=== PATIENT | female | born 1945 | race Hispanic/Latino ===

== ENCOUNTER 2019-10-06 21:38 | Emergency (ER) | payer MEDICARE, OTHER ==
[~2019-10-06] VITALS: Ht 154.9 cm; Wt 72.6 kg
[2019-10-06] MEDS ORDERED: SODIUM CHLORIDE 0.9% 1000ML 1,000 ML IV STA (21:43)
--- NOTE | 2019-10-06 21:47 | Emergency Department Note ---
History of Present Illnes History of Present Illness History of Present Illness This is a 74 year old female with acute onset of n/v and epigastric pain since yesterday. Denies fevers . PSH significant for hysterectomy secondary to uterine CA and later gastric tumor done 1-2 years ago at [facility] by Dr Micheline Durand Historian: Patient, Family Member Arrival Mode: Car History limited by: language barrier Well Logger Required: Yes Onset (how long ago): day(s) (1) Location: epigastric Radiation: Reports abdomen Severity: moderate Duration (how long): day(s) (1) Timing of current episode: constant Progression: worsening Context: Denies recent illness, Denies recent surgery, Denies recent immobilization, Denies recent travel, Denies trauma/injury, Denies new medications, Denies hx of DVT/PE, Denies non-compliance w/ medications, Denies other Relieving factors: none Exacerbating factors: none, eating Associated symptoms: Reports nausea/vomiting Treatments prior to arrival: none Past Medical/Family History Physician Review I have reviewed the patient's past medical and family history. Any updates have been documented here. Past Medical History Recent Fever: No Clinical Suspicion of Infectio: No New/Unexplained Change in Ment: No Other Medical History: Uterine CA Gastric tumor gastritis, arthritis Other Surgery: Gastric Tumor resection hysterectomy Social History Smoking Cessation: Never Smoker Alcohol Use: None Any Illegal Drug Use: No Other Last Tetanus: ood Review of Systems Review of Systems Constitutional: Reports no symptoms EENTM: Reports no symptoms Cardiovascular: Reports no symptoms Respiratory: Reports no symptoms Gastrointestinal: Reports abdominal pain, Reports nausea, Reports vomiting Genitourinary: Reports no symptoms Musculoskeletal: Reports no symptoms Integumentary: Reports no symptoms Neurological: Reports no symptoms Psychological: Reports no symptoms Endocrine: Reports no symptoms Hematological/Lymphatic: Reports no symptoms Physical Exam Related Data Allergies: Coded Allergies: No Known Allergies (Unverified , 09/27/15) Triage Vital Signs Vital Signs Date Time Temp Pulse Resp B/P (MAP) Pulse Ox O2 Delivery O2 Flow Rate FiO2 10/06/19 21:47 99.1 81 16 143/75 99 Room Air Vital signs reviewed: Yes Physical Exam CONSTITUTIONAL Constitutional: Present well-developed, Present well-nourished HENT HENT: Present normocephalic, Present atraumatic, Present oropharynx clear/moist, Present nose normal HENT L/R: Present left ext ear normal, Present right ext ear normal EYES Eyes: Reports PERRL, Reports conjunctivae normal NECK Neck: Present ROM normal PULMONARY Pulmonary: Present effort normal, Present breath sounds normal CARDIOVASCULAR Cardiovascular: Present regular rhythm, Present heart sounds normal, Present capillary refill normal, Present normal rate GASTROINTESTINAL Abdominal: Present soft, Present tender (epigastric) GENITOURINARY Genitourinary: Present exam deferred SKIN Skin: Present warm, Present dry MUSCULOSKELETAL Musculoskeletal: Present ROM normal NEUROLOGICAL Neurological: Present alert, Present oriented x 3, Present no gross motor or sensory deficits PSYCHOLOGICAL Psychological: Present mood/affect normal, Present judgement normal Results Laboratory Lab results reviewed: Yes Laboratory comments Laboratory Tests Test 10/06/19 22:02 White Blood Count 11.62 x10e3/uL (4.8-10.8) Red Blood Count 4.47 x10e6/uL (3.6-5.1) Hemoglobin 13.7 g/dL (12.0-16.0) Hematocrit 42.6 % (34.2-44.1) Mean Corpuscular Volume 95.3 fL (81-99) Mean Corpuscular Hemoglobin 30.6 pg (28-32) Mean Corpuscular Hemoglobin Concent 32.2 g/dL (31-35) Red Cell Distribution Width 13.3 % (11.7-14.4) Platelet Count 210 x10e3/uL (140-360) Neutrophils (%) (Auto) 85.5 % (38.7-80.0) Lymphocytes (%) (Auto) 9.0 % (18.0-39.1) Monocytes (%) (Auto) 4.6 % (4.4-11.3) Eosinophils (%) (Auto) 0.3 % (0.0-6.0) Basophils (%) (Auto) 0.2 % (0.0-1.0) Neutrophils # (Auto) 9.9 (2.1-6.9) Lymphocytes # (Auto) 1.0 (1.0-3.2) Monocytes # (Auto) 0.5 (0.2-0.8) Eosinophils # (Auto) 0.0 (0.0-0.4) Basophils # (Auto) 0.0 (0.0-0.1) Absolute Immature Granulocyte (auto 0.05 x10e3/uL (0-0.1) Urine Color Yellow (YELLOW) Urine Clarity Clear (CLEAR) Urine pH 7 (5 - 7) Urine Specific [place] 1.025 (1.010-1.025) Urine Protein 1+ (NEGATIVE) Urine Glucose (UA) Negative (NEGATIVE) Urine Ketones 2+ (NEGATIVE) Urine Blood Negative (NEGATIVE) Urine Nitrite Negative (NEGATIVE) Urine Bilirubin Negative (NEGATIVE) Urine Urobilinogen 0.2 mg/dL (0.2 - 1) Urine Leukocyte Esterase Trace (NEGATIVE) Urine RBC None /HPF (0-5) Urine WBC 0-5 /HPF (0-5) Urine Epithelial Cells Moderate /LPF (NONE) Urine Transitional Epithelial Cells Few (NONE) Urine Bacteria Moderate /HPF (NONE) Sodium Level 140 mmol/L (136-145) Potassium Level 4.2 mmol/L (3.5-5.1) Chloride Level 100 mmol/L (98-107) Carbon Dioxide Level 25 mmol/L (22-29) Anion Gap 19.2 mmol/L (8-16) Blood Urea Nitrogen 11 mg/dL (7-26) Creatinine 0.82 mg/dL (0.57-1.11) Estimat Glomerular Filtration Rate > 60 ML/MIN (60-) BUN/Creatinine Ratio 13 (6-25) Glucose Level 141 mg/dL (74-118) Calcium Level 10.6 mg/dL (8.4-10.2) Total Bilirubin 0.5 mg/dL (0.2-1.2) Aspartate Amino Transf (AST/SGOT) 24 IU/L (5-34) Alanine Aminotransferase (ALT/SGPT) 25 IU/L (0-55) Alkaline Phosphatase 86 IU/L (40-150) Creatine Kinase 81 IU/L (29-168) Creatine Kinase MB 1.30 ng/mL (0-5.0) Troponin I 0.001 ng/mL (0-0.300) Total Protein 8.5 g/dL (6.5-8.1) Albumin 4.5 g/dL (3.5-5.0) Globulin 4.0 g/dL (2.3-3.5) Albumin/Globulin Ratio 1.1 (0.8-2.0) Lipase 67 U/L (8-78) Imaging Imaging results reviewed: Yes Impressions [facility] [address] [address] Patient Name: BEATRIZ AQUINO MR #: [id number] : 1945 Age/Sex: 74/F Req #: [id number] Adm Physician: Ordered by: WENDY ADAMS DO Report #: [id number] Location: ER Room/Bed: Procedure: [id number] CT/CT ABDOMEN/PELVIS W Exam Date: 10/06/19 Exam Time: 2335 REPORT STATUS: Signed EXAM: CT Abdomen and Pelvis WITH contrast INDICATION: epigastric pain COMPARISON: None. TECHNIQUE: Abdomen and pelvis were scanned utilizing a multidetector helical scanner from the lung base to the pubic symphysis after administration of IV contrast. Coronal and sagittal reformations were obtained. Routine protocol was performed. Scan was performed when during portal venous phase. IV CONTRAST: 100 mL of Isovue 370 ORAL CONTRAST: None COMPLICATIONS: None RADIATION DOSE: Total DLP: 361.29 mGy*cm Estimated effective dose: (DLP x 0.015 x size factor) mSv CTDIvol has been reviewed. It is below the limits set by the Radiation Protocol Committee (RPC). Dose modulation, iterative reconstruction, and/or weight based adjustment of the mA/kV was utilized to reduce the radiation dose to as low as reasonably achievable. FINDINGS: LINES and TUBES: None. LOWER THORAX: Unremarkable HEPATOBILIARY: Simple hepatic cyst. Mild prominence of the extra and intrahepatic biliary ducts likely due to cholecystectomy GALLBLADDER: There are cholecystectomy clips. SPLEEN: No splenomegaly. PANCREAS: No focal masses or ductal dilatation. ADRENALS: No adrenal nodules KIDNEYS/URETERS: Kidneys enhance symmetrically. No hydronephrosis. 6.1 cm simple right renal cyst. Additional right renal hypodensity that is too small to characterize, likely cyst. GI TRACT: Mildly dilated loops of small bowel measuring up to 3.3 cm with suspected transition point in the left hemiabdomen anteriorly on series #2 image 52. Distal bowel is decompressed. Subtle suggestion of fecalization within the small bowel seen on image #62. Trace free fluid adjacent to the transition point. There are diverticula within the colon without evidence of diverticulitis. Appendix is normal. There are a few short segment of the obstructive portions of the small bowel that demonstrate focal narrowing and hyperenhancement, which could be peristalsis, but an underlying inflammatory process is not excluded including inflammatory bowel disease. For reference, series #2 image 58. However, the terminal ileum appears unremarkable. PELVIC ORGANS/BLADDER: Hysterectomy. No adnexal masses. Urinary bladder unremarkable. LYMPH NODES: No lymphadenopathy. VESSELS: Unremarkable. PERITONEUM / RETROPERITONEUM: No free air. BONES: Unremarkable. SOFT TISSUES: Unremarkable. IMPRESSION: 1. Findings likely represent an early high-grade small bowel obstruction with transition point in the left lower quadrant. Trace free fluid adjacent to the transition point. Otherwise, no CT evidence of ischemia. 2. Short segments of the dilated portions of the small bowel demonstrate focal narrowing and hyperenhancement of the bowel parnell. This could represent peristalsis, but inflammatory bowel disease is not excluded. Consider follow-up abdomen and pelvis CT with contrast in 3 months to reassess. 3. Colonic diverticulosis without evidence of acute diverticulitis. Signed by: Geovanna Rees MD on 10/07/2019 12:54 AM Dictated By: GEOVANNA REES MD Transcribed By: MEIR on 10/07/1952 COPY TO: WENDY ADAMS DO~ Assessment & Plan Medical Decision Making MDM Diff Dx : SBO, Appendectomy, biliary pathology, ACS, Cancer, diverticulitis, mesenteric ischemia, COVID-19 infectoin Assessment & Plan Final Impression: (1) SBO (small bowel obstruction) (2) UTI (urinary tract infection) Depart Disposition: TRANS TO OTHER [facility] Home Meds No Active Prescriptions or Reported Meds Medications in the ED Sodium Chloride 1,000 ml @ 0 mls/hr Q0M STAT IV Last administered on 10/06/19at 22:19; Admin Dose 1,000 MLS/HR; Start 10/06/19 at 21:43; Stop 10/06/19 at 21:44 Morphine Sulfate 4 mg ONCE STAT IV Last administered on 10/06/19at 23:06; Admin Dose 4 MG; Start 10/06/19 at 22:32; Stop 10/06/19 at 22:33 Sodium Chloride 50 ml @ ud STK-MED ONCE .ROUTE ; Start 10/06/19 at 23:34; Stop 10/06/19 at 23:28; Status DC Iopamidol 74,000 mg STK-MED ONCE INJ ; Start 10/06/19 at 23:34; Stop 10/06/19 at 23:28; Status DC Piperacillin Sod/ Tazobactam Sod 50 ml @ 50 mls/hr ONCE STAT IV Last administered on 10/07/19at 02:16; Admin Dose 50 MLS/HR; Start 10/07/19 at 01:07; Stop 10/07/19 at 02:06 WENDY ADAMS DO Oct 06, 2019 21:47
[2019-10-06 22:14] LABS: BASOPHILS % 0.2 % (0.0-1.0); EOSINOPHILS % 0.3 % (0.0-6.0); HEMATOCRIT 42.6 % (34.2-44.1); HEMOGLOBIN 13.7 g/dL (12.0-16.0); MEAN CORPUSCULAR HEMOGLOBIN 30.6 pg (28-32); MEAN CORPUSCULAR HGB CONC 32.2 g/dL (31-35); MEAN CORPUSCULAR VOLUME 95.3 fL (81-99); MONOCYTES # (AUTO) 0.5 (0.2-0.8); MONOCYTES % 4.6 % (4.4-11.3); NEUTROPHILS # (AUTO) 9.9 (2.1-6.9); NEUTROPHILS % 85.5 % (38.7-80.0); PLATELET COUNT 210 x10e3/uL (140-360); RED BLOOD COUNT 4.47 x10e6/uL (3.6-5.1); RED CELL DISTRIBUTION WIDTH 13.3 % (11.7-14.4)
[2019-10-06 22:16] LABS: BILIRUBIN,URINE NEGATIVE (NEGATIVE); CLARITY,URINE CLEAR (CLEAR); COLOR,URINE YELLOW (YELLOW); KETONES,URINE 2+ (NEGATIVE); LEUKOCYTE ESTERASE ,URINE TRACE (NEGATIVE); NITRITE,URINE NEGATIVE (NEGATIVE); PROTEIN,URINE DIPSTICK 1+ (NEGATIVE); URINE UROBILINOGEN 0.2 mg/dL (0.2 - 1)
[2019-10-06 22:27] LABS: BACTERIA,URINE MODERATE /HPF; EPITHELIAL CELLS,URINE MODERATE /LPF; TRANSITIONAL EPI CELLS,URINE FEW; WBC,URINE (MAN) 0-5 /HPF (0-5)
--- OUTSIDE RECORDS SUMMARY | 2019-10-06 22:28 | XMS REPORT | Summary of Care ---
Author Author [facility] Organization [facility] Address Unknown Phone Unavailable Encounter ANKUSH Enamorado(RICKEY) [id number] Date(s): 07/13/19 - 08/11/[address] [facility] [address] [place] [address] [phone] Discharge Disposition: Home or Self Care Attending Physician: Micheline Durand MD Referring Physician: Micheline Durand MD Vital Signs Most recent to 1 oldest [Reference Range]: Height 160.5 cm (07/13/19 10:18 AM) Temperature Oral 97.9 DegF [96.4-99.1 DegF] (07/13/19 10:18 AM) Blood Pressure 106/71 mmHg [90-140/60-90 mmHg] (07/13/19 10:18 AM) Respiratory Rate 18 BRMIN [14-20 BRMIN] (07/13/19 10:18 AM) Peripheral Pulse 73 bpm Rate [60-100 bpm] (07/13/19 10:18 AM) Weight 73 kg (07/13/19 10:18 AM) Body Mass Index 28.34 m2 (07/13/19 10:18 AM) Problem List Condition Effective Dates Status Health Status Informan t Depression(Confirmed Resolved ) Arthritis(Confirmed) Active SOB (shortness of Active breath)(Confirmed)1 SOB (shortness of Resolved breath) on exertion(Confirmed) Fatigue(Confirmed) Active GERD Active (gastroesophageal reflux disease)(Confirmed) Headache(Confirmed)2 Active Frequent Active urination(Confirmed) Uterine Active cancer(Confirmed) Uterine Active cancer(Confirmed) Nausea(Confirmed) Active Nausea(Confirmed) Active Obesity(Confirmed) Active Osteoarthritis(Confi Active rmed) Leg pain, Active bilateral(Confirmed) 3 Pelvic Active pain(Confirmed) Vaginal Active itching(Confirmed) Vaginal Active itching(Confirmed) Vaginal Active bleeding(Confirmed) Vaginal Active bleeding(Confirmed) Vaginal Active pain(Confirmed) 1Pt states sometimes when she bends down to tie her shoes 2Pt states she has headaches sometimes 3Pt states her right leg hurts more than the left leg Allergies, Adverse Reactions, Alerts No Known Medication Allergies Medications Buffered Lidocaine 0.3 mL, Route: INTRADERM, Drug Form: INJ, Dosing Weight 71.136, kg, Day of Tx, P RN Other -See Comment, port access, Routine, Start date: 10/28/17 10:00:00 CDT, Stop date: 10/29/17 9:59:00 CDT, Future Order, Cycle 6 Notes: Ingredients: 10 mg/5 ml lidocaine, 0.5 ml sodium bicarbonate 8.4% inj t otal volume = 0.3 ml Refrigerate: 14 days Room temp: 7 day Start Date: 10/28/17 Stop Date: 10/21/17 Status: Canceled CISplatin XRT (DoT) 68 mg + Overfill Diluent Estimated 50 mL + Sodium Chloride 0 .9% IV 500 mL 618 ml/hr, Infuse Over: 1 hr, Route: IVPB, 618, Drug form: INJ, Day of Tx, Prior ity: Routine, Dosing Weight 71.136 kg, Start date: 10/28/17, Cycle 6 Notes: CHEMOTHERAPY; Infuse entire contents for full doseWASTE: F/P - Black; E - Yellow Caution: Cytotoxic agent! Handle with care. Start Date: 10/28/17 Stop Date: 10/21/17 Status: Canceled dexamethasone 20 mg, 5 mL, Route: IVP, Drug form: INJ, Day of Tx, Dosing Weight 71.136, kg, Pr iority: Routine, Start date: 10/28/17, Cycle 6 Start Date: 10/28/17 Stop Date: 10/21/17 Status: Canceled diphenhydrAMINE 50 mg, 1 mL, Route: IVP, Drug form: INJ, Day of Tx, Dosing Weight 71.136, kg, MT N Allergic reaction, Push slowly through running safety line., Priority: Routine , Start date: 10/28/17 10:00:00 CDT, Stop date: 10/29/17 9:59:00 CDT, Cycle 6 Notes: (Same as: Benadryl) Start Date: 10/28/17 Stop Date: 10/21/17 Status: Canceled EPINEPHrine 1 mg/10mL injectable solution 0.1 mg, 1 mL, Route: IVP, Drug form: SOLN, Day of Tx, Dosing Weight 71.136, kg, PRN Allergic reaction, If symptoms do not resolve in 5 minutes or worsen, given 1 mL IVP through running safety line., Priority: Routine, Start date: 10/28/17 1 0:00:00 CDT... Notes: Luer lock syringe Start Date: 10/28/17 Stop Date: 10/21/17 Status: Canceled hydrocortisone 100 mg, 2 mL, Route: IVP, Drug form: PDR/INJ, Day of Tx, Dosing Weight 71.136, k g, PRN Allergic reaction, through running safety line, Priority: Routine, Start date: 10/28/17 10:00:00 CDT, Stop date: 10/29/17 9:59:00 CDT, Cycle 6 Notes: (Same as: Solu-CORTEF) Start Date: 10/28/17 Stop Date: 10/21/17 Status: Canceled ondansetron 8 mg, 4 mL, Route: IVP, Drug form: INJ, Day of Tx, Dosing Weight 71.136, kg, Rukhsana ority: Routine, Start date: 10/28/17, Cycle 6 Notes: (Same as: Ghulam) MEDICATION WASTE Product Size: 4 mgProduct Was scot: __0_ mg Start Date: 10/28/17 Stop Date: 10/21/17 Status: Canceled Sodium Chloride 0.45% IV 500 mL + magnesium sulfate IV 16 mEq 500 mL, Rate: 500 ml/hr, Infuse over: 1 hr, Route: IV, Dosing Weight 71.136 kg, Total Volume: 504, Priority: Routine, Start date: 10/28/17 10:00:00 CDT, Stop da te: 10/29/17 9:59:00 CDT, Future Order, Cycle 6, 1.75, m2 Start Date: 10/28/17 Stop Date: 10/21/17 Status: Canceled Sodium Chloride 0.9% IV 250 mL 250 mL, Rate: 25 ml/hr, Infuse over: 10 hr, Route: INJ, Dosing Weight 71.136 kg, Total Volume: 250, Priority: Routine, Start date: 10/28/17 10:00:00 CDT, Stop d ate: 10/29/17 9:59:00 CDT, Future Order, Cycle 6, 1.75, m2 Start Date: 10/28/17 Stop Date: 10/21/17 Status: Canceled Sodium Chloride 0.9% IV 500 mL 500 mL, Rate: 500 ml/hr, Infuse over: 1 hr, Route: IV, Dosing Weight 71.136 kg, Total Volume: 500, PRN Allergic reaction. Run through safety line., Priority: Ro ashleene, Start date: 10/28/17 10:00:00 CDT, Stop date: 10/29/17 9:59:00 CDT, Futur e Order, Cy... Start Date: 10/28/17 Stop Date: 10/21/17 Status: Canceled Sodium Chloride 0.9% IV 500 mL + magnesium sulfate IV 16 mEq 500 mL, Rate: 500 ml/hr, Infuse over: 1 hr, Route: IV, Dosing Weight 71.136 kg, Total Volume: 504, Priority: Routine, Start date: 10/28/17 12:00:00 CDT, Stop da te: 10/29/17 9:59:00 CDT, Future Order, Cycle 6, 1.75, m2 Start Date: 10/28/17 Stop Date: 10/21/17 Status: Canceled Zero Time Placeholder Day of Tx, 10/28/17, [phone], 10/28/17 11:00:00 CDT, Future Order, Cycle 6, -1 Start Date: 10/28/17 Stop Date: 10/21/17 Status: Canceled Results Most recent to 1 oldest [Reference Range]: CA 125 [0.0-35.0 6.9 unit/mL unit/mL] (07/13/19 11:34 AM) HPV Aptima Negative 1 [Negative] *NA* (07/13/19 12:05 PM) 1Result Comment: This nucleic acid amplification test detects fourteen high- risk HPV types (16,18,31,33,35,39,45,51,52,56,58,59,66,68) without differentiation. Source.............Cervix LMP / Prev Treat...None No. of containers..01 ThinPrep Vial Performed At: [id number] [place], [place] [id number] Duffy MD Ph:[phone] Performed At: [id number] [place], [place] [id number] Duffy MD Ph:[phone] Immunizations Given and Recorded Vaccine Date Status Refusal Reason pneumococcal 13-valent vaccine 08/17/17 Given pneumococcal 13-valent vaccine 01/11/17 Given influenza virus vaccine, inactivated 01/11/17 G iven Procedures Procedure Date Related Diagnosis Body Site Status BSO - Bilateral salpingo-oophorectomy Completed Cholecystectomy Completed Hysterectomy Completed Social History Social History Type Response Alcohol Never Smoking Status Never smoker; Type: Cigaret keshav; Previous treatment: None; Exposure to Tobacco Smoke None; Cigarette Smoking L ast 365 Days No; Reg Smoking Cessation Counseling No1 entered on: 07/13/19 1Pt has never smoked Assessment and Plan No data available for this section
--- OUTSIDE RECORDS SUMMARY | 2019-10-06 22:28 | XMS REPORT | Continuity of Care Document ---
Author Author CMEBEATRIZ [employer] Address Unknown Phone Unavailable Care Team Providers Care Land Law Examiner Name Role Phone [employer] Information Exchange Unavailable Un available Problems Problem Status Onset Date Classification Date Reported Comments Source LAB- FU Active 04/13/2019 [facility] LABS AND FOLLOW UP Active 03/12/2019 [facility] MALIGNANT NEOPLASM O,SWELLING OF LOWER E Active 01/07/[address] [facility] FOLLOW UP Active 10/06/2018 [facility] C54.1, M79.89 Active 10/03/[address] [facility] C54.1 - MALIGNANT NEOPLASM OF ENDOMETR Active 09/18/2018 LYNN Peterson LAB, F/U Active 05/19/2018 [facility] LABS /FU Active 05/05/2018 [facility] Malignant (primary) neoplasm, unspecified 03/22/2018 10/06/2018 [facility] Malignant neoplasm of endometrium 03/04/2018 09/16/2018 [facility], Janina Guzman Malignant neoplasm of overlapping sites of corpus uter i 11/27/2017 06/10/2018 [facility] LYNN Peterson LABS, F/U Active 11/01/2017 [facility] 30 DAY Active 09/18/2017 [facility] LABS AND F/U Active 08/26/2017 [facility] ENDOMETRIAL CANCER, C54.1 Acti ve 07/30/2017 [facility] CONSULT Active 03/08/2017 [facility] ENDOMETRIAL CANCER Active 12/17/2016 [facility] OVARIAN CANCER Active 11/19/2016 [facility] M54.2 - CERVICALGIA Active 01/24/2016 KARLAD Peterson Acute depression (disorder) Re solved Problem 03/2019 [facility], Janina Guzman LYNN Branham,[facility], OPID Keene Arthritis (disorder) Active Problem 08/13/2019 [facility], Janina Guzman, OPID Peterson, [facility], OPID Keene Dyspnea (finding) Active Problem 08/13/2019 Pt states sometimes when she bends down to tie her shoes [facility], KARLAD Thomas, OPID Peterson,[facility], OPID Keene Fatigue (finding) Active Problem 08/13/2019 [facility], O PID Thomas, OPID Peterson,[facility], OPID Keene Gastroesophageal reflux disease (disorder) Active Problem 08/13/2019 [facility], OPID Thomas, OPID Peterson,[facility], OPID Keene Headache (finding) Active Problem 08/13/2019 Pt states she has headaches sometimes [facility], KARLAD Thomas, OPID Peterson,[facility], OPID Keene Increased frequency of urination (finding) Active Problem 08/13/2019 [facility], KARLAD Thomas, OPID Peterson,[facility], OPID Keene Malignant neoplasm of uterus (disorder) Active Problem 08/13/2019 [facility], KARLAD Thomas, OPID Peterson,[facility], OPID Keene Obesity (disorder) Active Problem 08/13/2019 [facility], O PID Thomas, OPID Peterson,[facility], OPID Keene Osteoarthritis (disorder) Acti ve Problem 03/2019 [facility], O PID Thomas, OPID Peterson,[facility], OPID Keene Pain in lower limb (finding) A ctive Problem 03/2019 Pt states her right leg hurts more than the left leg [facility], LYNN Guzman, OPID Peterson,[facility], OPID Keene Pain in pelvis (finding) Active Problem 08/13/2019 [facility], O PID Thomas, OPID Peterson,[facility], OPID Keene Bleeding from vagina (finding) Active Problem 03/2019 [facility], O PID Thomas, OPID Peterson,[facility], OPID Keene Dyspnea on exertion (finding) Resolved Problem 03/2019 [facility], O PID Thomas, OPID Peterson,[facility], OPID Keene Nausea (finding) Active Problem 08/13/2019 [facility], O PID Jarales, OPID Peterson,[facility], OPID Keene Pruritus of vagina (disorder) Active Problem 03/2019 [facility], O PID Thomas, OPID Peterson,[facility], OPID Keene Vaginal pain (finding) Active Problem 08/13/2019 [facility], O PID Thomas, OPID Peterson,[facility], OPID Keene Other specified postprocedural states 09/16/2018 [facility] Constipation, unspecified 09/16/2018 [facility] Shortness of breath 05/11/2018 [facility] Anxiety disorder, unspecified 05/11/2018 [facility] Pelvic and perineal pain 10/06/2018 [facility] Bilateral primary osteoarthritis of knee 05/11/2018 [facility] Other senior care (current) drug therapy 06/29/2018 [facility] Endometriosis of uterus 06/04/2017 [facility] Other specified noninflammatory disorder s of cervix uteri 06/04/2017 [facility] Nicotine dependence, cigarettes, uncomplicated 06/29/2018 [facility] Gastro-esophageal reflux disease without esophagitis 10/06/2018 [facility] Obesity, unspecified 10/06/2018 [facility] Edema, unspecified 06/29/2018 [facility] Major depressive disorder, single episode, unspecified 06/29/2018 [facility] Erythematous condition, unspecified 05/25/2018 [facility] Urgency of urination 05/25/2018 [facility] Nausea with vomiting, unspecified 05/25/2018 [facility] Other fatigue 10/06/2018 [facility] Abdominal distension (gaseous) 05/25/2018 [facility] Insomnia, unspecified 05/25/2018 [facility] Dizziness and giddiness 05/25/2018 [facility] Unspecified osteoarthritis, unspecified site 10/06/2018 [facility] Frequency of micturition 10/06/2018 [facility] Headache 10/06/2018 [facility] Pain in left leg 10/06/2018 [facility] Pain in right leg 10/06/2018 [facility] Nausea 10/06/2018 [facility] MALIGNANT NEOPLASM OF OVERLAPPING SITES Active [facility] MALIGNANT NEOPLASM OF ENDOMETRIUM Active [facility] OTHER SPECIFIED SOFT TISSUE DISORDERS Active [facility] Medications Medication Details Route Status Patient Instructions Ordering Provider Order Date Source pantoprazole 40 mg oral enteric coated tablet TOME 1 TABLETA CADA STEPHANIA Active 02/17/2018 [facility] Sodium Chloride 0.9% IV 500 mL + magnesi um sulfate IV 16 mEq 500 mL, Rate: 500 ml/hr, Infuse over: 1 hr, Route: IV, Dosing Weight 71.136 kg, Total Volume: 504, Priority: Routine, Start date: 10/28/17 12:00:00 CDT, Stop date: 10/29/17 9:59:00 CDT, Future Order, Cycle 6, 1.75, m2 No Longer Active 10/28/2017 [facility], LYNN Guzman, LYNN Branham,[facility] LYNN Sexton CISplatin XRT (DoT) 68 mg + Overfill Dil uent Estimated 50 mL + Sodium Chloride 0.9% IV 500 mL Notes: CHEMOTHERAPY; Infuse entire contents for full dose WASTE: F/P - Black; E - Yellow Caution: Cytotoxic agent! Handle with care. No Longer Active 10/28/2017 [facility], LYNN Guzman, LYNN Branham,[facility], LYNN Sexton Zero Time Placeholder Day of T x, 10/28/17, [phone], 10/28/17 11:00:00 CDT, Future Order, Cycle 6, -1 No Longer Active 10/28/2017 [facility], LYNN Guzman, LYNN Branham,[facility] LYNN Sexton Ondansetron Notes: (Same as: Cristy lópez) MEDICATION WASTE Product Size: 4 mg Product Wasted: __0_ mg No Longer Active 10/28/2017 [facility], LYNN Guzman, LYNN Branham,[facility] LYNN Sexton Dexamethasone 20 mg, 5 mL, Rou te: IVP, Drug form: INJ, Day of Tx, Dosing Weight 71.136, kg, Priority: Routine, Start date: 10/28/17, Cycle 6 No Longer Active 10/28/2017 [facility], LYNN Guzman, LYNN Branham,[facility], OPID Keene Sodium Chloride 0.9% IV 250 mL 250 mL, Rate: 25 ml/hr, Infuse over: 10 hr, Route: INJ, Dosing Weight 71.136 kg, Total Volume: 250, Priority: Routine, Start date: 10/28/17 10:00:00 CDT, Stop date: 10/29/17 9:59:00 CDT, Future Order, Cycle 6, 1.75, m2 No Longer Active 10/28/2017 [facility], LYNN Guzman, LYNN Branham,[facility], OPID Keene Sodium Chloride 0.45% IV 500 mL + magnes ium sulfate IV 16 mEq 500 mL, Rate: 500 ml/hr, Infuse over: 1 hr, Route: IV, Dosing Weight 71.136 kg, Total Volume: 504, Priority: Routine, Start date: 10/28/17 10:00:00 CDT, Stop date: 10/29/17 9:59:00 CDT, Future Order, Cycle 6, 1.75, m2 No Longer Active 10/28/2017 [facility], LYNN Guzman, LYNN Branham,[facility], OPIJarett BarthKeene 10 ML Epinephrine 0.1 MG/ML Prefilled Syringe Notes: Luer lock syringe No Longer Active 10/28/2017 [facility], LYNN Guzman, LYNN Branham,[facility], OPID Keene Diphenhydramine Notes: (Same a s: Benadryl) No Longer Active 10/28/2017 [facility], LYNN Guzman, LYNN Branham,[facility], OPID Keene Sodium Chloride 0.9% IV 500 mL 500 mL, Rate: 500 ml/hr, Infuse over: 1 hr, Route: IV, Dosing Weight 71.136 kg, Total Volume: 500, PRN Allergic reaction. Run through safety line., Priority: Routine, Start date: 10/28/17 10:00:00 CDT, Stop date: 10/29/17 9:59:00 CDT, Future Order, Cy... No Longer Active 10/28/2017 [facility], LYNN Guzman, LYNN Branham,[facility] Hydrocortisone Notes: (Same as : YanetJOSE RAMONKRYS) No Longer Active 10/28/2017 [facility], [facility] Guzman, [facility] Lidocaine Notes: Ingredients: 10 mg/5 ml lidocaine, 0.5 ml sodium bicarbonate 8.4% inj total volume = 0.3 ml Refrigerate: 14 days Room temp: 7 day No Longer Active 10/28/2017 [facility], LYNN Guzman, LYNN Branham,[facility] Ondansetron 8 mg, Route: IVP, Drug form: INJ, ONCE, Dosing Weight 68.239, kg, Start date: 10/25/17 15:08:00 CDT, Stop date: 10/25/17 15:08:00 CDT No Longer Active 10/25/2017 [facility] Ondansetron 8 MG Disintegrating Tablet 8 mg = 1 tab, PO, TID, # 30 tab, 1 Refill(s), Pharmacy: [facility]/pharmacy #[id number] No Longer Active 10/25/2017 [facility] Phenergan 25 mg oral tablet 25 mg = 1 tab, PO, Q6H, # 30 tab, 0 Refill(s), Pharmacy: [facility]/pharmacy #[id number] No Longer Active 10/24/2017 [facility] Sodium Chloride 0.9% IV 500 mL + magnesi um sulfate IV 16 mEq 500 mL, Rate: 500 ml/hr, Infuse over: 1 hr, Route: IV, Dosing Weight 71.136 kg, Total Volume: 504, Priority: Routine, Start date: 10/21/17 15:10:00 CDT, Stop date: 10/22/17 13:09:00 CDT, Cycle 5, 1.75, m2 No Longer Active 10/21/2017 [facility] CISplatin XRT (DoT) 68 mg + Overfill Dil uent Estimated 50 mL + Sodium Chloride 0.9% IV 500 mL Notes: CHEMOTHERAPY; Infuse entire contents for full dose WASTE: F/P - Black; E - Yellow Caution: Cytotoxic agent! Handle with care. Inactive 10/21/2017 [facility] Zero Time Placeholder Day of T x, 10/21/17 14:10:00 CDT, 10/21/17 14:10:00 CDT, [phone], 10/21/17 14:10:00 CDT, Cycle 5, -1 Inactive 10/21/2017 [facility] Ondansetron Notes: (Same as: Cristy lópez) MEDICATION WASTE Product Size: 4 mg Product Wasted: __0_ mg Inactive 10/21/2017 [facility] Dexamethasone 20 mg, 5 mL, Rou te: IVP, Drug form: INJ, Day of Tx, Dosing Weight 71.136, kg, Priority: Routine, Start date: 10/21/17 13:40:00 CDT, Stop date: 10/21/17 13:40:00 CDT, Cycle 5 Inactive 10/21/2017 [facility] Sodium Chloride 0.9% IV 250 mL 250 mL, Rate: 25 ml/hr, Infuse over: 10 hr, Route: INJ, Dosing Weight 71.136 kg, Total Volume: 250, Priority: Routine, Start date: 10/21/17 13:10:00 CDT, Stop date: 10/22/17 13:09:00 CDT, Cycle 5, 1.75, m2 Active 10/21/2017 [facility] ntelgin Sodium Chloride 0.45% IV 500 mL + magnes ium sulfate IV 16 mEq 500 mL, Rate: 500 ml/hr, Infuse over: 1 hr, Route: IV, Dosing Weight 71.136 kg, Total Volume: 504, Priority: Routine, Start date: 10/21/17 13:10:00 CDT, Stop date: 10/22/17 13:09:00 CDT, Cycle 5, 1.75, m2 No Longer Active 10/21/2017 [facility] 10 ML Epinephrine 0.1 MG/ML Prefilled Syringe Notes: Luer lock syringe Active 10/21/2017 [facility] Diphenhydramine Notes: (Same a s: Benadryl) Active 10/21/2017 [facility] Sodium Chloride 0.9% IV 500 mL 500 mL, Rate: 500 ml/hr, Infuse over: 1 hr, Route: IV, Dosing Weight 71.136 kg, Total Volume: 500, PRN Allergic reaction. Run through safety line., Priority: Routine, Start date: 10/21/17 13:10:00 CDT, Stop date: 10/22/17 13:09:00 CDT, Cycle 5, 1.75, m2 Active 10/21/2017 [facility] Hydrocortisone Notes: (Same as : Junaid-CORTEF) Active 10/21/2017 [facility] Lidocaine Notes: Ingredients: 10 mg/5 ml lidocaine, 0.5 ml sodium bicarbonate 8.4% inj total volume = 0.3 ml Refrigerate: 14 days Room temp: 7 day Active 10/21/2017 [facility] Sodium Chloride 0.9% IV 500 mL + magnesi um sulfate IV 16 mEq 500 mL, Rate: 500 ml/hr, Infuse over: 1 hr, Route: IV, Dosing Weight 71.136 kg, Total Volume: 504, Priority: Routine, Start date: 10/15/17 14:30:00 CDT, Stop date: 10/16/17 12:29:00 CDT, Cycle 4, 1.75, m2 No Longer Active 10/15/2017 [facility] CISplatin XRT (DoT) 68 mg + Overfill Dil uent Estimated 50 mL + Sodium Chloride 0.9% IV 500 mL Notes: CHEMOTHERAPY; Infuse entire contents for full dose WASTE: F/P - Black; E - Yellow Caution: Cytotoxic agent! Handle with care. Inactive 10/15/2017 [facility] Zero Time Placeholder Day of T x, 10/15/17 13:30:00 CDT, 10/15/17 13:30:00 CDT, [phone], 10/15/17 13:30:00 CDT, Cycle 4, -1 Inactive 10/15/2017 [facility] Ondansetron Notes: (Same as: Cristy lópez) MEDICATION WASTE Product Size: 4 mg Product Wasted: __0_ mg Inactive 10/15/2017 [facility] Dexamethasone 20 mg, 5 mL, Rou te: IVP, Drug form: INJ, Day of Tx, Dosing Weight 71.136, kg, Priority: Routine, Start date: 10/15/17 13:00:00 CDT, Stop date: 10/15/17 13:00:00 CDT, Cycle 4 Inactive 10/15/2017 [facility] Sodium Chloride 0.9% IV 250 mL 250 mL, Rate: 25 ml/hr, Infuse over: 10 hr, Route: INJ, Dosing Weight 71.136 kg, Total Volume: 250, Priority: Routine, Start date: 10/15/17 12:30:00 CDT, Stop date: 10/16/17 12:29:00 CDT, Cycle 4, 1.75, m2 Active 10/15/2017 [facility] Sodium Chloride 0.45% IV 500 mL + magnes ium sulfate IV 16 mEq 500 mL, Rate: 500 ml/hr, Infuse over: 1 hr, Route: IV, Dosing Weight 71.136 kg, Total Volume: 504, Priority: Routine, Start date: 10/15/17 12:30:00 CDT, Stop date: 10/16/17 12:29:00 CDT, Cycle 4, 1.75, m2 No Longer Active 10/15/2017 [facility] 10 ML Epinephrine 0.1 MG/ML Prefilled Syringe Notes: Luer lock syringe Active 10/15/2017 [facility] Diphenhydramine Notes: (Same a s: Benadryl) No Longer Active 10/15/2017 [facility] Sodium Chloride 0.9% IV 500 mL 500 mL, Rate: 500 ml/hr, Infuse over: 1 hr, Route: IV, Dosing Weight 71.136 kg, Total Volume: 500, PRN Allergic reaction. Run through safety line., Priority: Routine, Start date: 10/15/17 12:30:00 CDT, Stop date: 10/16/17 12:29:00 CDT, Cycle 4, 1.75, m2 Active 10/15/2017 [facility] Hydrocortisone Notes: (Same as : Solu-CORTEF) Active 10/15/2017 [facility] Lidocaine Notes: Ingredients: 10 mg/5 ml lidocaine, 0.5 ml sodium bicarbonate 8.4% inj total volume = 0.3 ml Refrigerate: 14 days Room temp: 7 day Active 10/15/2017 [facility] Sodium Chloride 0.9% (Bolus) IV 1,000 mL, Route: IV, ONCE, Dosing Weight 69.091 kg, Start date: 10/10/17 15:41:00 CDT, Stop date: 10/10/17 15:41:00 CDT Inactive 10/10/2017 [facility] Ondansetron 4 mg, Route: IM, D rug form: INJ, ONCE, Dosing Weight 69.091, kg, Start date: 10/10/17 15:41:00 CDT, Stop date: 10/10/17 15:41:00 CDT Inactive 10/10/2017 [facility] prochlorperazine 5 mg oral tablet 5 mg = 1 tab, PO, TID, Please provide instructions in Kiswahili, # 30 tab, 0 Refill(s), Pharmacy: [facility]/pharmacy #[id number] No Longer Active 10/10/2017 [facility] Bisacodyl 10 MG Rectal Suppository [Dulcolax] 10 mg = 1 supp, ND, Daily, Please print instructions in equatorial guinean and educate patient., # 14 supp, 0 Refill(s), Pharmacy: [facility]/pharmacy #[id number] Active 10/10/2017 [facility] POLYETHYLENE GLYCOL 3350 142 MG/ML Oral Solution [Miralax] 17 gm, PO, Daily, Please print instructi ons in equatorial guinean and educate patient. Dissolve in water or juice., # 12 ea, 1 Refill(s), Pharmacy: [facility]/pharmacy #[id number] Active 10/10/2017 [facility] Sodium Chloride 0.9% IV 500 mL + magnesi um sulfate IV 16 mEq 500 mL, Rate: 500 ml/hr, Infuse over: 1 hr, Route: IV, Dosing Weight 71.136 kg, Total Volume: 504, Priority: Routine, Start date: 10/07/17 12:23:00 CDT, Stop date: 10/08/17 10:22:00 CDT, Cycle 3, 1.75, m2 No Longer Active 10/07/2017 [facility] CISplatin XRT (DoT) 68 mg + Overfill Dil uent Estimated 50 mL + Sodium Chloride 0.9% IV 500 mL Notes: CHEMOTHERAPY; Infuse entire contents for full dose WASTE: F/P - Black; E - Yellow Caution: Cytotoxic agent! Handle with care. Inactive 10/07/2017 [facility] Zero Time Placeholder Day of T x, 10/07/17 11:23:00 CDT, 10/07/17 11:23:00 CDT, [id number],[id number], 10/07/17 11:23:00 CDT, Cycle 3, -1 Inactive 10/07/2017 [facility] Ondansetron Notes: (Same as: Cristy lópez) MEDICATION WASTE Product Size: 4 mg Product Wasted: __0_ mg Inactive 10/07/2017 [facility] Dexamethasone 20 mg, 5 mL, Rou te: IVP, Drug form: INJ, Day of Tx, Dosing Weight 71.136, kg, Priority: Routine, Start date: 10/07/17 10:53:00 CDT, Stop date: 10/07/17 10:53:00 CDT, Cycle 3 Inactive 10/07/2017 [facility] Sodium Chloride 0.9% IV 250 mL 250 mL, Rate: 25 ml/hr, Infuse over: 10 hr, Route: INJ, Dosing Weight 71.136 kg, Total Volume: 250, Priority: Routine, Start date: 10/07/17 10:23:00 CDT, Stop date: 10/08/17 10:22:00 CDT, Cycle 3, 1.75, m2 No Longer Active 10/07/2017 [facility] Sodium Chloride 0.45% IV 500 mL + magnes ium sulfate IV 16 mEq 500 mL, Rate: 500 ml/hr, Infuse over: 1 hr, Route: IV, Dosing Weight 71.136 kg, Total Volume: 504, Priority: Routine, Start date: 10/07/17 10:23:00 CDT, Stop date: 10/08/17 10:22:00 CDT, Cycle 3, 1.75, m2 No Longer Active 10/07/2017 [facility] 10 ML Epinephrine 0.1 MG/ML Prefilled Syringe Notes: Luer lock syringe No Longer Active 10/07/2017 [facility] Diphenhydramine Notes: (Same a s: Benadryl) No Longer Active 10/07/2017 [facility] Sodium Chloride 0.9% IV 500 mL 500 mL, Rate: 500 ml/hr, Infuse over: 1 hr, Route: IV, Dosing Weight 71.136 kg, Total Volume: 500, PRN Allergic reaction. Run through safety line., Priority: Routine, Start date: 10/07/17 10:23:00 CDT, Stop date: 10/08/17 10:22:00 CDT, Cycle 3, 1.75, m2 No Longer Active 10/07/2017 [facility] Hydrocortisone Notes: (Same as : Solu-CORTEF) No Longer Active 10/07/2017 [facility] Lidocaine Notes: Ingredients: 10 mg/5 ml lidocaine, 0.5 ml sodium bicarbonate 8.4% inj total volume = 0.3 ml Refrigerate: 14 days Room temp: 7 day No Longer Active 10/07/2017 [facility] Sodium Chloride 0.9% IV 500 mL + magnesi um sulfate IV 16 mEq 500 mL, Rate: 500 ml/hr, Infuse over: 1 hr, Route: IV, Dosing Weight 71.136 kg, Total Volume: 504, Priority: Routine, Start date: 09/30/17 13:26:00 CDT, Stop date: 10/01/17 11:25:00 CDT, Cycle 2, 1.75, m2 No Longer Active 09/30/2017 [facility] CISplatin XRT (DoT) 68 mg + Overfill Dil uent Estimated 50 mL + Sodium Chloride 0.9% IV 500 mL Notes: CHEMOTHERAPY; Infuse entire contents for full dose WASTE: F/P - Black; E - Yellow Caution: Cytotoxic agent! Handle with care. Inactive 09/30/2017 [facility] n[facility] Zero Time Placeholder Day of T x, 09/30/17 12:26:00 CDT, 09/30/17 12:26:00 CDT, [id number],[id number], 09/30/17 12:26:00 CDT, Cycle 2, -1 Inactive 09/30/2017 [facility] Ondansetron Notes: (Same as: Cristy lópez) MEDICATION WASTE Product Size: 4 mg Product Wasted: __0_ mg Inactive 09/30/2017 [facility] Dexamethasone 20 mg, 5 mL, Rou te: IVP, Drug form: INJ, Day of Tx, Dosing Weight 71.136, kg, Priority: Routine, Start date: 09/30/17 11:56:00 CDT, Stop date: 09/30/17 11:56:00 CDT, Cycle 2 Inactive 09/30/2017 [facility] Sodium Chloride 0.9% IV 250 mL 250 mL, Rate: 25 ml/hr, Infuse over: 10 hr, Route: INJ, Dosing Weight 71.136 kg, Total Volume: 250, Priority: Routine, Start date: 09/30/17 11:26:00 CDT, Stop date: 10/01/17 11:25:00 CDT, Cycle 2, 1.75, m2 No Longer Active 09/30/2017 [facility] [place] [facility] Sodium Chloride 0.45% IV 500 mL + magnes ium sulfate IV 16 mEq 500 mL, Rate: 500 ml/hr, Infuse over: 1 hr, Route: IV, Dosing Weight 71.136 kg, Total Volume: 504, Priority: Routine, Start date: 09/30/17 11:26:00 CDT, Stop date: 10/01/17 11:25:00 CDT, Cycle 2, 1.75, m2 No Longer Active 09/30/2017 [facility] 10 ML Epinephrine 0.1 MG/ML Prefilled Syringe Notes: Luer lock syringe No Longer Active 09/30/2017 [facility] [place] [facility] Diphenhydramine Notes: (Same a s: Benadryl) No Longer Active 09/30/2017 [facility] Sodium Chloride 0.9% IV 500 mL 500 mL, Rate: 500 ml/hr, Infuse over: 1 hr, Route: IV, Dosing Weight 71.136 kg, Total Volume: 500, PRN Allergic reaction. Run through safety line., Priority: Routine, Start date: 09/30/17 11:26:00 CDT, Stop date: 10/01/17 11:25:00 CDT, Cycle 2, 1.75, m2 No Longer Active 09/30/2017 [facility] Hydrocortisone Notes: (Same as : Solu-CORTEF) No Longer Active 09/30/2017 [facility] Lidocaine Notes: Ingredients: 10 mg/5 ml lidocaine, 0.5 ml sodium bicarbonate 8.4% inj total volume = 0.3 ml Refrigerate: 14 days Room temp: 7 day No Longer Active 09/30/2017 [facility] [place] [facility] Ondansetron Notes: (Same as: Cristy lópez) MEDICATION WASTE Product Size: 4 mg Product Wasted: __0_ mg No Longer Active 09/25/2017 [facility] Calcium Chloride 0.0014 MEQ/ML / Potassi um Chloride 0.004 MEQ/ML / Sodium Chloride 0.103 MEQ/ML / Sodium Lactate 0.028 MEQ/ML Injectable Solution 1,000 mL, 1,000 ml/hr, Infuse Over: 1 hr , Route: IV, 1,000, Drug form: INJ, ONCE, Priority: STAT, Dosing Weight 70.545 kg, Start date: 09/25/17 16:19:00 CDT, Stop date: 09/25/17 16:19:00 CDT, Twice weekly No Longer Active 09/25/2017 [facility] Sodium Chloride 0.9% IV 1000 mL 1,000 mL, Rate: 500 ml/hr, Infuse over: 2 hr, Route: IV, Dosing Weight 70.545 kg, Total Volume: 1,000, Start date: 09/25/17 16:16:00 CDT, Duration: 30 day, Stop date: 11/24/17 16:15:00 CDT, 1.74, m2 No Longer Active 09/25/2017 [facility] Sodium Chloride 0.9% IV 500 mL + magnesi um sulfate IV 16 mEq 500 mL, Rate: 500 ml/hr, Infuse over: 1 hr, Route: IV, Dosing Weight 71.136 kg, Total Volume: 504, Priority: Routine, Start date: 09/23/17 13:22:00 CDT, Stop date: 09/24/17 11:21:00 CDT, Cycle 1, 1.75, m2 No Longer Active 09/23/2017 [facility] CISplatin XRT (DoT) 68 mg + Overfill Dil uent Estimated 50 mL + Sodium Chloride 0.9% IV 500 mL Notes: CHEMOTHERAPY; Infuse entire contents for full dose WASTE: F/P - Black; E - Yellow Caution: Cytotoxic agent! Handle with care. Inactive 09/23/2017 [facility] Zero Time Placeholder Day of T x, 09/23/17 12:22:00 CDT, 09/23/17 12:22:00 CDT, [id number], 09/23/17 12:22:00 CDT, Cycle 1, -1 Inactive 09/23/2017 [facility] potassium chloride Notes: (Enrique e as: KCL) Infuse no faster than 10 mEq/hr if given peripherally. Inactive 09/23/2017 [facility] [place] [facility] Ondansetron Notes: (Same as: Cristy lópez) MEDICATION WASTE Product Size: 4 mg Product Wasted: __0_ mg Inactive 09/23/2017 [facility] Dexamethasone 20 mg, 5 mL, Rou te: IVP, Drug form: INJ, Day of Tx, Dosing Weight 71.136, kg, Priority: Routine, Start date: 09/23/17 11:52:00 CDT, Stop date: 09/23/17 11:52:00 CDT, Cycle 1 Inactive 09/23/2017 [facility] Sodium Chloride 0.9% IV 250 mL 250 mL, Rate: 25 ml/hr, Infuse over: 10 hr, Route: INJ, Dosing Weight 71.136 kg, Total Volume: 250, Priority: Routine, Start date: 09/23/17 11:22:00 CDT, Stop date: 09/24/17 11:21:00 CDT, Cycle 1, 1.75, m2 No Longer Active 09/23/2017 [facility] [place] [facility] Sodium Chloride 0.45% IV 500 mL + magnes ium sulfate IV 16 mEq 500 mL, Rate: 500 ml/hr, Infuse over: 1 hr, Route: IV, Dosing Weight 71.136 kg, Total Volume: 504, Priority: Routine, Start date: 09/23/17 11:22:00 CDT, Stop date: 09/24/17 11:21:00 CDT, Cycle 1, 1.75, m2 No Longer Active 09/23/2017 [facility] 10 ML Epinephrine 0.1 MG/ML Prefilled Syringe Notes: Luer lock syringe No Longer Active 09/23/2017 [facility] [place] [facility] Diphenhydramine Notes: (Same a s: Benadryl) No Longer Active 09/23/2017 [facility] Sodium Chloride 0.9% IV 500 mL 500 mL, Rate: 500 ml/hr, Infuse over: 1 hr, Route: IV, Dosing Weight 71.136 kg, Total Volume: 500, PRN Allergic reaction. Run through safety line., Priority: Routine, Start date: 09/23/17 11:22:00 CDT, Stop date: 09/24/17 11:21:00 CDT, Cycle 1, 1.75, m2 No Longer Active 09/23/2017 [facility] Hydrocortisone Notes: (Same as : Solu-CORTEF) No Longer Active 09/23/2017 [facility] Lidocaine Notes: Ingredients: 10 mg/5 ml lidocaine, 0.5 ml sodium bicarbonate 8.4% inj total volume = 0.3 ml Refrigerate: 14 days Room temp: 7 day No Longer Active 09/23/2017 [facility] [place] [facility] Cephalexin 500 MG Oral Capsule [Keflex] 500 mg = 1 cap, PO, QID, X 7 day, # 28 cap, 0 Refill(s), [id number] No Longer Active 09/19/2017 [facility] Prochlorperazine 10 MG Oral Tablet 10 mg = 1 tab, PO, QID, PRN Nausea, X 30 day, # 120 tab, 1 Refill(s), [id number] No Longer Active 09/16/2017 [facility] Ondansetron 8 MG Oral Tablet 8 mg = 1 tab, PO, TID, PRN Nausea, # 90 tab, 1 Refill(s), [id number] No Longer Active 09/16/2017 [facility] Ondansetron 4 MG Oral Tablet [Zofran] 4 mg = 1 tab, PO, Q8H, PRN Nausea/vomiting, # 30 tab, 0 Refill(s), [id number] Active 08/18/2017 [facility] celecoxib 200 mg oral capsule 200 mg = 1 cap, PO, [id number], # 30 cap, 0 Refill(s), [facility]: [id number] Active 08/18/2017 [facility] acetaminophen 500 mg oral tablet 1,000 mg = 2 tab, PO, Q6Hnow, # 30 tab, 0 Refill(s), Pharmacy: [facility]/pharmacy #[id number] Active 08/18/2017 [facility] simethicone 80 mg oral tablet, chewable 80 mg = 1 tab, PO, Q6H, PRN Gas, # 30 tab, 0 Refill(s), Pharmacy: [facility]/pharmacy #[id number] Active 08/18/2017 [facility] tramadol hydrochloride 50 MG Oral Tablet 50 mg = 1 tab, PO, Q6H, PRN Pain Score 4-6, # 30 tab, 0 Refill(s) Active 08/18/2017 [facility] gabapentin 300 MG Oral Capsule 300 mg = 1 cap, PO, Q8Hnow, # 30 cap, 0 Refill(s), [id number] Active 08/18/2017 [facility] Robaxin Notes: (Same as:Robaxi n) No Longer Active 08/17/2017 [facility] Robaxin Notes: (Same as:Robaxi n) Inactive 08/16/2017 [facility] Lovenox Notes: (Same as: Loven ox) No Longer Active 08/16/2017 [facility] Acetaminophen 1,000 mg, Route: PO, Q6H, Dosing Weight 72.727, kg, Start date: 08/15/17 18:00:00 CDT, Duration: 30 day, Stop date: 09/14/17 12:00:00 CDT Inactive 08/15/2017 [facility] Magnesium Oxide Notes: (Same a s: Mag-Ox 400) Magnesium oxide [id number] elemental magnesium Dose=____mg magnesium oxide (___mg elemental magnesium) No Longer Active 08/15/2017 [facility] Senna Smooth Notes: (Same as: Senokot) No Longer Active 08/15/2017 [facility] gabapentin 800 MG Oral Tablet [Neurontin] 800 mg, 1 tab, Route: PO, Q8H, Dosing Weight 72.727, kg, Start date: 08/15/17 16:00:00 CDT, Duration: 30 day, Stop date: 09/14/17 8:00:00 CDT Inactive 08/15/2017 [facility] Zofran Notes: (Same as: Zofran) No Longer Active 08/15/2017 [facility] Ondansetron Notes: (Same as: Cristy lópez) MEDICATION WASTE Product Size: 4 mg Product Wasted: ___ mg Inactive 08/15/2017 [facility] Naloxone Notes: Same as Narcan Inactive 08/15/2017 [facility] Flumazenil Notes: (Same as: Amparo mazicon) Inactive 08/15/2017 [facility] Hydromorphone Notes: Same as D ilaudid Inactive 08/15/2017 [facility] Acetaminophen Notes: Max aceta minophen 4000 mg/day (4 gm/day). (Same as: Tylenol Extra Strength) No Longer Active 08/15/2017 [facility] hydromorphone (ANES) Route: IV , Drug form: INJ, ONCE, Stop date: 08/15/17 14:46:00 CDT Inactive 08/15/2017 [facility] [place] [facility] neostigmine (ANES) Route: IV, Drug form: INJ, ONCE, Stop date: 08/15/17 14:41:00 CDT Inactive 08/15/2017 [facility] [place] [facility] Reglan Notes: (Same as: Reglan) No Longer Active 08/15/2017 [facility] Oxycodone Hydrochloride 5 MG Oral Tablet 10 mg, Route: PO, Drug form: TAB, Q6H, Dosing Weight 72.727, kg, PRN Pain Score 7-10, Start date: 08/15/17 14:30:00 CDT, Duration: 30 day, Stop date: 09/14/17 14:29:00 CDT Inactive 08/15/2017 [facility] Dilaudid 0.2 mg, Route: IVP, Q 2H, Dosing Weight 72.727, kg, PRN Other -See Comment, Start date: 08/15/17 14:30:00 CDT, Duration: 30 day, Stop date: 09/14/17 14:29:00 CDT Inactive 08/15/2017 [facility] [place] [facility] Prochlorperazine Notes: (Same as: Compazine) No Longer Active 08/15/2017 [facility] Simethicone Notes: (Same as: Neno ylicon) No Longer Active 08/15/2017 [facility] ondansetron (ANES) Route: IV, Drug form: INJ, ONCE, Stop date: 08/15/17 14:21:00 CDT Inactive 08/15/2017 [facility] [place] [facility] dexamethasone (ANES) Route: IV , Drug form: INJ, ONCE, Stop date: 08/15/17 12:56:00 CDT Inactive 08/15/2017 [facility] [place] [facility] rocuronium (ANES) Route: IV, D rug form: INJ, ONCE, Stop date: 08/15/17 12:56:00 CDT Inactive 08/15/2017 [facility] [place] [facility] propofol (ANES) Route: IV, Arie g form: INJ, ONCE, Stop date: 08/15/17 12:56:00 CDT Inactive 08/15/2017 [facility] [place] [facility] fentaNYL (ANES) Route: IV, Arie g form: INJ, ONCE, Stop date: 08/15/17 12:56:00 CDT Inactive 08/15/2017 [facility] [facility] glycopyrrolate (ANES) Route: I V, Drug form: INJ, ONCE, Stop date: 08/15/17 12:51:00 CDT Inactive 08/15/2017 [facility] lidocaine (ANES) Route: IV, Dr ug form: INJ, ONCE, Stop date: 08/15/17 12:50:00 CDT Inactive 08/15/2017 [facility] [place] [facility] phenylephrine (ANES) Route: IV , Drug form: INJ, ONCE, Stop date: 08/15/17 12:46:00 CDT Inactive 08/15/2017 [facility] [place] [facility] ePHEDrine (ANES) Route: IV, Dr ug form: INJ, ONCE, Stop date: 08/15/17 12:46:00 CDT Inactive 08/15/2017 [facility] famotidine (ANES) Route: IV, D rug form: INJ, ONCE, Stop date: 08/15/17 12:46:00 CDT Inactive 08/15/2017 [facility] [place] [facility] metroNIDAZOLE (ANES) Route: IV , Drug form: INJ, ONCE, Stop date: 08/15/17 12:41:00 CDT Inactive 08/15/2017 [facility] [place] [facility] ceFAZolin (ANES) Route: IV, Dr ug form: INJ, ONCE, Stop date: 08/15/17 12:40:00 CDT Inactive 08/15/2017 [facility] [place] [facility] Acetaminophen Notes: Infuse ov er 15 minutes Do not exceed 4gm/day of acetaminophen MEDICATION WASTE Product Size: 1000 mg Product Wasted: ___ mg Inactive 08/15/2017 [facility] [place] [facility] celecoxib Notes: NSAID. Please check indication. Not for seizure. (Same As: CeleBREX) No Longer Active 08/15/2017 [facility] [place] [facility] gabapentin Notes: (Same as: Ne urontin) No Longer Active 08/15/2017 [facility] Tramadol Notes: Not to exceed 400mg/day. (Same As: Ultram) No Longer Active 08/15/2017 [facility] Sodium Chloride 0.9% IV (ANES) 1000 mL Route: IV, Total Volume: 1,000, Start date: 08/15/17 11:30:00 CDT, Stop date: 08/15/17 12:30:00 CDT Inactive 08/15/2017 [facility] Lactated Ringers Injection IV (ANES) 1000 mL Route: IV, Total Volume: 1,000, Start date: 08/15/17 11:10:00 CDT, Stop date: 08/15/17 12:10:00 CDT Inactive 08/15/2017 [facility] meloxicam PO, Daily, 0 Refill( s) No Longer Active 08/15/2017 [facility] pantoprazole 40 mg, PO, Daily, # 30 tab, 0 Refill(s) Active 08/15/2017 [facility] Flagyl Notes: (Same as: Flagyl ) Avoid alcohol. No Longer Active 08/14/2017 [facility] remove patch Notes: Remove old patch before application of new patch. No Longer Active 08/14/2017 [facility] CeleBREX Notes: NSAID. Please check indication. Not for seizure. (Same As: CeleBREX) N o Longer Active 08/14/2017 [facility] [place] [facility] Neurontin Notes: (Same as: Nima rontin) No Longer Active 08/14/2017 [facility] ceFAZolin + sterile water 20 mL Notes: (Same As: Maury Samuelszol) MEDICATION WASTE Product Size: 1000 mg Product Wasted: ___ mg No Longer Active 08/14/2017 [facility] scopolamine Notes: Change patc h every 72 hours (Same as: Transderm-Scop) No Longer Active 08/14/2017 [facility] [place] [facility] heparin Notes: porcine heparin No Longer Active 08/14/2017 [facility] Omeprazole 40 mg, PO, Daily No Longer Active 08/05/2017 [facility] ibuprofen 800 mg oral tablet 8 00 mg = 1 tab, PO, Q8H, PRN Pain, Take with food, # 90 tab, 0 Refill(s), [id number] Active 01/11/2017 [facility] enoxaparin 40 mg/0.4 mL subcutaneous solution 40 mg = 0.4 mL, SUB-Q, [id number], # 28 syr, 0 Refill(s), Pharmacy: [facility]/pharmacy #[id number] Active 01/11/2017 [facility] tramadol hydrochloride 50 MG Oral Tablet See Instructions, PRN Pain Score 4-6, 1-2 tab PO Q6H, # 30 tab, 0 Refill(s) Active 01/11/2017 [facility] senna 8.6 mg oral tablet 17.2 mg = 2 tab, PO, BID, # 36 tab, 0 Refill(s), Pharmacy: [facility]/pharmacy #[id number] Active 01/11/2017 [facility] [facility] Lovenox Notes: (Same as: Loven ox) Inactive 01/11/2017 [facility] Streptococcus pneumoniae serotype 1 caps ular antigen diphtheria [id number] protein conjugate vaccine / Streptococcus pneumoniae serotype 14 capsular antigen diphtheria [id number] protein conjugate vaccine / Streptococcus pneumoniae serotype 18C capsular antigen d Notes: Shake well prior to use (Same as: Prevnar 13) Inactive 01/11/2017 [facility] influenza virus vaccine, inactivated Notes: (Same as: Fluzone Quadrivalent, Fluarix Quadrivalent) For 3 years of age and older (0.5 mL IM) Shake well before use Inactive 01/11/2017 [facility] [place] [facility] Tramadol 100 mg, 2 tab, Route: PO, Drug form: TAB, Q6H, Dosing Weight 71.818, kg, PRN Pain Score 7-10, Start date: 01/10/17 22:53:00 M[employer]IMEDIA AUTHORING SPECIALIST, Duration: 30 day, Stop date: 02/09/17 22:52:00 MULTIM[employer]IA AUTHORING SPECIALIST No Longer Active 01/11/2017 [facility] acetaminophen 1,000 mg, 2 tab, Route: PO, Drug form: TAB, Q6H, Dosing Weight 71.818, kg, Start date: 01/10/17 17:00:00 MULTIMEDIA AUTHORING SPECIALIST, Duration: 30 day, Stop date: 02/09/17 11:00:00 MULTIMEDIA AUTHORING SPECIALIST No Longer Active 01/10/2017 [facility] [place] [facility] Celebrex 200 mg, 1 cap, Route: PO, Drug form: CAP, BID, Dosing Weight 71.818, kg, Start date: 01/10/17 17:00:00 MULTIMEDIA AUTHORING SPECIALIST, Duration: 30 day, Stop date: 02/09/17 9:00:00 MULTIMEDIA AUTHORING SPECIALIST No Longer Active 01/10/2017 [facility] [place] [facility] Zofran Notes: (Same as: Zofran) No Longer Active 01/10/2017 [facility] Neurontin Notes: (Same as: Nima rontin) No Longer Active 01/10/2017 [facility] sennosides, [facility] Notes: (Same a s: Senokot) No Longer Active 01/10/2017 [facility] Ondansetron Notes: (Same as: Cristy lópez) MEDICATION WASTE Product Size: 4 mg Product Wasted: ___ mg Inactive 01/10/2017 [facility] Zofran Notes: (Same as: Zofran) Inactive 01/10/2017 [facility] gabapentin Notes: (Same as: Ne urontin) Inactive 01/10/2017 [facility] Enoxaparin 40 mg, Route: SUB-Q , Drug form: INJ, [id number], Dosing Weight 71.818, kg, Start date: 01/10/17 13:00:00 MULTIMEDIA AUTHORING SPECIALIST, Stop date: 02/08/17 13:00:00 MULTIMEDIA AUTHORING SPECIALIST Inactive 01/10/2017 [facility] [place] [facility] Simethicone Notes: (Same as: M ylicon) No Longer Active 01/10/2017 [facility] Reglan Notes: (Same as: Reglan) No Longer Active 01/10/2017 [facility] D5LR 1,000 mL 1,000 mL, Rate: 75 ml/hr, Infuse over: 13.3 hr, Route: IV, Dosing Weight 71.818 kg, Total Volume: 1,000, Start date: 01/10/17 12:39:00 MULTIMEDIA AUTHORING SPECIALIST, Duration: 30 day, Stop date: 02/09/17 12:38:00 MULTIM[employer]IA AUTHORING SPECIALIST, 1.76, m2 No Longer Active 01/10/2017 [facility] Ondansetron 4 mg, Route: IV, Q 6H, Dosing Weight 71.818, kg, Start date: 01/10/17 12:00:00 MULTIMEDIA AUTHORING SPECIALIST, Duration: 30 day, Stop date: 02/09/17 6:00:00 MULTIMEDIA AUTHORING SPECIALIST Inactive 01/10/2017 [facility] Acetaminophen 1,000 mg, 2 tab, Route: PO, Drug form: TAB, Q6H, Dosing Weight 71.818, kg, Start date: 01/10/17 12:00:00 MULTIMEDIA AUTHORING SPECIALIST, Duration: 30 day, Stop date: 02/09/17 6:00:00 MULTIMEDIA AUTHORING SPECIALIST Inactive 01/10/2017 [facility] Ondansetron 4 mg, Route: IVP, ONCE, Dosing Weight 71.818, kg, PRN Nausea & Vomiting, Start date: 01/10/17 11:59:00 MULTIMEDIA AUTHORING SPECIALIST Inactive 01/10/2017 [facility] Hydromorphone 0.5 mg, Route: I [employer], Q5Min, Dosing Weight 71.818, kg, PRN Pain Score 7-10, Start date: 01/10/17 11:59:00 MULTIM[employer] AUTHORING SPECIALIST, Duration: 4 doses or times, Stop date: Limited # of times Inactive 01/10/2017 [facility] Fentanyl 50 microgram, Route: IVP, Q5Min, Dosing Weight 71.818, kg, PRN Pain Score 7-10, Priority: Routine, Start date: 01/10/17 11:59:00 MULTIM[employer] AUTHORING SPECIALIST, Duration: 2 doses or times, Stop date: Limited # of times Inactive 01/10/2017 [facility] Naloxone 0.4 mg, Route: IVP, Q 2MIN, Dosing Weight 71.818, kg, PRN Narcotic Reversal, Start date: 01/10/17 11:59:00 MULTIMEDIA AUTHORING SPECIALIST, Duration: 8 doses or times, Stop date: Limited # of times Inactive 01/10/2017 [facility] Flumazenil 0.2 mg, Route: IVP, PRN, Dosing Weight 71.818, kg, PRN Benzodiazepine Reversal, Initial dose, Start date: 01/10/17 11:59:00 MULTIMEDIA AUTHORING SPECIALIST, Duration: 30 day, Stop date: 02/09/17 11:58:00 MULTIMEDIA AUTHORING SPECIALIST Inactive 01/10/2017 [facility] Oxycodone 5 mg, Route: PO, Arie g form: TAB, Q4H, Dosing Weight 71.818, kg, PRN Pain Score 4-6, Start date: 01/10/17 11:59:00 MULTIMEDIA AUTHORING SPECIALIST, Duration: 30 day, Stop date: 02/09/17 11:58:00 MULTIMEDIA AUTHORING SPECIALIST Inactive 01/10/2017 [facility] Tramadol 50 mg, 1 tab, Route: PO, Drug form: TAB, Q6H, Dosing Weight 71.818, kg, PRN Pain Score 4-6, Start date: 01/10/17 9:53:00 MULTIMEDIA AUTHORING SPECIALIST, Duration: 30 day, Stop date: 02/09/17 9:52:00 MULTIMEDIA AUTHORING SPECIALIST No Longer Active 01/10/2017 [facility] Phenergan 12.5 mg, 0.5 mL, Rou te: IVPB, Drug form: INJ, Q6H, Dosing Weight 71.818, kg, PRN as needed for nausea/vomiting, Start date: 01/10/17 9:53:00 MULTIMEDIA AUTHORING SPECIALIST, Duration: 30 day, Stop date: 02/09/17 9:52:00 MULTIMEDIA AUTHORING SPECIALIST No Longer Active 01/10/2017 [facility] metoclopramide (ANES) Route: I V, Drug form: INJ, ONCE, Stop date: 01/10/17 8:58:00 MULTIMEDIA AUTHORING SPECIALIST Inactive 01/10/2017 [facility] rocuronium (ANES) Route: IV, D rug form: INJ, ONCE, Stop date: 01/10/17 8:58:00 MULTIMEDIA AUTHORING SPECIALIST Inactive 01/10/2017 [facility] propofol (ANES) Route: IV, Arie g form: INJ, ONCE, Stop date: 01/10/17 8:58:00 MULTIMEDIA AUTHORING SPECIALIST Inactive 01/10/2017 [facility] [facility] lidocaine (ANES) Route: IV, Dr ug form: INJ, ONCE, Stop date: 01/10/17 8:58:00 MULTIMEDIA AUTHORING SPECIALIST Inactive 01/10/2017 [facility] fentaNYL (ANES) Route: IV, Arie g form: INJ, ONCE, Stop date: 01/10/17 8:58:00 MULTIMEDIA AUTHORING SPECIALIST Inactive 01/10/2017 [facility] midazolam (ANES) Route: IV, Dr ug form: SOLN, ONCE, Stop date: 01/10/17 8:58:00 MULTIMEDIA AUTHORING SPECIALIST Inactive 01/10/2017 [facility] dexamethasone (ANES) Route: IV , Drug form: INJ, ONCE, Stop date: 01/10/17 8:58:00 MULTIMEDIA AUTHORING SPECIALIST Inactive 01/10/2017 [facility] famotidine (ANES) Route: IV, D rug form: INJ, ONCE, Stop date: 01/10/17 8:58:00 MULTIMEDIA AUTHORING SPECIALIST Inactive 01/10/2017 [facility] ketAMINE (ANES) Route: IV, Arie g form: INJ, ONCE, Stop date: 01/10/17 8:58:00 MULTIMEDIA AUTHORING SPECIALIST Inactive 01/10/2017 [facility] propofol (ANES) 10 mg Route: I V, Drug form: INJ, Start date: 01/10/17 8:54:00 MULTIMEDIA AUTHORING SPECIALIST, Stop date: 01/10/17 9:54:00 MULTIMEDIA AUTHORING SPECIALIST Inactive 01/10/2017 [facility] dexmedetomidine (ANES) 100 microgram Route: IV, Drug form: INJ, Start date: 01/10/17 8:54:00 MULTIMEDIA AUTHORING SPECIALIST, Stop date: 01/10/17 9:54:00 MULTIMEDIA AUTHORING SPECIALIST Inactive 01/10/2017 [facility] 72 HR Scopolamine 0.0139 MG/HR Transdermal Patch Notes: Change patch every 72 hours (Same as: Transderm-Scop) Inactive 01/10/2017 [facility] Metronidazole Notes: (Same as: Flagyl) Avoid alcohol. Inactive 01/10/2017 [facility] Cefazolin Notes: (Same As: Anc ef, Kefzol) MEDICATION WASTE Product Size: 1000 mg Product Wasted: ___ mg Inactive 01/10/2017 [facility] gabapentin 300 MG Oral Capsule Notes: (Same as: Neurontin) No Longer Active 01/10/2017 [facility] Celebrex Notes: NSAID. Please check indication. Not for seizure. (Same As: CeleBREX ) No Longer Active 01/10/2017 [facility] heparin Notes: porcine heparin No Longer Active 01/10/2017 [facility] [facility] meloxicam 15 mg oral tablet 15 mg = 1 tab, PO, Daily, PRN Pain, # 30 tab, 1 Refill(s) Active 12/07/2016 [facility] nter Omeprazole 40 mg, PO, Daily, 0 Refill(s) Active 12/07/2016 [facility] Allergies, Adverse Reactions, Alerts Substance Category Reaction Severity Reaction type Status Date Reported Comments Source No Known Medication Allergies Assertion Drug aller gy [facility] Immunizations Immunization Date Given Site Status Last Updated Comments Source pneumococcal 13-valent vaccine 08/17/2017 [facility] [place] [place] pneumococcal 13-valent vaccine 01/12/2017 [facility] [place] [place] [place] influenza virus vaccine, inactivated 01/11/2017 [facility] [place] [place] [place] Results Order Name Results Value Reference Range Date Interpretation Comments Source IMMUNOLOGY HPV Aptima Negative Negative 07/13/2019 Result Comment: This nucleic acid amplif ication test detects fourteen high-
risk HPV types (16,18,31,33,35,39,45,51,52,56,58,59,66,68)
without differentiation.
Source.............Cervix
LMP / Prev Treat...None
No. of containers..01 ThinPrep Vial
Performed At: [facility]
[address], [place] [id number]& lt;br/>Duffy MD Ph:[phone]
Performed At: [facility]
[address], [place] [id number]
Duffy MD Ph:[phone] [facility] TUMOR MARKERS CA 125 6.9 0.0 - 35.0 07/13/2019 [facility] CHEM PANEL Glucose Lvl 112 70 - 99 03/23/2019 [facility] CHEM PANEL BUN 16 7 - 22 03/23/2019 [facility] CHEM PANEL Creatinine Lvl 0.74 0.50 - 1.40 03/23/2019 [facility] CHEM PANEL Sodium Lvl 142 135 - 145 03/23/2019 [facility] CHEM PANEL Potassium Lvl 3.8 3.5 - 5.1 03/23/2019 [facility] CHEM PANEL Chloride Lvl 105 95 - 109 03/23/2019 [facility] CHEM PANEL CO2 28 24 - 32 03/23/2019 [facility] CHEM PANEL Calcium Lvl 9.1 8.5 - 10.5 03/23/2019 [facility] CHEM PANEL Total Protein 7.5 6.4 - 8.4 03/23/2019 [facility] CHEM PANEL Albumin Lvl 3.6 3.5 - 5.0 03/23/2019 [facility] CHEM PANEL ALT 52 0 - 65 03/23/2019 [facility] CHEM PANEL AST 36 0 - 37 03/23/2019 [facility] CHEM PANEL Alk Phos 96 39 - 136 03/23/2019 [facility] CHEM PANEL Bili Total 0.3 0.2 - 1.3 03/23/2019 [facility] CHEM PANEL AGAP 12.8 10.0 - 20.0 03/23/2019 [facility] CHEM PANEL B/C Ratio 22 6 - 25 03/23/2019 [facility] CHEM PANEL Globulin 3.9 2.7 - 4.2 03/23/2019 [facility] CHEM PANEL A/G Ratio 0.9 0.7 - 1.6 03/23/2019 [facility] CHEM PANEL eGFR 81 03/23/2019 Result Comment: The eGFR is calculated using the CKD-EPI formula. In most young, healthy individuals the eGFR will be >90 mL/min/1.73m2. The eGFR declines with age. An eGFR of 60-89 may be normal in some populations, particularly the elderly, for whom the CKD-EPI formula has not been extensively validated. Use of the eGFR is not recommended in the following populations:

Individuals with unstable creatinine concentrations, including patients and those with serious co-morbid conditions.

Patients with extremes in muscle mass or diet.

The data above are obtained from the National Kidney Disease Education Program (NKDEP) which additionally recommends that when the eGFR is used in patients with extremes of body mass index for purposes of drug dosing, the eGFR should be multiplied by the estimated BMI. [facility] CHEM PANEL Magnesium Lvl 2.4 1.8 - 2.4 03/23/2019 [facility] HEMATOLOGY WBC 5.1 3.7 - 10.4 03/23/2019 [facility] HEMATOLOGY RBC 4.31 4.20 - 5.40 03/23/2019 [facility] HEMATOLOGY Hgb 13.3 12.0 - 16.0 03/23/2019 [facility] HEMATOLOGY Hct 40.5 36.0 - 48.0 03/23/2019 [facility] HEMATOLOGY MCV 94.0 80.0 - 98.0 03/23/2019 [facility] HEMATOLOGY MCH 30.8 27.0 - 31.0 03/23/2019 [facility] HEMATOLOGY MCHC 32.8 32.0 - 36.0 03/23/2019 [facility] HEMATOLOGY RDW 13.7 11.5 - 14.5 03/23/2019 [facility] HEMATOLOGY Platelet 206 133 - 450 03/23/2019 [facility] HEMATOLOGY MPV 8.1 7.4 - 10.4 03/23/2019 [facility] HEMATOLOGY Segs 77.4 45.0 - 75.0 03/23/2019 [facility] HEMATOLOGY Lymphocytes 14.0 20.0 - 40.0 03/23/2019 [facility] HEMATOLOGY Monocytes 7.1 2.0 - 12.0 03/23/2019 [facility] HEMATOLOGY Eosinophils 1.0 0.0 - 4.0 03/23/2019 [facility] HEMATOLOGY Basophils 0.5 0.0 - 1.0 03/23/2019 [facility] HEMATOLOGY Neutrophils # 3.9 1.5 - 8.1 03/23/2019 [facility] HEMATOLOGY Lymphocytes # 0.7 1.0 - 5.5 03/23/2019 [facility] HEMATOLOGY Monocytes # 0.4 0.0 - 0.8 03/23/2019 [facility] TUMOR MARKERS CA 125 4.8 0.0 - 35.0 03/23/2019 [facility] TUMOR MARKERS CA 125 5.2 0.0 - 35.0 12/15/2018 [facility] ELECTROLYTES AGAP 8.8 10.0 - 20.0 09/15/2018 [facility] ELECTROLYTES B/C Ratio 22 6 - 25 09/15/2018 [facility] ELECTROLYTES Globulin 3.9 2.7 - 4.2 09/15/2018 [facility] ELECTROLYTES A/G Ratio 0.9 0.7 - 1.6 09/15/2018 [facility] ELECTROLYTES Glucose Lvl 98 70 - 99 09/15/2018 [facility] ELECTROLYTES BUN 15 7 - 22 09/15/2018 [facility] ELECTROLYTES Creatinine Lvl 0.6 8 0.50 - 1.40 09/15/2018 [facility] ELECTROLYTES Sodium Lvl 141 135 - 145 09/15/2018 [facility] ELECTROLYTES Potassium Lvl 3.8 3.5 - 5.1 09/15/2018 [facility] ELECTROLYTES Chloride Lvl 104 95 - 109 09/15/2018 [facility] ELECTROLYTES CO2 32 24 - 32 09/15/2018 [facility] ELECTROLYTES Calcium Lvl 9.1 8.5 - 10.5 09/15/2018 [facility] ELECTROLYTES eGFR 88 09/15/2018 Result Comment: The eGFR is calculated using the CKD-EPI formula. In most young, healthy individuals the eGFR will be >90 mL/min/1.73m2. The eGFR declines with age. An eGFR of 60-89 may be normal in some populations, particularly the elderly, for whom the CKD-EPI formula has not been extensively validated. Use of the eGFR is not recommended in the following populations:

Individuals with unstable creatinine concentrations, including patients and those with serious co-morbid conditions.

Patients with extremes in muscle mass or diet.

The data above are obtained from the National Kidney Disease Education Program (NKDEP) which additionally recommends that when the eGFR is used in patients with extremes of body mass index for purposes of drug dosing, the eGFR should be multiplied by the estimated BMI. [facility] ELECTROLYTES Total Protein 7.5 6.4 - 8.4 09/15/2018 [facility] ELECTROLYTES Albumin Lvl 3.6 3.5 - 5.0 09/15/2018 [facility] ELECTROLYTES ALT 27 0 - 65 09/15/2018 [facility] ELECTROLYTES AST 19 0 - 37 09/15/2018 [facility] ELECTROLYTES Alk Phos 92 39 - 136 09/15/2018 [facility] ELECTROLYTES Bili Total 0.2 0.2 - 1.3 09/15/2018 [facility] HEMATOLOGY WBC 4.9 3.7 - 10.4 09/15/2018 [facility] HEMATOLOGY RBC 4.16 4.20 - 5.40 09/15/2018 [facility] HEMATOLOGY Hgb 13.2 12.0 - 16.0 09/15/2018 [facility] HEMATOLOGY Hct 39.4 36.0 - 48.0 09/15/2018 [facility] HEMATOLOGY MCV 94.8 80.0 - 98.0 09/15/2018 [facility] HEMATOLOGY MCH 31.8 27.0 - 31.0 09/15/2018 [facility] HEMATOLOGY MCHC 33.6 32.0 - 36.0 09/15/2018 [facility] HEMATOLOGY RDW 13.3 11.5 - 14.5 09/15/2018 [facility] HEMATOLOGY Platelet 237 133 - 450 09/15/2018 [facility] HEMATOLOGY MPV 7.2 7.4 - 10.4 09/15/2018 [facility] HEMATOLOGY Segs 72.7 45.0 - 75.0 09/15/2018 [facility] HEMATOLOGY Lymphocytes 16.8 20.0 - 40.0 09/15/2018 [facility] HEMATOLOGY Monocytes 8.8 2.0 - 12.0 09/15/2018 [facility] HEMATOLOGY Eosinophils 1.3 0.0 - 4.0 09/15/2018 [facility] HEMATOLOGY Basophils 0.4 0.0 - 1.0 09/15/2018 [facility] HEMATOLOGY Neutrophils # 3.6 1.5 - 8.1 09/15/2018 [facility] HEMATOLOGY Lymphocytes # 0.8 1.0 - 5.5 09/15/2018 [facility] HEMATOLOGY Monocytes # 0.4 0.0 - 0.8 09/15/2018 [facility] HEMATOLOGY Eosinophils # 0.1 0.0 - 0.5 09/15/2018 [facility] TUMOR MARKERS CA 125 5.4 0.0 - 35.0 09/15/2018 [facility] IMMUNOLOGY HPV (High Risk) Negat haritha Negative 05/19/2018 Result Comment: This high-risk HPV test detects thirteen high- risk types
(16/18/31/33/35/39/45/51/52/56/58/59/68) without
differentiation.

Source.............Cervix
LMP / Prev Treat...None
No. of containers..01 ThinPrep Vial
Performed At: [facility]
[address], [place] [id number]
Ritter Jessica CALVERT Ph:[phone]
Performed At: [facility]
[address], [place] [id number]
Ritter Jessica CALVERT Ph:[phone] [facility] CHEM PANEL Magnesium Lvl 2.2 1.8 - 2.4 05/19/2018 [facility] CHEM PANEL eGFR 90 05/19/2018 Result Comment: The eGFR is calculated using the CKD-EPI formula. In most young, healthy individuals the eGFR will be >90 mL/min/1.73m2. The eGFR declines with age. An eGFR of 60-89 may be normal in some populations, particularly the elderly, for whom the CKD-EPI formula has not been extensively validated. Use of the eGFR is not recommended in the following populations:

Individuals with unstable creatinine concentrations, including patients and those with serious co-morbid conditions.

Patients with extremes in muscle mass or diet.

The data above are obtained from the National Kidney Disease Education Program (NKDEP) which additionally recommends that when the eGFR is used in patients with extremes of body mass index for purposes of drug dosing, the eGFR should be multiplied by the estimated BMI. [facility] CHEM PANEL B/C Ratio 19 6 - 25 05/19/2018 [facility] CHEM PANEL Calcium Lvl 8.9 8.5 - 10.5 05/19/2018 [facility] CHEM PANEL BUN 12 7 - 22 05/19/2018 [facility] CHEM PANEL Chloride Lvl 106 95 - 109 05/19/2018 [facility] CHEM PANEL Potassium Lvl 3.8 3.5 - 5.1 05/19/2018 [facility] CHEM PANEL Creatinine Lvl 0.64 0.50 - 1.40 05/19/2018 [facility] CHEM PANEL AGAP 11.8 10.0 - 20.0 05/19/2018 [facility] CHEM PANEL CO2 30 24 - 32 05/19/2018 [facility] CHEM PANEL Sodium Lvl 144 135 - 145 05/19/2018 [facility] CHEM PANEL Glucose Lvl 106 70 - 99 05/19/2018 [facility] CHEM PANEL Total Protein 7.5 6.4 - 8.4 05/19/2018 [facility] CHEM PANEL Albumin Lvl 3.7 3.5 - 5.0 05/19/2018 [facility] CHEM PANEL ALT 31 0 - 65 05/19/2018 [facility] CHEM PANEL Alk Phos 88 39 - 136 05/19/2018 [facility] CHEM PANEL AST 21 0 - 37 05/19/2018 [facility] CHEM PANEL Bili Total 0.3 0.2 - 1.3 05/19/2018 [facility] CHEM PANEL A/G Ratio 1.0 0.7 - 1.6 05/19/2018 [facility] CHEM PANEL Globulin 3.8 2.7 - 4.2 05/19/2018 [facility] HEMATOLOGY MPV 8.0 7.4 - 10.4 05/19/2018 [facility] HEMATOLOGY Platelet 208 133 - 450 05/19/2018 [facility] HEMATOLOGY RDW 14.0 11.5 - 14.5 05/19/2018 [facility] HEMATOLOGY MCHC 33.6 32.0 - 36.0 05/19/2018 [facility] HEMATOLOGY WBC 3.5 3.7 - 10.4 05/19/2018 [facility] HEMATOLOGY MCH 31.3 27.0 - 31.0 05/19/2018 [facility] HEMATOLOGY RBC 4.13 4.20 - 5.40 05/19/2018 [facility] HEMATOLOGY MCV 93.2 80.0 - 98.0 05/19/2018 [facility] HEMATOLOGY Hgb 12.9 12.0 - 16.0 05/19/2018 [facility] HEMATOLOGY Hct 38.5 36.0 - 48.0 05/19/2018 [facility] HEMATOLOGY Lymphocytes # 0.5 1.0 - 5.5 05/19/2018 [facility] HEMATOLOGY Monocytes # 0.3 0.0 - 0.8 05/19/2018 [facility] HEMATOLOGY Basophils 0.3 0.0 - 1.0 05/19/2018 [facility] HEMATOLOGY Neutrophils # 2.7 1.5 - 8.1 05/19/2018 [facility] HEMATOLOGY Eosinophils 1.1 0.0 - 4.0 05/19/2018 [facility] HEMATOLOGY Monocytes 7.7 2.0 - 12.0 05/19/2018 [facility] HEMATOLOGY Lymphocytes 14.4 20.0 - 40.0 05/19/2018 [facility] HEMATOLOGY Segs 76.5 45.0 - 75.0 05/19/2018 [facility] TUMOR MARKERS CA 125 4.6 0.0 - 35.0 05/19/2018 [facility] CHEM PANEL Magnesium Lvl 2.1 1.8 - 2.4 02/17/2018 [facility] CHEM PANEL A/G Ratio 1.0 0.7 - 1.6 02/17/2018 [facility] CHEM PANEL Globulin 3.7 2.7 - 4.2 02/17/2018 [facility] CHEM PANEL B/C Ratio 13 6 - 25 02/17/2018 [facility] CHEM PANEL AGAP 11.5 10.0 - 20.0 02/17/2018 [facility] CHEM PANEL Alk Phos 100 39 - 136 02/17/2018 [facility] CHEM PANEL Bili Total 0.1 0.2 - 1.3 02/17/2018 [facility] CHEM PANEL ALT 24 0 - 65 02/17/2018 [facility] CHEM PANEL AST 15 0 - 37 02/17/2018 [facility] CHEM PANEL Total Protein 7.3 6.4 - 8.4 02/17/2018 [facility] CHEM PANEL Albumin Lvl 3.6 3.5 - 5.0 02/17/2018 [facility] CHEM PANEL eGFR 79 02/17/2018 Result Comment: The eGFR is calculated using the CKD-EPI formula. In most young, healthy individuals the eGFR will be >90 mL/min/1.73m2. The eGFR declines with age. An eGFR of 60-89 may be normal in some populations, particularly the elderly, for whom the CKD-EPI formula has not been extensively validated. Use of the eGFR is not recommended in the following populations:

Individuals with unstable creatinine concentrations, including patients and those with serious co-morbid conditions.

Patients with extremes in muscle mass or diet.

The data above are obtained from the National Kidney Disease Education Program (NKDEP) which additionally recommends that when the eGFR is used in patients with extremes of body mass index for purposes of drug dosing, the eGFR should be multiplied by the estimated BMI. [facility] CHEM PANEL Chloride Lvl 105 95 - 109 02/17/2018 [facility] CHEM PANEL Potassium Lvl 3.5 3.5 - 5.1 02/17/2018 [facility] CHEM PANEL Sodium Lvl 143 135 - 145 02/17/2018 [facility] CHEM PANEL Creatinine Lvl 0.76 0.50 - 1.40 02/17/2018 [facility] CHEM PANEL Calcium Lvl 8.8 8.5 - 10.5 02/17/2018 [facility] CHEM PANEL CO2 30 24 - 32 02/17/2018 [facility] CHEM PANEL Glucose Lvl 103 70 - 99 02/17/2018 [facility] CHEM PANEL BUN 10 7 - 22 02/17/2018 [facility] ELECTROLYTES AGAP 11.5 10.0 - 20.0 02/17/2018 [facility] ELECTROLYTES B/C Ratio 13 6 - 25 02/17/2018 [facility] ELECTROLYTES Globulin 3.7 2.7 - 4.2 02/17/2018 [facility] ELECTROLYTES A/G Ratio 1.0 0.7 - 1.6 02/17/2018 [facility] ELECTROLYTES Glucose Lvl 103 70 - 99 02/17/2018 [facility] ELECTROLYTES BUN 10 7 - 22 02/17/2018 [facility] ELECTROLYTES Creatinine Lvl 0.7 6 0.50 - 1.40 02/17/2018 [facility] ELECTROLYTES Sodium Lvl 143 135 - 145 02/17/2018 [facility] ELECTROLYTES Potassium Lvl 3.5 3.5 - 5.1 02/17/2018 [facility] ELECTROLYTES Chloride Lvl 105 95 - 109 02/17/2018 [facility] ELECTROLYTES CO2 30 24 - 32 02/17/2018 [facility] ELECTROLYTES Calcium Lvl 8.8 8.5 - 10.5 02/17/2018 [facility] ELECTROLYTES eGFR 79 02/17/2018 Result Comment: The eGFR is calculated using the CKD-EPI formula. In most young, healthy individuals the eGFR will be >90 mL/min/1.73m2. The eGFR declines with age. An eGFR of 60-89 may be normal in some populations, particularly the elderly, for whom the CKD-EPI formula has not been extensively validated. Use of the eGFR is not recommended in the following populations:

Individuals with unstable creatinine concentrations, including patients and those with serious co-morbid conditions.

Patients with extremes in muscle mass or diet.

The data above are obtained from the National Kidney Disease Education Program (NKDEP) which additionally recommends that when the eGFR is used in patients with extremes of body mass index for purposes of drug dosing, the eGFR should be multiplied by the estimated BMI. [facility] ELECTROLYTES Total Protein 7.3 6.4 - 8.4 02/17/2018 [facility] ELECTROLYTES Albumin Lvl 3.6 3.5 - 5.0 02/17/2018 [facility] ELECTROLYTES ALT 24 0 - 65 02/17/2018 [facility] ELECTROLYTES AST 15 0 - 37 02/17/2018 [facility] ELECTROLYTES Alk Phos 100 39 - 136 02/17/2018 [facility] ELECTROLYTES Bili Total 0.1 0.2 - 1.3 02/17/2018 [facility] HEMATOLOGY WBC 4.2 3.7 - 10.4 02/17/2018 [facility] HEMATOLOGY RBC 3.81 4.20 - 5.40 02/17/2018 [facility] HEMATOLOGY Hgb 12.2 12.0 - 16.0 02/17/2018 [facility] HEMATOLOGY Hct 36.5 36.0 - 48.0 02/17/2018 [facility] HEMATOLOGY MCV 95.8 80.0 - 98.0 02/17/2018 [facility] HEMATOLOGY MCH 32.0 27.0 - 31.0 02/17/2018 [facility] HEMATOLOGY MCHC 33.4 32.0 - 36.0 02/17/2018 [facility] HEMATOLOGY RDW 13.8 11.5 - 14.5 02/17/2018 [facility] HEMATOLOGY Platelet 213 133 - 450 02/17/2018 [facility] HEMATOLOGY MPV 7.5 7.4 - 10.4 02/17/2018 [facility] HEMATOLOGY Segs 77.1 45.0 - 75.0 02/17/2018 [facility] HEMATOLOGY Lymphocytes 11.8 20.0 - 40.0 02/17/2018 [facility] HEMATOLOGY Monocytes 9.3 2.0 - 12.0 02/17/2018 [facility] HEMATOLOGY Eosinophils 1.4 0.0 - 4.0 02/17/2018 [facility] HEMATOLOGY Basophils 0.4 0.0 - 1.0 02/17/2018 [facility] HEMATOLOGY Neutrophils # 3.3 1.5 - 8.1 02/17/2018 [facility] HEMATOLOGY Lymphocytes # 0.5 1.0 - 5.5 02/17/2018 [facility] HEMATOLOGY Monocytes # 0.4 0.0 - 0.8 02/17/2018 [facility] HEMATOLOGY Eosinophils # 0.1 0.0 - 0.5 02/17/2018 [facility] TUMOR MARKERS CA 125 5.1 0.0 - 35.0 02/17/2018 [facility] URINE AND STOOL UA Color Yellow *NA* (02/17/18 3:06 PM) Yellow 02/17/2018 [facility] URINE AND STOOL UA Turbidity Clear (02/17/18 3:06 PM) Clear 02/17/2018 [facility] URINE AND STOOL UA Spec Grav 1.015 <=1.030 02/17/2018 [facility] URINE AND STOOL UA pH 7.5 5.0 - 8.0 02/17/2018 [facility] URINE AND STOOL UA Protein Negative (02/17/18 3:06 PM) Negative 02/17/2018 [facility] URINE AND STOOL UA Glucose Negative (02/17/18 3:06 PM) Negative 02/17/2018 [facility] URINE AND STOOL UA Ketones Negative *NA* (02/17/18 3:06 PM) Negative 02/17/2018 [facility] URINE AND STOOL UA Bili Negative *NA* (02/17/18 3:06 PM) Negative 02/17/2018 [facility] URINE AND STOOL UA Blood Negative (02/17/18 3:06 PM) Negative 02/17/2018 [facility] [facility] URINE AND STOOL UA Urobilinogen 0.2 0.1 - 1.0 02/17/2018 [facility] URINE AND STOOL UA Nitrite Negative (02/17/18 3:06 PM) Negative 02/17/2018 [facility] URINE AND STOOL UA Leuk Est Trace *ABN* (02/17/18 3:06 PM) Negative 02/17/2018 [facility] URINE AND STOOL UA Sq Epi Occasional /LPF Few /LPF 02/17/2018 [facility] URINE AND STOOL UA WBC 3-5 /HPF None Seen /HPF 02/17/2018 [facility] URINE AND STOOL UA RBC None Seen (02/17/18 3:06 PM) 0 - 2 02/17/2018 [facility] URINE AND STOOL UA Bacteria None Seen (02/17/18 3:06 PM) None Seen 02/17/2018 [facility] URINE AND STOOL UA Mucus Few /LPF None Seen /LPF 02/17/2018 [facility] CHEM PANEL Magnesium Lvl 2.1 1.8 - 2.4 11/11/2017 [facility] CHEM PANEL A/G Ratio 0.9 0.7 - 1.6 11/11/2017 [facility] CHEM PANEL Globulin 3.7 2.7 - 4.2 11/11/2017 [facility] CHEM PANEL AGAP 8.9 10.0 - 20.0 11/11/2017 [facility] CHEM PANEL B/C Ratio 8 6 - 25 11/11/2017 [facility] CHEM PANEL ALT 51 0 - 65 11/11/2017 [facility] CHEM PANEL AST 32 0 - 37 11/11/2017 [facility] CHEM PANEL Alk Phos 84 39 - 136 11/11/2017 [facility] CHEM PANEL Bili Total 0.2 0.2 - 1.3 11/11/2017 [facility] CHEM PANEL Total Protein 6.9 6.4 - 8.4 11/11/2017 [facility] CHEM PANEL Albumin Lvl 3.2 3.5 - 5.0 11/11/2017 [facility] CHEM PANEL eGFR 91 11/11/2017 Result Comment: The eGFR is calculated using the CKD-EPI formula. In most young, healthy individuals the eGFR will be >90 mL/min/1.73m2. The eGFR declines with age. An eGFR of 60-89 may be normal in some populations, particularly the elderly, for whom the CKD-EPI formula has not been extensively validated. Use of the eGFR is not recommended in the following populations:

Individuals with unstable creatinine concentrations, including patients and those with serious co-morbid conditions.

Patients with extremes in muscle mass or diet.

The data above are obtained from the National Kidney Disease Education Program (NKDEP) which additionally recommends that when the eGFR is used in patients with extremes of body mass index for purposes of drug dosing, the eGFR should be multiplied by the estimated BMI. [facility] CHEM PANEL Calcium Lvl 8.5 8.5 - 10.5 11/11/2017 [facility] CHEM PANEL CO2 31 24 - 32 11/11/2017 [facility] CHEM PANEL Chloride Lvl 103 95 - 109 11/11/2017 [facility] CHEM PANEL Potassium Lvl 3.9 3.5 - 5.1 11/11/2017 [facility] CHEM PANEL Sodium Lvl 139 135 - 145 11/11/2017 [facility] CHEM PANEL Creatinine Lvl 0.62 0.50 - 1.40 11/11/2017 [facility] CHEM PANEL Glucose Lvl 126 70 - 99 11/11/2017 [facility] CHEM PANEL BUN 5 7 - 22 11/11/2017 [facility] HEMATOLOGY RBC 3.25 4.20 - 5.40 11/11/2017 [facility] HEMATOLOGY Hgb 10.1 12.0 - 16.0 11/11/2017 [facility] HEMATOLOGY MPV 7.4 7.4 - 10.4 11/11/2017 [facility] HEMATOLOGY WBC 2.0 3.7 - 10.4 11/11/2017 [facility] HEMATOLOGY MCV 92.4 80.0 - 98.0 11/11/2017 [facility] HEMATOLOGY Hct 30.1 36.0 - 48.0 11/11/2017 [facility] HEMATOLOGY MCHC 33.6 32.0 - 36.0 11/11/2017 [facility] HEMATOLOGY MCH 31.0 27.0 - 31.0 11/11/2017 [facility] HEMATOLOGY RDW 18.0 11.5 - 14.5 11/11/2017 [facility] HEMATOLOGY Platelet 205 133 - 450 11/11/2017 [facility] HEMATOLOGY Lymphocytes 23.2 20.0 - 40.0 11/11/2017 [facility] HEMATOLOGY Monocytes 19.8 2.0 - 12.0 11/11/2017 [facility] HEMATOLOGY Basophils 0.6 0.0 - 1.0 11/11/2017 [facility] HEMATOLOGY Eosinophils 0.4 0.0 - 4.0 11/11/2017 [facility] HEMATOLOGY Neutrophils # 1.1 1.5 - 8.1 11/11/2017 [facility] HEMATOLOGY Lymphocytes # 0.5 1.0 - 5.5 11/11/2017 [facility] HEMATOLOGY Monocytes # 0.4 0.0 - 0.8 11/11/2017 [facility] HEMATOLOGY Segs 56.0 45.0 - 75.0 11/11/2017 [facility] CHEM PANEL Magnesium Lvl 2.3 1.8 - 2.4 10/21/2017 [facility] CHEM PANEL B/C Ratio 18 6 - 25 10/21/2017 [facility] CHEM PANEL AGAP 12.9 10.0 - 20.0 10/21/2017 [facility] CHEM PANEL A/G Ratio 0.9 0.7 - 1.6 10/21/2017 [facility] CHEM PANEL Globulin 3.8 2.7 - 4.2 10/21/2017 [facility] CHEM PANEL eGFR 92 10/21/2017 Result Comment: The eGFR is calculated using the CKD-EPI formula. In most young, healthy individuals the eGFR will be >90 mL/min/1.73m2. The eGFR declines with age. An eGFR of 60-89 may be normal in some populations, particularly the elderly, for whom the CKD-EPI formula has not been extensively validated. Use of the eGFR is not recommended in the following populations:

Individuals with unstable creatinine concentrations, including patients and those with serious co-morbid conditions.

Patients with extremes in muscle mass or diet.

The data above are obtained from the National Kidney Disease Education Program (NKDEP) which additionally recommends that when the eGFR is used in patients with extremes of body mass index for purposes of drug dosing, the eGFR should be multiplied by the estimated BMI. [facility] CHEM PANEL Creatinine Lvl 0.61 0.50 - 1.40 10/21/2017 [facility] CHEM PANEL BUN 11 7 - 22 10/21/2017 [facility] CHEM PANEL Potassium Lvl 3.9 3.5 - 5.1 10/21/2017 [facility] CHEM PANEL Glucose Lvl 103 70 - 99 10/21/2017 [facility] CHEM PANEL CO2 27 24 - 32 10/21/2017 [facility] CHEM PANEL Sodium Lvl 138 135 - 145 10/21/2017 [facility] CHEM PANEL Chloride Lvl 102 95 - 109 10/21/2017 [facility] CHEM PANEL Calcium Lvl 8.8 8.5 - 10.5 10/21/2017 [facility] CHEM PANEL Alk Phos 95 39 - 136 10/21/2017 [facility] CHEM PANEL Bili Total 0.3 0.2 - 1.3 10/21/2017 [facility] CHEM PANEL ALT 210 0 - 65 10/21/2017 [facility] CHEM PANEL Albumin Lvl 3.3 3.5 - 5.0 10/21/2017 [facility] CHEM PANEL AST 88 0 - 37 10/21/2017 [facility] CHEM PANEL Total Protein 7.1 6.4 - 8.4 10/21/2017 [facility] HEMATOLOGY Hct 34.5 36.0 - 48.0 10/21/2017 [facility] HEMATOLOGY Hgb 11.6 12.0 - 16.0 10/21/2017 [facility] HEMATOLOGY Platelet 113 133 - 450 10/21/2017 [facility] HEMATOLOGY MPV 7.5 7.4 - 10.4 10/21/2017 [facility] HEMATOLOGY RDW 14.1 11.5 - 14.5 10/21/2017 [facility] HEMATOLOGY WBC 2.4 3.7 - 10.4 10/21/2017 [facility] HEMATOLOGY RBC 3.79 4.20 - 5.40 10/21/2017 [facility] HEMATOLOGY MCHC 33.7 32.0 - 36.0 10/21/2017 [facility] HEMATOLOGY MCV 91.1 80.0 - 98.0 10/21/2017 [facility] HEMATOLOGY MCH 30.7 27.0 - 31.0 10/21/2017 [facility] HEMATOLOGY Lymphocytes # 0.3 1.0 - 5.5 10/21/2017 [facility] HEMATOLOGY Monocytes 7.9 2.0 - 12.0 10/21/2017 [facility] HEMATOLOGY Neutrophils # 1.9 1.5 - 8.1 10/21/2017 [facility] HEMATOLOGY Basophils 0.4 0.0 - 1.0 10/21/2017 [facility] HEMATOLOGY Eosinophils 0.3 0.0 - 4.0 10/21/2017 [facility] HEMATOLOGY Segs 80.2 45.0 - 75.0 10/21/2017 [facility] HEMATOLOGY Lymphocytes 11.2 20.0 - 40.0 10/21/2017 [facility] HEMATOLOGY Monocytes # 0.2 0.0 - 0.8 10/21/2017 [facility] TUMOR MARKERS CA 125 7.2 0.0 - 35.0 10/21/2017 [facility] CHEM PANEL eGFR 88 10/15/2017 Result Comment: The eGFR is calculated using the CKD-EPI formula. In most young, healthy individuals the eGFR will be >90 mL/min/1.73m2. The eGFR declines with age. An eGFR of 60-89 may be normal in some populations, particularly the elderly, for whom the CKD-EPI formula has not been extensively validated. Use of the eGFR is not recommended in the following populations:

Individuals with unstable creatinine concentrations, including patients and those with serious co-morbid conditions.

Patients with extremes in muscle mass or diet.

The data above are obtained from the National Kidney Disease Education Program (NKDEP) which additionally recommends that when the eGFR is used in patients with extremes of body mass index for purposes of drug dosing, the eGFR should be multiplied by the estimated BMI. [facility] CHEM PANEL Calcium Lvl 8.3 8.5 - 10.5 10/15/2017 [facility] CHEM PANEL CO2 28 24 - 32 10/15/2017 [facility] CHEM PANEL BUN 7 7 - 22 10/15/2017 [facility] CHEM PANEL Creatinine Lvl 0.69 0.50 - 1.40 10/15/2017 [facility] CHEM PANEL Chloride Lvl 101 95 - 109 10/15/2017 [facility] CHEM PANEL Sodium Lvl 135 135 - 145 10/15/2017 [facility] CHEM PANEL Potassium Lvl 3.8 3.5 - 5.1 10/15/2017 [facility] CHEM PANEL Glucose Lvl 137 70 - 99 10/15/2017 [facility] CHEM PANEL Albumin Lvl 3.3 3.5 - 5.0 10/15/2017 [facility] CHEM PANEL Total Protein 6.9 6.4 - 8.4 10/15/2017 [facility] CHEM PANEL Bili Total 0.2 0.2 - 1.3 10/15/2017 [facility] CHEM PANEL ALT 201 0 - 65 10/15/2017 [facility] CHEM PANEL AST 83 0 - 37 10/15/2017 [facility] CHEM PANEL Alk Phos 91 39 - 136 10/15/2017 [facility] CHEM PANEL B/C Ratio 10 6 - 25 10/15/2017 [facility] CHEM PANEL AGAP 9.8 10.0 - 20.0 10/15/2017 [facility] CHEM PANEL Globulin 3.6 2.7 - 4.2 10/15/2017 [facility] CHEM PANEL A/G Ratio 0.9 0.7 - 1.6 10/15/2017 [facility] CHEM PANEL Magnesium Lvl 2.1 1.8 - 2.4 10/15/2017 [facility] HEMATOLOGY Lymphocytes # 0.3 1.0 - 5.5 10/15/2017 [facility] HEMATOLOGY Monocytes # 0.3 0.0 - 0.8 10/15/2017 [facility] HEMATOLOGY Lymphocytes 11.3 20.0 - 40.0 10/15/2017 [facility] HEMATOLOGY Monocytes 10.0 2.0 - 12.0 10/15/2017 [facility] HEMATOLOGY Eosinophils 0.8 0.0 - 4.0 10/15/2017 [facility] HEMATOLOGY Basophils 0.4 0.0 - 1.0 10/15/2017 [facility] HEMATOLOGY Neutrophils # 2.1 1.5 - 8.1 10/15/2017 [facility] HEMATOLOGY Segs 77.5 45.0 - 75.0 10/15/2017 [facility] HEMATOLOGY WBC 2.7 3.7 - 10.4 10/15/2017 [facility] HEMATOLOGY RDW 13.9 11.5 - 14.5 10/15/2017 [facility] HEMATOLOGY Platelet 165 133 - 450 10/15/2017 [facility] HEMATOLOGY MPV 7.5 7.4 - 10.4 10/15/2017 [facility] HEMATOLOGY RBC 3.68 4.20 - 5.40 10/15/2017 [facility] HEMATOLOGY Hgb 11.4 12.0 - 16.0 10/15/2017 [facility] HEMATOLOGY Hct 33.5 36.0 - 48.0 10/15/2017 [facility] HEMATOLOGY MCV 91.1 80.0 - 98.0 10/15/2017 [facility] HEMATOLOGY MCH 30.9 27.0 - 31.0 10/15/2017 [facility] HEMATOLOGY MCHC 34.0 32.0 - 36.0 10/15/2017 [facility] CHEM PANEL Magnesium Lvl 2.1 1.8 - 2.4 10/07/2017 [facility] ELECTROLYTES AGAP 12.2 10.0 - 20.0 10/07/2017 [facility] ELECTROLYTES B/C Ratio 14 6 - 25 10/07/2017 [facility] ELECTROLYTES Globulin 3.7 2.7 - 4.2 10/07/2017 [facility] ELECTROLYTES A/G Ratio 0.9 0.7 - 1.6 10/07/2017 [facility] ELECTROLYTES eGFR 86 10/07/2017 Result Comment: The eGFR is calculated using the CKD-EPI formula. In most young, healthy individuals the eGFR will be >90 mL/min/1.73m2. The eGFR declines with age. An eGFR of 60-89 may be normal in some populations, particularly the elderly, for whom the CKD-EPI formula has not been extensively validated. Use of the eGFR is not recommended in the following populations:

Individuals with unstable creatinine concentrations, including patients and those with serious co-morbid conditions.

Patients with extremes in muscle mass or diet.

The data above are obtained from the National Kidney Disease Education Program (NKDEP) which additionally recommends that when the eGFR is used in patients with extremes of body mass index for purposes of drug dosing, the eGFR should be multiplied by the estimated BMI. [facility] ELECTROLYTES Calcium Lvl 8.6 8.5 - 10.5 10/07/2017 [facility] ELECTROLYTES Potassium Lvl 4.2 3.5 - 5.1 10/07/2017 [facility] ELECTROLYTES Chloride Lvl 102 95 - 109 10/07/2017 [facility] ELECTROLYTES CO2 28 24 - 32 10/07/2017 [facility] ELECTROLYTES Sodium Lvl 138 135 - 145 10/07/2017 [facility] ELECTROLYTES Glucose Lvl 129 70 - 99 10/07/2017 [facility] ELECTROLYTES Creatinine Lvl 0.7 1 0.50 - 1.40 10/07/2017 [facility] ELECTROLYTES BUN 10 7 - 22 10/07/2017 [facility] ELECTROLYTES Alk Phos 88 39 - 136 10/07/2017 [facility] ELECTROLYTES ALT 121 0 - 65 10/07/2017 [facility] ELECTROLYTES AST 57 0 - 37 10/07/2017 [facility] ELECTROLYTES Bili Total 0.2 0.2 - 1.3 10/07/2017 [facility] ELECTROLYTES Total Protein 7.2 6.4 - 8.4 10/07/2017 [facility] ELECTROLYTES Albumin Lvl 3.5 3.5 - 5.0 10/07/2017 [facility] HEMATOLOGY MPV 8.2 7.4 - 10.4 10/07/2017 [facility] HEMATOLOGY MCV 91.1 80.0 - 98.0 10/07/2017 [facility] HEMATOLOGY MCH 30.6 27.0 - 31.0 10/07/2017 [facility] HEMATOLOGY Hct 36.6 36.0 - 48.0 10/07/2017 [facility] HEMATOLOGY Hgb 12.3 12.0 - 16.0 10/07/2017 [facility] HEMATOLOGY RBC 4.02 4.20 - 5.40 10/07/2017 [facility] HEMATOLOGY Platelet 206 133 - 450 10/07/2017 [facility] HEMATOLOGY RDW 14.0 11.5 - 14.5 10/07/2017 [facility] HEMATOLOGY MCHC 33.5 32.0 - 36.0 10/07/2017 [facility] HEMATOLOGY WBC 4.6 3.7 - 10.4 10/07/2017 [facility] HEMATOLOGY Monocytes # 0.3 0.0 - 0.8 10/07/2017 [facility] HEMATOLOGY Segs 84.1 45.0 - 75.0 10/07/2017 [facility] HEMATOLOGY Lymphocytes # 0.4 1.0 - 5.5 10/07/2017 [facility] HEMATOLOGY Neutrophils # 3.8 1.5 - 8.1 10/07/2017 [facility] HEMATOLOGY Basophils 0.4 0.0 - 1.0 10/07/2017 [facility] HEMATOLOGY Eosinophils 1.0 0.0 - 4.0 10/07/2017 [facility] HEMATOLOGY Monocytes 6.4 2.0 - 12.0 10/07/2017 [facility] HEMATOLOGY Lymphocytes 8.1 20.0 - 40.0 10/07/2017 [facility] HEMATOLOGY Eosinophils # 0.1 0.0 - 0.5 09/30/2017 [facility] TUMOR MARKERS CA 125 9.5 0.0 - 35.0 09/30/2017 [facility] HEMATOLOGY Eosinophils # 0.1 0.0 - 0.5 09/23/2017 [facility] CHEM PANEL eGFR 87 09/05/2017 Result Comment: The eGFR is calculated using the CKD-EPI formula. In most young, healthy individuals the eGFR will be >90 mL/min/1.73m2. The eGFR declines with age. An eGFR of 60-89 may be normal in some populations, particularly the elderly, for whom the CKD-EPI formula has not been extensively validated. Use of the eGFR is not recommended in the following populations:

Individuals with unstable creatinine concentrations, including patients and those with serious co-morbid conditions.

Patients with extremes in muscle mass or diet.

The data above are obtained from the National Kidney Disease Education Program (NKDEP) which additionally recommends that when the eGFR is used in patients with extremes of body mass index for purposes of drug dosing, the eGFR should be multiplied by the estimated BMI. [facility] CHEM PANEL POC Creatinine 0.7 0.5 - 1.4 09/05/2017 [facility] CHEM PANEL A/G Ratio 0.8 0.7 - 1.6 08/18/2017 [facility] CHEM PANEL Globulin 3.6 2.7 - 4.2 08/18/2017 [facility] CHEM PANEL AST 40 0 - 37 08/18/2017 [facility] CHEM PANEL ALT 37 0 - 65 08/18/2017 [facility] CHEM PANEL B/C Ratio 10 6 - 25 08/18/2017 [facility] CHEM PANEL eGFR 89 08/18/2017 Result Comment: The eGFR is calculated using the CKD-EPI formula. In most young, healthy individuals the eGFR will be >90 mL/min/1.73m2. The eGFR declines with age. An eGFR of 60-89 may be normal in some populations, particularly the elderly, for whom the CKD-EPI formula has not been extensively validated. Use of the eGFR is not recommended in the following populations:

Individuals with unstable creatinine concentrations, including patients and those with serious co-morbid conditions.

Patients with extremes in muscle mass or diet.

The data above are obtained from the National Kidney Disease Education Program (NKDEP) which additionally recommends that when the eGFR is used in patients with extremes of body mass index for purposes of drug dosing, the eGFR should be multiplied by the estimated BMI. [facility] CHEM PANEL Bili Total 0.4 0.2 - 1.3 08/18/2017 [facility] CHEM PANEL Albumin Lvl 2.7 3.5 - 5.0 08/18/2017 [facility] CHEM PANEL Total Protein 6.3 6.4 - 8.4 08/18/2017 [facility] CHEM PANEL Alk Phos 58 39 - 136 08/18/2017 [facility] CHEM PANEL AGAP 13.8 10.0 - 20.0 08/18/2017 [facility] CHEM PANEL Calcium Lvl 8.3 8.5 - 10.5 08/18/2017 [facility] CHEM PANEL Potassium Lvl 3.8 3.5 - 5.1 08/18/2017 [facility] CHEM PANEL Chloride Lvl 110 95 - 109 08/18/2017 [facility] CHEM PANEL CO2 25 24 - 32 08/18/2017 [facility] CHEM PANEL BUN 7 7 - 22 08/18/2017 [facility] CHEM PANEL Creatinine Lvl 0.67 0.50 - 1.40 08/18/2017 [facility] CHEM PANEL Sodium Lvl 145 135 - 145 08/18/2017 [facility] CHEM PANEL Glucose Lvl 98 70 - 99 08/18/2017 [facility] CHEM PANEL Phosphorus 2.7 2.5 - 4.5 08/18/2017 [facility] CHEM PANEL Magnesium Lvl 2.5 1.8 - 2.4 08/18/2017 [facility] HEMATOLOGY MPV 8.3 7.4 - 10.4 08/18/2017 [facility] HEMATOLOGY RDW 13.4 11.5 - 14.5 08/18/2017 [facility] HEMATOLOGY MCHC 33.8 32.0 - 36.0 08/18/2017 [facility] HEMATOLOGY MCH 32.0 27.0 - 31.0 08/18/2017 [facility] HEMATOLOGY MCV 94.9 80.0 - 98.0 08/18/2017 [facility] HEMATOLOGY Hct 30.1 36.0 - 48.0 08/18/2017 [facility] HEMATOLOGY Platelet 176 133 - 450 08/18/2017 [facility] HEMATOLOGY Hgb 10.2 12.0 - 16.0 08/18/2017 [facility] HEMATOLOGY RBC 3.17 4.20 - 5.40 08/18/2017 [facility] HEMATOLOGY WBC 6.0 3.7 - 10.4 08/18/2017 [facility] HEMATOLOGY Segs 78.1 45.0 - 75.0 08/18/2017 [facility] HEMATOLOGY Lymphocytes 15.7 20.0 - 40.0 08/18/2017 [facility] HEMATOLOGY Eosinophils # 0.1 0.0 - 0.5 08/18/2017 [facility] HEMATOLOGY Monocytes # 0.2 0.0 - 0.8 08/18/2017 [facility] HEMATOLOGY Eosinophils 1.9 0.0 - 4.0 08/18/2017 [facility] HEMATOLOGY Lymphocytes # 0.9 1.0 - 5.5 08/18/2017 [facility] HEMATOLOGY Segs-Bands # 4.7 1.5 - 8.1 08/18/2017 [facility] [facility] HEMATOLOGY Basophils 0.3 0.0 - 1.0 08/18/2017 [facility] HEMATOLOGY Monocytes 4.0 2.0 - 12.0 08/18/2017 [facility] CHEM PANEL eGFR 69 08/17/2017 Result Comment: The eGFR is calculated using the CKD-EPI formula. In most young, healthy individuals the eGFR will be >90 mL/min/1.73m2. The eGFR declines with age. An eGFR of 60-89 may be normal in some populations, particularly the elderly, for whom the CKD-EPI formula has not been extensively validated. Use of the eGFR is not recommended in the following populations:

Individuals with unstable creatinine concentrations, including patients and those with serious co-morbid conditions.

Patients with extremes in muscle mass or diet.

The data above are obtained from the National Kidney Disease Education Program (NKDEP) which additionally recommends that when the eGFR is used in patients with extremes of body mass index for purposes of drug dosing, the eGFR should be multiplied by the estimated BMI. [facility] CHEM PANEL Creatinine Lvl 0.86 0.50 - 1.40 08/17/2017 [facility] CHEM PANEL BUN 16 7 - 22 08/17/2017 [facility] CHEM PANEL Potassium Lvl 3.6 3.5 - 5.1 08/17/2017 [facility] CHEM PANEL Sodium Lvl 132 135 - 145 08/17/2017 [facility] CHEM PANEL Glucose Lvl 117 70 - 99 08/17/2017 [facility] CHEM PANEL Calcium Lvl 8.1 8.5 - 10.5 08/17/2017 [facility] CHEM PANEL CO2 24 24 - 32 08/17/2017 [facility] CHEM PANEL Albumin Lvl 3.3 3.5 - 5.0 08/17/2017 [facility] CHEM PANEL Total Protein 6.7 6.4 - 8.4 08/17/2017 [facility] CHEM PANEL Chloride Lvl 99 95 - 109 08/17/2017 [facility] CHEM PANEL Alk Phos 71 39 - 136 08/17/2017 [facility] CHEM PANEL AST 49 0 - 37 08/17/2017 [facility] CHEM PANEL Bili Total 0.7 0.2 - 1.3 08/17/2017 [facility] CHEM PANEL ALT 48 0 - 65 08/17/2017 [facility] CHEM PANEL A/G Ratio 1.0 0.7 - 1.6 08/17/2017 [facility] CHEM PANEL AGAP 12.6 10.0 - 20.0 08/17/2017 [facility] CHEM PANEL Globulin 3.4 2.7 - 4.2 08/17/2017 [facility] CHEM PANEL B/C Ratio 19 6 - 25 08/17/2017 [facility] HEMATOLOGY Basophils 0.2 0.0 - 1.0 08/17/2017 [facility] HEMATOLOGY Segs-Bands # 7.8 1.5 - 8.1 08/17/2017 [facility] HEMATOLOGY Lymphocytes # 1.4 1.0 - 5.5 08/17/2017 [facility] HEMATOLOGY Eosinophils 0.5 0.0 - 4.0 08/17/2017 [facility] HEMATOLOGY Monocytes # 0.3 0.0 - 0.8 08/17/2017 [facility] HEMATOLOGY Lymphocytes 14.5 20.0 - 40.0 08/17/2017 [facility] HEMATOLOGY Monocytes 3.6 2.0 - 12.0 08/17/2017 [facility] HEMATOLOGY Segs 81.2 45.0 - 75.0 08/17/2017 [facility] HEMATOLOGY Platelet 181 133 - 450 08/17/2017 [facility] HEMATOLOGY MPV 8.7 7.4 - 10.4 08/17/2017 [facility] HEMATOLOGY MCH 32.4 27.0 - 31.0 08/17/2017 [facility] HEMATOLOGY RDW 13.3 11.5 - 14.5 08/17/2017 [facility] HEMATOLOGY Hct 30.5 36.0 - 48.0 08/17/2017 [facility] HEMATOLOGY MCV 93.9 80.0 - 98.0 08/17/2017 [facility] HEMATOLOGY MCHC 34.5 32.0 - 36.0 08/17/2017 [facility] HEMATOLOGY RBC 3.24 4.20 - 5.40 08/17/2017 [facility] HEMATOLOGY WBC 9.6 3.7 - 10.4 08/17/2017 [facility] HEMATOLOGY Hgb 10.5 12.0 - 16.0 08/17/2017 [facility] CHEM PANEL Phosphorus 2.9 2.5 - 4.5 08/16/2017 [facility] CHEM PANEL Magnesium Lvl 2.0 1.8 - 2.4 08/16/2017 [facility] CHEM PANEL eGFR 83 08/16/2017 Result Comment: The eGFR is calculated using the CKD-EPI formula. In most young, healthy individuals the eGFR will be >90 mL/min/1.73m2. The eGFR declines with age. An eGFR of 60-89 may be normal in some populations, particularly the elderly, for whom the CKD-EPI formula has not been extensively validated. Use of the eGFR is not recommended in the following populations:

Individuals with unstable creatinine concentrations, including patients and those with serious co-morbid conditions.

Patients with extremes in muscle mass or diet.

The data above are obtained from the National Kidney Disease Education Program (NKDEP) which additionally recommends that when the eGFR is used in patients with extremes of body mass index for purposes of drug dosing, the eGFR should be multiplied by the estimated BMI. [facility] CHEM PANEL A/G Ratio 1.4 0.7 - 1.6 08/16/2017 [facility] CHEM PANEL Globulin 2.7 2.7 - 4.2 08/16/2017 [facility] CHEM PANEL Total Protein 6.4 6.4 - 8.4 08/16/2017 [facility] CHEM PANEL Calcium Lvl 8.0 8.5 - 10.5 08/16/2017 [facility] CHEM PANEL Sodium Lvl 139 135 - 145 08/16/2017 [facility] CHEM PANEL Chloride Lvl 106 95 - 109 08/16/2017 [facility] CHEM PANEL Potassium Lvl 4.4 3.5 - 5.1 08/16/2017 [facility] CHEM PANEL CO2 23 24 - 32 08/16/2017 [facility] CHEM PANEL AST 59 0 - 37 08/16/2017 [facility] CHEM PANEL Bili Total 0.5 0.2 - 1.3 08/16/2017 [facility] CHEM PANEL Alk Phos 61 39 - 136 08/16/2017 [facility] CHEM PANEL AGAP 14.4 10.0 - 20.0 08/16/2017 [facility] CHEM PANEL B/C Ratio 14 6 - 25 08/16/2017 [facility] CHEM PANEL Albumin Lvl 3.7 3.5 - 5.0 08/16/2017 [facility] CHEM PANEL ALT 68 0 - 65 08/16/2017 [facility] CHEM PANEL Creatinine Lvl 0.73 0.50 - 1.40 08/16/2017 [facility] CHEM PANEL Glucose Lvl 126 70 - 99 08/16/2017 [facility] CHEM PANEL BUN 10 7 - 22 08/16/2017 [facility] HEMATOLOGY Monocytes # 0.5 0.0 - 0.8 08/16/2017 [facility] HEMATOLOGY Lymphocytes # 0.5 1.0 - 5.5 08/16/2017 [facility] HEMATOLOGY Monocytes 5.1 2.0 - 12.0 08/16/2017 [facility] HEMATOLOGY Segs-Bands # 7.9 1.5 - 8.1 08/16/2017 [facility] HEMATOLOGY Basophils 0.1 0.0 - 1.0 08/16/2017 [facility] HEMATOLOGY Eosinophils 0.1 0.0 - 4.0 08/16/2017 [facility] HEMATOLOGY Lymphocytes 5.8 20.0 - 40.0 08/16/2017 [facility] HEMATOLOGY Segs 88.9 45.0 - 75.0 08/16/2017 [facility] HEMATOLOGY RDW 13.3 11.5 - 14.5 08/16/2017 [facility] HEMATOLOGY MCHC 33.0 32.0 - 36.0 08/16/2017 [facility] HEMATOLOGY MCH 31.4 27.0 - 31.0 08/16/2017 [facility] HEMATOLOGY MCV 95.0 80.0 - 98.0 08/16/2017 [facility] HEMATOLOGY Hct 34.2 36.0 - 48.0 08/16/2017 [facility] HEMATOLOGY WBC 8.8 3.7 - 10.4 08/16/2017 [facility] HEMATOLOGY Hgb 11.3 12.0 - 16.0 08/16/2017 [facility] HEMATOLOGY RBC 3.60 4.20 - 5.40 08/16/2017 [facility] HEMATOLOGY Platelet 191 133 - 450 08/16/2017 [facility] HEMATOLOGY MPV 9.0 7.4 - 10.4 08/16/2017 [facility] BLOOD BANK RESULTS ABO/Rh B POS 08/15/2017 [facility] BLOOD BANK RESULTS Antibody Scrn Negative (08/15/17 9:34 AM) 08/15/2017 [facility] HEMATOLOGY Eosinophils # 0.1 0.0 - 0.5 08/05/2017 [facility] HEMATOLOGY INR 0.96 0.85 - 1.17 08/05/2017 [facility] HEMATOLOGY PTT 32.7 22.9 - 35.8 08/05/2017 [facility] HEMATOLOGY PT 12.8 12.0 - 14.7 08/05/2017 [facility] CHEM PANEL Phosphorus 3.2 2.5 - 4.5 01/11/2017 [facility] CHEM PANEL Bili Total 0.4 0.2 - 1.3 01/11/2017 [facility] CHEM PANEL Alk Phos 85 39 - 136 01/11/2017 [facility] CHEM PANEL Albumin Lvl 2.7 3.5 - 5.0 01/11/2017 [facility] CHEM PANEL Total Protein 6.3 6.4 - 8.4 01/11/2017 [facility] CHEM PANEL AST 43 0 - 37 01/11/2017 [facility] CHEM PANEL ALT 78 0 - 65 01/11/2017 [facility] CHEM PANEL eGFR 90 01/11/2017 Result Comment: The eGFR is calculated using the CKD-EPI formula. In most young, healthy individuals the eGFR will be >90 mL/min/1.73m2. The eGFR declines with age. An eGFR of 60-89 may be normal in some populations, particularly the elderly, for whom the CKD-EPI formula has not been extensively validated. Use of the eGFR is not recommended in the following populations:

Individuals with unstable creatinine concentrations, including patients and those with serious co-morbid conditions.

Patients with extremes in muscle mass or diet.

The data above are obtained from the National Kidney Disease Education Program (NKDEP) which additionally recommends that when the eGFR is used in patients with extremes of body mass index for purposes of drug dosing, the eGFR should be multiplied by the estimated BMI. [facility] CHEM PANEL CO2 23 24 - 32 01/11/2017 [facility] CHEM PANEL Calcium Lvl 8.7 8.5 - 10.5 01/11/2017 [facility] CHEM PANEL Glucose Lvl 211 70 - 99 01/11/2017 [facility] CHEM PANEL BUN 8 7 - 22 01/11/2017 [facility] CHEM PANEL Sodium Lvl 141 135 - 145 01/11/2017 [facility] CHEM PANEL Chloride Lvl 108 95 - 109 01/11/2017 [facility] CHEM PANEL Creatinine Lvl 0.65 0.50 - 1.40 01/11/2017 [facility] CHEM PANEL Potassium Lvl 4.3 3.5 - 5.1 01/11/2017 [facility] CHEM PANEL A/G Ratio 0.8 0.7 - 1.6 01/11/2017 [facility] CHEM PANEL AGAP 14.3 10.0 - 20.0 01/11/2017 [facility] CHEM PANEL Globulin 3.6 2.7 - 4.2 01/11/2017 [facility] CHEM PANEL B/C Ratio 12 6 - 25 01/11/2017 [facility] CHEM PANEL Magnesium Lvl 2.2 1.8 - 2.4 01/11/2017 [facility] HEMATOLOGY Monocytes # 0.7 0.0 - 0.8 01/11/2017 [facility] HEMATOLOGY Basophils 0.1 0.0 - 1.0 01/11/2017 [facility] HEMATOLOGY Monocytes 6.6 2.0 - 12.0 01/11/2017 [facility] HEMATOLOGY Lymphocytes 10.0 20.0 - 40.0 01/11/2017 [facility] HEMATOLOGY Lymphocytes # 1.0 1.0 - 5.5 01/11/2017 [facility] HEMATOLOGY Segs-Bands # 8.7 1.5 - 8.1 01/11/2017 [facility] HEMATOLOGY Segs 83.3 45.0 - 75.0 01/11/2017 [facility] HEMATOLOGY MCV 92.4 80.0 - 98.0 01/11/2017 [facility] HEMATOLOGY Hct 35.9 36.0 - 48.0 01/11/2017 [facility] HEMATOLOGY Hgb 12.1 12.0 - 16.0 01/11/2017 [facility] HEMATOLOGY MCHC 33.9 32.0 - 36.0 01/11/2017 [facility] HEMATOLOGY RBC 3.88 4.20 - 5.40 01/11/2017 [facility] HEMATOLOGY MCH 31.3 27.0 - 31.0 01/11/2017 [facility] HEMATOLOGY MPV 8.8 7.4 - 10.4 01/11/2017 [facility] HEMATOLOGY Platelet 200 133 - 450 01/11/2017 [facility] HEMATOLOGY RDW 13.4 11.5 - 14.5 01/11/2017 [facility] HEMATOLOGY WBC 10.4 3.7 - 10.4 01/11/2017 [facility] BLOOD BANK RESULTS Antibody Scrn Negative (01/10/17 7:45 AM) 01/10/2017 [facility] BLOOD BANK RESULTS ABO/Rh B POS 01/10/2017 [facility] CHEM PANEL eGFR 92 01/02/2017 Result Comment: The eGFR is calculated using the CKD-EPI formula. In most young, healthy individuals the eGFR will be >90 mL/min/1.73m2. The eGFR declines with age. An eGFR of 60-89 may be normal in some populations, particularly the elderly, for whom the CKD-EPI formula has not been extensively validated. Use of the eGFR is not recommended in the following populations:

Individuals with unstable creatinine concentrations, including patients and those with serious co-morbid conditions.

Patients with extremes in muscle mass or diet.

The data above are obtained from the National Kidney Disease Education Program (NKDEP) which additionally recommends that when the eGFR is used in patients with extremes of body mass index for purposes of drug dosing, the eGFR should be multiplied by the estimated BMI. [facility] CHEM PANEL Bili Total 0.4 0.2 - 1.3 01/02/2017 [facility] CHEM PANEL ALT 40 0 - 65 01/02/2017 [facility] CHEM PANEL AST 24 0 - 37 01/02/2017 [facility] CHEM PANEL Calcium Lvl 9.1 8.5 - 10.5 01/02/2017 [facility] CHEM PANEL Total Protein 7.7 6.4 - 8.4 01/02/2017 [facility] CHEM PANEL Alk Phos 106 39 - 136 01/02/2017 [facility] CHEM PANEL Potassium Lvl 4.9 3.5 - 5.1 01/02/2017 [facility] CHEM PANEL Chloride Lvl 106 95 - 109 01/02/2017 [facility] CHEM PANEL Albumin Lvl 4.0 3.5 - 5.0 01/02/2017 [facility] CHEM PANEL BUN 11 7 - 22 01/02/2017 [facility] CHEM PANEL CO2 30 24 - 32 01/02/2017 [facility] CHEM PANEL Sodium Lvl 144 135 - 145 01/02/2017 [facility] CHEM PANEL Creatinine Lvl 0.62 0.50 - 1.40 01/02/2017 [facility] CHEM PANEL Glucose Lvl 93 70 - 99 01/02/2017 [facility] CHEM PANEL A/G Ratio 1.1 0.7 - 1.6 01/02/2017 [facility] CHEM PANEL B/C Ratio 18 6 - 25 01/02/2017 [facility] CHEM PANEL AGAP 12.9 10.0 - 20.0 01/02/2017 [facility] CHEM PANEL Globulin 3.7 2.7 - 4.2 01/02/2017 [facility] HEMATOLOGY Basophils 0.4 0.0 - 1.0 01/02/2017 [facility] HEMATOLOGY Eosinophils 1.7 0.0 - 4.0 01/02/2017 [facility] HEMATOLOGY Monocytes # 0.4 0.0 - 0.8 01/02/2017 [facility] HEMATOLOGY Segs-Bands # 3.3 1.5 - 8.1 01/02/2017 [facility] HEMATOLOGY Lymphocytes 32.6 20.0 - 40.0 01/02/2017 [facility] HEMATOLOGY Lymphocytes # 1.8 1.0 - 5.5 01/02/2017 [facility] HEMATOLOGY Segs 58.0 45.0 - 75.0 01/02/2017 [facility] HEMATOLOGY Monocytes 7.3 2.0 - 12.0 01/02/2017 [facility] HEMATOLOGY Eosinophils # 0.1 0.0 - 0.5 01/02/2017 [facility] HEMATOLOGY Platelet 219 133 - 450 01/02/2017 [facility] HEMATOLOGY MPV 8.7 7.4 - 10.4 01/02/2017 [facility] HEMATOLOGY MCHC 32.7 32.0 - 36.0 01/02/2017 [facility] HEMATOLOGY RDW 13.4 11.5 - 14.5 01/02/2017 [facility] HEMATOLOGY WBC 5.6 3.7 - 10.4 01/02/2017 [facility] HEMATOLOGY RBC 4.73 4.20 - 5.40 01/02/2017 [facility] HEMATOLOGY MCV 93.1 80.0 - 98.0 01/02/2017 [facility] HEMATOLOGY Hct 44.0 36.0 - 48.0 01/02/2017 [facility] HEMATOLOGY MCH 30.5 27.0 - 31.0 01/02/2017 [facility] HEMATOLOGY Hgb 14.4 12.0 - 16.0 01/02/2017 [facility] Pathology Reports No Data Provided for This Section Diagnostic Reports Report Value Date Source Chest w contrast CT EXAM: CT CHEST WITH CONTRAST DATE: 04/03/2019 10:51 [employer] INDICATION: - endometrial cancer TECHNIQUE: Volumetric CT acquisition of the chest, following intravenous contrast. Axial, sagittal and coronal reconstructions. Axial MIP reconstructions are created at the acquisition workstation. IV Contrast: 100 mL of Omnipaque 350. DLP: 1293 mGy-cm for the CT chest, abdomen and pelvis. COMPARISON: 10/14/2018 FINDINGS: Lines and Tubes: None. Lower Neck: Heterogeneously enhancing thyroid gland with few small thyroid nodules. Heart and Great Vessels: No cardiomegaly. No pericardial effusion. Minimal calcification seen along the left anterior descending coronary artery. Aortic atherosclerotic disease. Normal size of the ascending aorta and main pulmonary artery. No central pulmonary embolism. Lymph Nodes: No hilar, mediastinal, axillary or internal mammary lymphadenopathy. Lungs: Few scattered subsegmental platelike atelectatic changes are seen mainly in the left lung. No acute pulmonary abnormalities. No worrisome lung nodules. Pleura: No pleural effusion or pneumothorax. Upper abdomen: Please refer to separate report of the concomitantly performed CT abdomen and pelvis for findings below the diaphragm. Bones and Soft Tissues: Degenerative changes of the thoracic spine. No destructive focal osseous lesions. No acute osseous abnormalities. IMPRESSION: 1. No intrathoracic metastatic disease identified in the current study. No acute pulmonary abnormalities. 2. Minimal calcifications seen along th e left anterior descending coronary artery. Aortic atherosclerotic disease. 3. Please refer to separate report of t he concomitantly performed CT abdomen and pelvis for findings below the diaphragm. 04/03/2019 [facility] Abdomen/Pelvis w IV contrast CT EXAM: CT ABDOMEN AND PELVIS WITH CONTRAST DATE: 04/03/2019 10:50 [employer] INDICATION: - endometrial cancer. Evaluate left paraspinal hypodense lesion ADDITIONAL INFORMATION: History of prior bladder surgery, of prior ovarian surgery (the patient ensure if they were resected), of cholecystectomy, and of appendectomy. COMPARISON: CT of the chest, abdomen, and pelvis of 10/14/2018, PET CT scan of 01/23/2018, pelvic MRI with and without contrast of 11/21/2017. TECHNIQUE: Volumetric CT acquisition of the abdomen and pelvis after intravenous contrast. Axial, coronal and sagittal reconstructions. Postcontrast phases: Venous and delayed. IV contrast: 100 cc Omnipaque 300 Oral contrast: Oral Omnipaque 300 and water mixture. DLP: 1794 mGy-cm FINDINGS: Lines and tubes: None. Lower thorax: For details on the included portions of the thorax, please in the separate CT scan of the chest performed concurrently with this exam. Liver: Stable benign-appearing simple cysts are seen in the right and left hepatic lobes measuring 2.4 x 3.0 cm on image 17 of series 6, 1.0 x 1.4 cm on image 19 of series 6, and 1.9 x 2.2 cm on image 36 of series 6. Another stable hypodensity which is too small to characterize is seen within the left hepatic lobe on image 31 of series 6 measuring 5 mm in maximal diameter. No other liver abnormalities are seen. Biliary tree: Common bile duct remains mildly prominent likely from normal variant reservoir effect status post cholecystectomy. No intrahepatic biliary ductal dilatation is seen. Gallbladder: Surgically absent. Pancreas: Normal. Spleen: Normal. A small stable accessory splenule abuts the spleen medially on image 29 of series 6. Adrenals: Normal. Kidneys and ureters: A stable 6.0 cm in maximal diameter Bosniak 1 cyst is seen arising from the right kidney on image 60 of series 6. A stable 1.2 cm in maximal diameter simple cyst is seen in the inferior pole of the right kidney on image 75 of series 6 The otherwise kidneys enhance symmetrically and normally with prompt excretion of contrast material. No hydronephrosis, masses, or calculi are seen. The ureters are of normal course and caliber with no constricting or obstructing lesions. Bladder: Normal. Reproductive organs: The uterus and ovaries are surgically absent. No abnormalities of the vaginal cuff region are seen. Gastrointestinal tract: A small sliding esophageal hiatal hernia is present. The stomach is otherwise normal in appearance. Colonic diverticulosis is present with no CT evidence of acute diverticulitis. The small intestine and colon are otherwise of normal course and caliber with no constricting or obstructing lesions, masses, or surrounding inflammatory changes. No rectal or anal abnormalities are seen. Appendix: Normal (images 101-108 of series 6) Peritoneum and retroperitoneum: In the left anterior paraspinal region situated between the aortic bifurcation in the left psoas muscle abutting a surgical clip, again demonstrated is a hypodense lesion measuring 2.1 x 0.9 x 2.0 cm, decreased in size from the prior exam where it measured 2.5 x 0.9 x 3.6 cm. This lesion measures simple fluid attenuation and may represent a resolving seroma or lymphocele. Lymph nodes: No abdominal or pelvic lymphadenopathy by size criteria is seen. A stable 4 mm in short axis lymph node is seen in the left external iliac lymph node chain on image 129 of series 6. A stable 6 mm in short axis lymph node is seen in the left external iliac lymph node chain on image 135 of series 6. A stable 6 mm in short axis right external iliac lymph node is seen on image 139 of series 6. Small bilateral shotty inguinal lymph nodes are present. Vasculature: Mild stable scattered atherosclerotic plaque is present. No other abnormalities of the abdominal aorta, inferior vena cava, portal venous system, or other major visualized branches are detected. A normal variant circumaortic left renal vein is present. Bones: There is stable grade 1 anterior spondylolisthesis of L5 on S1 and of L4 on L5. Facet joint osteoarthritic changes are seen at these levels as well. Multilevel spondylosis and disc space narrowing are seen in the thoracic and lumbar spine. No osseous destructive lesions are seen.. Soft tissues/abdominal wall: Midline abdominal surgical scar is again seen. IMPRESSION: 1. A simple fluid attenuation left anter ior paraspinal lesion now measures 2.1 x 0.9 x 2.0 cm, decreased in size. It most likely represents a resolving seroma or resolving lymphocele related to prior surgery. 2. No convincing CT evidence of metastat ic endometrial cancer. Small stable lymph nodes are seen within the pelvis, as described above. 3. Stable simple renal and hepatic cysts . 4. For details on the included portions of the thorax, please see the separate CT scan of the chest performed concurrently with this exam. 5. Status post hysterectomy and bilatera l salpingooophorectomy with no adnexal region or vaginal cuff pathology detected. 6. Status post cholecystectomy. 7. The patient gives history of prior ap pendectomy. However, a normal appendix is visualized as described above. 8. Small stable sliding esophageal hiata l hernia. 04/03/2019 [facility] Chest/Abdomen/Pelvis w IV contrast CT Exam: CT scan of the chest, abdomen, and pelvis with contrast Reason for Exam: Malignant neoplasm of the endometrium Comparison Exam: PET CT 01/23/[address] scan 12/13/2016 Technique: Multiple axial images obtained of the chest, abdomen, and pelvis. 5 mm slices were acquired after injection of 100 cc Omnipaque IV. Volumen was given as oral contrast. In addition, reformatted sagittal and coronal images were obtained for additional diagnostic information. Total exam DLP = 1145 mGy- cm. This exam was performed according to our departmental dose-optimization program, which includes automated exposure control, adjustment of the MA and/or KV according to patient size and/or use of iterative reconstruction technique. Discussion: Chest: Visualized portions of the thyroid gland are within normal limits. No mediastinal, hilar, or axillary lymphadenopathy. The heart size is within normal limits. No pericardial or pleural effusions. The central airways are patent. No interstitial thickening or bronchiectasis. Mild atelectasis seen within the left lung base. No suspicious pulmonary nodules identified. Abdomen/pelvis: Multiple cysts seen within the liver. Portal venous system is patent. The patient is status post cholecystectomy. No biliary duct dilation. Stomach is unremarkable. Pancreas, adrenal glands, and spleen are within normal limits. Left kidney is unremarkable. Stable appearing cysts seen within the right kidney. No hydronephrosis or hydroureter. No dilated loops of bowel. The appendix is normal. Patient is status post hysterectomy. Stable appearing hypodense region seen within the left paraspinal region, abutting the left common iliac artery measuring approximately 3.2 x 1.9 cm (4, 52). No acute bony abnormalities identified. No suspicious osteoblastic or osteolytic lesions appreciated. Impression: 1. No evidence seen suggest metastatic disease to the chest. Stable appearing hypodense region seen within the left paraspinal region, abutting the left common iliac artery. 10/14/[address] Tumor imaging subq skull-midthigh EXAM: NM PET CT Skull Base to Mid Thigh DATE: 01/23/2018 10:00 [employer] INDICATION: C54.1-Endometrial Neoplasm, Restaging. COMPARISON: PET/CT 07/22/2017. TECHNIQUE: Approximately 60 minutes after IV injection of 16.84 mCi FDG, PET/CT imaging was performed from the level of the skull base to the midthigh. FINDINGS: Head and neck: There is redemonstration of mild FDG uptake in the left parotid gland max SUV 3.3. Chest: There is redemonstration of mild FDG uptake in the hilar region bilaterally, max SUV 3.9 on the right side and 4.1 on the left side (previous study max SUV 3.5 on the right side and 4.8 on the left side). No FDG-avid pulmonary nodules or adenopathy are seen. There is no pleural effusion or pericardial effusion. Abdomen and pelvis: There is interval resolution of previously demonstrated left periaortic and aortocaval lymph nodes. There is a hypodensity in that region without increased FDG uptake. Diffuse increased FDG uptake in the anterior abdominal wall in the midline, likely related to postoperative changes. No focal abnormal FDG uptake is identified in the liver, bilateral adrenals, spleen, or pancreas. No FDG avid lymphadenopathy is seen in the retroperitoneum and pelvis. Redemonstration of multiple cystic lesions in the liver and right renal cyst. Small non-FDG avid bilateral inguinal lymph nodes. Skeleton: No focal abnormal FDG activity is identified in the skeleton to suggest bony metastasis. Degenerative changes are present in the visualized osseous structures. IMPRESSION: 1. The current study when compared to previous PET/CT on 07/22/2017 demonstrates interval resolution of previously demonstrated left para-aortic and aortocaval lymph nodes with residual hypodensity without increased FDG uptake. 2. Redemonstration of stable mild FDG up take in the hilar region bilaterally, likely inflammatory in nature. 3. There is interval improved FDG uptake in the L4 spinous process. This is likely related to posttraumatic/inflammatory process. 01/23/2018 [facility] Pelvis w/wo contrast MRI Exam: MRI pelvis with and without contrast Reason for Exam: Cervical cancer. Bleeding. Comparison Exam: PET CT 07/22/2017 and MRI 07/03/2017 Technique: Multiplanar and multisequence imaging was performed of the pelvis. T1 and T2-weighted images were acquired with and without injection of 15 cc Dotarem IV. Discussion: The patient is status post hysterectomy and bilateral oophorectomy. No abnormal midline masses identified. No free fluid seen within the pelvis. Bladder is unremarkable. On recent MRI exam, there was description of a right para-aortic lymph node. This is not present on current exam. On previous exam, there was description of a left periaortic lymph node measuring 1.9 x 1.6 cm. On today's exam there is a cystic nonenhancing mass seen in the same location measuring 3.1 x 1.6 cm. This likely represents the sequela of treated lymphadenopathy. Correlate with clinical history. No new enlarged lymph nodes are seen within the pelvis. No dilated loops of bowel. No ventral or inguinal hernias identified. Impression: 1. On recent MRI exam, there was descri ption of a right para-aortic lymph node. This is not present on current exam. On previous exam, there was description of a left periaortic lymph node measuring 1.9 x 1.6 cm. On today's exam there is a cystic nonenhancing mass seen in the same location measuring 3.1 x 1.6 cm. This likely represents the sequela of treated lymphadenopathy. Correlate with c linical history. No new enlarged lymph nodes are seen within the pelvis. 11/21/[address] Tumor imaging initial skull-midth EXAM: NM PET CT Skull Base to Mid Thigh DATE: 07/22/2017 12:18 PM CDT INDICATION: C54.8-Uterine cancer - para-aortic lymphadenopathy on MRI pelvis. 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 COMPARISON: CT chest/abdomen/pelvis 12/13/2016 and MRI pelvis 07/03/2017. TECHNIQUE: After intravenous administration of 17.6 mCi of F-18 FDG, one hour delayed PET/non-contrast CT scan from the skull base to the mid thighs level was obtained. FINDINGS: PET: There is opacification of the left maxillary sinus with SUV of 2.9. There is focal uptake within the left parotid gland with SUV of 2.8 corresponding to a 0.7 cm intraparotid lymph node (series 402, image 24). There is a FDG avid left hilar lymph node with SUV of 4.8 and right hilar lymph node with SUV of 3.5. There has been interval development of intensely hypermetabolic left periaortic and aortocaval lymphadenopathy, that is not seen on prior CT from 12/13/2016. A 1.3 x 2.6 cm FDG avid left periaortic lymph node (series 402, image 90) demonstrates SUV of 14.1 and a 1.5 x 1.5 cm FDG avid aortocaval node demonstrates SUV of 4.0. Other Organs: No FDG avid pulmonary nodules No FDG avid lesions in the liver, spleen, pancreas, or adrenal glands. Bones: There is focal uptake at the L4 spinous process with SUV of 2.4 (series 402, image 92). No underlying osseous lesion is seen. Otherwise, no FDG avid skeletal lesions. There are multilevel degenerative changes in the spine. The remainder of tracer distribution and metabolism throughout the body is physiologic. CT: The non-contrast CT part of the study postsurgical changes related to gallbladder resection. Multiple hepatic cysts are non FDG avid. Simple right interpolar renal cyst is noted. Postsurgical changes related to hysterectomy and bilateral salpingooophorectomy are noted. Atheromatous changes are noted in the aorta and its branches. The remaining major visualized organs show no evidence of additional metastatic sites including the bones. IMPRESSION: 1. Interval development of hypermetabol ic left periaortic and aortocaval lymph nodes is consistent with metastatic disease. 2. Nonspecific mildly FDG avid bilatera l hilar lymph nodes that may be reactive, secondary to sarcoidosis, versus less likely metastatic disease. Attention on follow-up is recommended. 3. Nonspecific subcentimeter hypermetab olic left parotid lymph node that may be reactive. 4. Nonspecific uptake within the L4 spi nous process without corresponding osseous lesion. Attention on follow-up is recommended. 5. Left maxillary sinusitis. 07/22/2017 LYNN Guzman Pelvis w/wo contrast MRI EXAM: MR PELVIS WITHOUT CONTRAST DATE: 07/03/2017 1:41 PM CDT INDICATION: - s/p radiation ADDITIONAL INFORMATION: Patient underwent hysterectomy, bilateral salpingo- oophorectomy, omental biopsy, cystoscopy, and pelvic lymph node dissection on 01/10/2017. Pathology demonstrated endometrioid endometrial adenocarcinoma, FIGO grade 2 with 4.0 cm tumor invading into greater than 50% myometrium COMPARISON: Limited comparison with CT chest, abdomen and pelvis 12/13/2016 TECHNIQUE: Multiplanar, multisequence acquisition of the pelvis without intravenous contrast. IV contrast: None. Enteric contrast: None. FINDINGS: Bladder: Normal. Reproductive organs: Status post hysterectomy, bilateral salpingo-oophorectomy and pelvic lymph node dissection. Visualized gastrointestinal tract: Multiple colonic diverticula are noted. Appendix: Normal. Visualized kidneys and ureters: No hydronephrosis. Partially visualized nonenhancing lesion in the interpolar region of the right kidney likely represents a cyst. Peritoneum, mesentery and retroperitoneum: No free air, ascites or loculated fluid. Lymph nodes: Status post pelvic lymph node dissection. There are bulky distal para-aortic lymph nodes near the bifurcation measuring 4.1 x 1.9 x 1.6 cm (CC by TR by AP) in the left para-aortic region (image 138, series 2003) and 1.8 x 1.4 x 0.9 cm in the right para-aortic region (image 145, series 2003). These were not seen on comparison CT exam performed in December 31, 2016. Additional subcentimeter lymph nodes are seen in the left distal external iliac/femoral chain measuring up to 4 mm, nonspecific, however do not have suspicious features. Vasculature: Normal. Bones: Normal. Soft tissues: Tiny, fat-containing tiny umbilical hernia. IMPRESSION: 1. Bilateral (left greater than right) distal para-aortic lymphadenopathy near the bifurcation concerning for metastatic disease. This is new since comparison CT in 12/13/2016. 2. Status post hysterectomy, bilateral salpingo-oophorectomy, omental biopsy and pelvic lymph node dissection. 07/03/2017 DERRICK Guzman Chest/Abdomen/Pelvis w IV contrast CT Exam: CT scan of the chest, abdomen, and pelvis with contrast Reason for Exam: Malignant neoplasm of the uterus Comparison Exam: None Technique: Multiple axial images were obtained of the chest, abdomen, and pelvis. 5 mm slices were acquired after injection of 100 cc Visipaque IV. Oral contrast was also given. Reformatted sagittal and coronal images were obtained additional diagnostic information. Total exam DLP = 1052 mGy-cm. This exam was performed according to our departmental dose-optimization program, which includes automated exposure control, adjustment of the MA and/or KV according to patient size and/or use of iterative reconstruction technique. Discussion: Chest: Visualized portions of the thyroid gland are unremarkable. No mediastinal, hilar, or axillary lymphadenopathy. Heart size is within normal limits. No pericardial effusion. Central airways are patent. No interstitial thickening or bronchiectasis. No focal lung consolidations nor pleural effusion. No suspicious pulmonary nodules. Small hiatal hernia. Abdomen/Pelvis: Multiple cysts seen within the liver measuring up to 2.7 cm. The patient is status post cholecystectomy. No biliary duct dilation. Portal venous system is patent. Pancreas, adrenal glands, and spleen are within normal limits. Left kidney is unremarkable. 2.7 cm simple cyst seen within the right kidney. No hydronephrosis or hydroureter. No dilated loops of bowel. The appendix is normal. Bladder is unremarkable. Although patient has a history of uterine cancer, there is no distinct mass seen within the uterus on current exam. No appreciable lymphadenopathy. No acute bony abnormalities appreciated. No suspicious osteoblastic or osteolytic lesions. Impression: 1. No evidence seen suggest metastatic disease to the chest, abdomen, or pelvis. 12/13/2016 LYNN Branham Spine lumbar series DX Exam: L umbar Spine X-ray, 5 views Reason for Exam: back pain Comparison Exam: None Discussion: 5 non rib-bearing lumbar vertebral maria eugenia s are seen. Vertebral body heights are maintained. Minimal anterolisthesis seen of L4 on L5. Facet joint arthropathy and degenerative disc disease seen within the lower lumbar spine. Mild dextroscoliosis. No suspicious osteoblastic or osteolytic lesions. Note that a lumbar spine x-ray cannot rule out ligamentous injuries or spinal cord abnormalities. No dilated loops of bowel within the visualized portions of the abdomen and pelvis. Impression: 1. Minimal anterolisthesis seen of L4 o n L5. Facet joint arthropathy and degenerative disc disease seen within the lower lumbar spine. Mild dextroscoliosis. [facility] HISTORY: neck pain AGE: 70 years GENDER: Female TECHNIQUE: Cervical spine radiographs, 5 views. COMPARISON: None FINDINGS: The cervical spine is visualized to the level of C7-T1 on the lateral view. There is preservation of the normal cervical lordosis. There is no evidence of fracture or spondylolisthesis. The dens is intact. The lateral masses of C1 are normally positioned. There is mild degenerative disc disease in the lower cervical spine. Moderate facet arthropathy is seen in the mid cervical spine, asymmetric towards the left. There is resultant moderate bilateral neural foraminal narrowing, greater on the left. IMPRESSION: Mild degenerative disc disease in the lower cervical spine. Moderate bilateral facet arthropathy in the mid cervical spine with resultant bilateral neural foraminal narrowing, left greater than right. 01/24/2016 [facility] Consult[facility] Notes No Data Provided for This Section Discharge Summaries No Data Provided for This Section History and Physicals No Data Provided for This Section Vital Signs Vital Sign Value Date Comments Source Systolic (mm Hg) 106 07/13/2019 [facility] Diastolic (mm Hg) 71 07/13/2019 [facility] Heart Rate 73 07/13/2019 [facility] Respitory Rate 18 07/13/2019 [facility] Temperature Oral (F) 97.9 F 07/13/2019 [facility] Height 160.5 cm 07/13/2019 [facility] Weight 73 0 07/13/2019 [facility] BMI Calculated 28.34 07/13/2019 [facility] Systolic (mm Hg) 133 04/13/2019 [facility] Diastolic (mm Hg) 71 04/13/2019 [facility] Heart Rate 78 04/13/2019 [facility] Respitory Rate 18 04/13/2019 [facility] Temperature Oral (F) 98.1 F 04/13/2019 [facility] Height 151.4 cm 04/13/2019 [facility] Weight 72.8 04/13/2019 [facility] BMI Calculated 31.76 04/13/2019 [facility] Systolic (mm Hg) 119 03/23/2019 [facility] Diastolic (mm Hg) 78 03/23/2019 [facility] Heart Rate 78 03/23/2019 [facility] Respitory Rate 18 03/23/2019 [facility] Temperature Oral (F) 97.4 F 03/23/2019 [facility] Height 151.4 cm 03/23/2019 [facility] Weight 73.2 03/23/2019 [facility] BMI Calculated 31.93 03/23/2019 [facility] Systolic (mm Hg) 131 12/15/2018 [facility] Diastolic (mm Hg) 86 12/15/2018 [facility] Heart Rate 85 12/15/2018 [facility] Respitory Rate 16 12/15/2018 [facility] Temperature Oral (F) 98.7 F 12/15/2018 [facility] Height 148.8 cm 12/15/2018 [facility] Weight 76.6 12/15/2018 [facility] BMI Calculated 34.6 12/15/2018 [facility] Systolic (mm Hg) 133 09/15/2018 [facility] Diastolic (mm Hg) 71 09/15/2018 [facility] Heart Rate 82 09/15/2018 [facility] Respitory Rate 16 09/15/2018 [facility] Temperature Oral (F) 98.1 F 09/15/2018 [facility] Height 148.8 cm 09/15/2018 [facility] Weight 75.8 09/15/2018 [facility] BMI Calculated 34.23 09/15/2018 [facility] BMI Calculated 32.61 05/19/2018 [facility] Height 148.8 cm 05/19/2018 [facility] Weight 72.2 05/19/2018 [facility] Respitory Rate 16 05/19/2018 [facility] Temperature Oral (F) 98.1 F 05/19/2018 [facility] Heart Rate 78 05/19/2018 [facility] Systolic (mm Hg) 129 05/19/2018 [facility] Diastolic (mm Hg) 76 05/19/2018 [facility] Systolic (mm Hg) 134 02/17/2018 [facility] Diastolic (mm Hg) 71 02/17/2018 [facility] Heart Rate 80 02/17/2018 [facility] Respitory Rate 16 02/17/2018 [facility] Temperature Oral (F) 98.0 F 02/17/2018 [facility] Height 148.8 cm 02/17/2018 [facility] Weight 71.477 02/17/2018 [facility] BMI Calculated 32.28 02/17/2018 [facility] Weight 71.545 01/28/2018 [facility] Temperature Oral (F) 97.8 F 01/28/2018 [facility] Heart Rate 77 01/28/2018 [facility] Respitory Rate 20 01/28/2018 [facility] Systolic (mm Hg) 142 01/28/2018 [facility] Diastolic (mm Hg) 80 01/28/2018 [facility] Weight 66.818 11/26/2017 [facility] Heart Rate 70 11/26/2017 [facility] Respitory Rate 18 11/26/2017 [facility] Systolic (mm Hg) 138 11/26/2017 [facility] Diastolic (mm Hg) 82 11/26/2017 [facility] Systolic (mm Hg) 115 11/11/2017 [facility] Diastolic (mm Hg) 76 11/11/2017 [facility] Respitory Rate 16 11/11/2017 [facility] Heart Rate 77 11/11/2017 [facility] Weight 66.727 11/11/2017 [facility] BMI Calculated 29.86 11/11/2017 [facility] Height 149.5 cm 11/11/2017 [facility] Systolic (mm Hg) 124 10/25/2017 [facility] Diastolic (mm Hg) 80 10/25/2017 [facility] Respitory Rate 16 10/25/2017 [facility] Heart Rate 97 10/25/2017 [facility] Height 149.3 cm 10/21/2017 [facility] Weight 68.239 10/21/2017 [facility] BMI Calculated 30.61 10/21/2017 [facility] Respitory Rate 18 10/21/2017 [facility] Heart Rate 89 10/21/2017 [facility] Temperature Oral (F) 98.3 F 10/21/2017 [facility] Systolic (mm Hg) 117 10/21/2017 [facility] Diastolic (mm Hg) 77 10/21/2017 [facility] Weight 68.182 10/21/2017 [facility] BMI Calculated 30.59 10/21/2017 [facility] Height 149.3 cm 10/21/2017 [facility] Respitory Rate 16 10/21/2017 [facility] Temperature Oral (F) 98.3 F 10/21/2017 [facility] Heart Rate 92 10/21/2017 [facility] Systolic (mm Hg) 114 10/21/2017 [facility] Diastolic (mm Hg) 76 10/21/2017 [facility] Weight 69.545 10/16/2017 [facility] Temperature Oral (F) 97.4 F 10/16/2017 [facility] Systolic (mm Hg) 130 10/16/2017 [facility] Diastolic (mm Hg) 81 10/16/2017 [facility] Heart Rate 94 10/16/2017 [facility] Respitory Rate 16 10/16/2017 [facility] Temperature Oral (F) 97.8 F 10/15/2017 [facility] Heart Rate 92 10/15/2017 [facility] Respitory Rate 18 10/15/2017 [facility] Systolic (mm Hg) 111 10/15/2017 [facility] Diastolic (mm Hg) 71 10/15/2017 [facility] Weight 69.455 10/15/2017 [facility] Height 149.86 cm 10/15/2017 [facility] BMI Calculated 30.93 10/15/2017 [facility] Temperature Oral (F) 97.9 F 10/10/2017 [facility] Heart Rate 96 10/10/2017 [facility] Respitory Rate 15 10/10/2017 [facility] Systolic (mm Hg) 123 10/10/2017 [facility] Diastolic (mm Hg) 66 10/10/2017 [facility] Weight 69.091 10/07/2017 [facility] Temperature Oral (F) 98.1 F 10/07/2017 [facility] Respitory Rate 20 09/26/2017 [facility] Systolic (mm Hg) 125 09/26/2017 [facility] Diastolic (mm Hg) 83 09/26/2017 [facility] Heart Rate 68 09/26/2017 [facility] Weight 70.545 09/25/2017 [facility] Heart Rate 78 09/16/2017 [facility] Systolic (mm Hg) 132 09/16/2017 [facility] Diastolic (mm Hg) 85 09/16/2017 [facility] Temperature Oral (F) 98.4 F 09/16/2017 [facility] Height 149.86 cm 09/05/2017 [facility] Weight 71.136 09/05/2017 [facility] BMI Calculated 31.68 09/05/2017 [facility] Respitory Rate 16 09/05/2017 [facility] Temperature Oral (F) 97.8 F 09/05/2017 [facility] Heart Rate 76 09/05/2017 [facility] Systolic (mm Hg) 124 09/05/2017 [facility] Diastolic (mm Hg) 77 09/05/2017 [facility] BMI Calculated 32.58 08/26/2017 [facility] Weight 72.33 08/26/2017 [facility] Height 149 cm 08/26/2017 [facility] Heart Rate 73 08/26/2017 [facility] Temperature Oral (F) 99.0 F 08/26/2017 [facility] Respitory Rate 16 08/26/2017 [facility] Systolic (mm Hg) 121 08/26/2017 [facility] Diastolic (mm Hg) 75 08/26/2017 [facility] Heart Rate 76 08/18/2017 [facility] Respitory Rate 18 08/18/2017 [facility] Systolic (mm Hg) 104 08/18/2017 [facility] Diastolic (mm Hg) 57 08/18/2017 [facility] Temperature Oral (F) 97.5 F 08/18/2017 [facility] Respitory Rate 18 08/18/2017 [facility] Systolic (mm Hg) 114 08/18/2017 [facility] Diastolic (mm Hg) 71 08/18/2017 [facility] Temperature Oral (F) 98.5 F 08/18/2017 [facility] Heart Rate 71 08/18/2017 [facility] Systolic (mm Hg) 108 08/18/2017 [facility] Diastolic (mm Hg) 71 08/18/2017 [facility] Temperature Oral (F) 97.8 F 08/18/2017 [facility] Respitory Rate 18 08/18/2017 [facility] Heart Rate 78 08/18/2017 [facility] BMI Calculated 32.38 08/15/2017 [facility] Height 149.86 cm 08/15/2017 [facility] Weight 72.727 08/15/2017 [facility] BMI Calculated 32.38 08/05/2017 [facility] Weight 72.727 08/05/2017 [facility] Height 149.86 cm 08/05/2017 [facility] BMI Calculated 32.32 07/29/2017 [facility] Weight 72.727 07/29/2017 [facility] Height 150 cm 07/29/2017 [facility] Respitory Rate 18 07/29/2017 [facility] Systolic (mm Hg) 136 07/29/2017 [facility] Diastolic (mm Hg) 86 07/29/2017 [facility] Temperature Oral (F) 98.0 F 07/29/2017 [facility] Heart Rate 72 07/29/2017 [facility] Systolic (mm Hg) 130 07/25/2017 [facility] Diastolic (mm Hg) 79 07/25/2017 [facility] Temperature Oral (F) 98.2 F 07/25/2017 [facility] Heart Rate 79 07/25/2017 [facility] Respitory Rate 18 07/25/2017 [facility] BMI Calculated 32.89 07/25/2017 [facility] Weight 73.864 07/25/2017 [facility] Height 149.86 cm 07/25/2017 [facility] Weight 72.909 07/11/2017 [facility] Systolic (mm Hg) 131 07/11/2017 [facility] Diastolic (mm Hg) 81 07/11/2017 [facility] Temperature Oral (F) 98.3 F 07/11/2017 [facility] Heart Rate 81 07/11/2017 [facility] Respitory Rate 17 07/11/2017 [facility] BMI Calculated 32.14 05/27/2017 [facility] Weight 71.364 05/27/2017 [facility] Height 149 cm 05/27/2017 [facility] Temperature Oral (F) 97.9 F 05/27/2017 [facility] Heart Rate 69 05/27/2017 [facility] Respitory Rate 16 05/27/2017 [facility] Systolic (mm Hg) 127 05/27/2017 [facility] Diastolic (mm Hg) 81 05/27/2017 [facility] Weight 70.636 03/25/2017 [facility] Heart Rate 68 03/25/2017 [facility] Respitory Rate 20 03/25/2017 [facility] Temperature Oral (F) 98.4 F 03/25/2017 [facility] Systolic (mm Hg) 135 03/25/2017 [facility] Diastolic (mm Hg) 80 03/25/2017 [facility] BMI Calculated 32.14 02/25/2017 [facility] Weight 71.364 02/25/2017 [facility] Height 149 cm 02/25/2017 [facility] Systolic (mm Hg) 116 02/25/2017 [facility] Diastolic (mm Hg) 68 02/25/2017 [facility] Temperature Oral (F) 80 F 02/25/2017 [facility] Heart Rate 80 02/25/2017 [facility] Respitory Rate 16 02/25/2017 [facility] Weight 70.682 01/28/2017 [facility] Temperature Oral (F) 98.5 F 01/28/2017 [facility] Heart Rate 77 01/28/2017 [facility] Respitory Rate 16 01/28/2017 [facility] Systolic (mm Hg) 115 01/28/2017 [facility] Diastolic (mm Hg) 73 01/28/2017 [facility] Height 149 cm 01/28/2017 [facility] BMI Calculated 31.84 01/28/2017 [facility] Systolic (mm Hg) 120 01/11/2017 [facility] Diastolic (mm Hg) 69 01/11/2017 [facility] Heart Rate 60 01/11/2017 [facility] Respitory Rate 18 01/11/2017 [facility] Temperature Oral (F) 98.3 F 01/11/2017 [facility] Heart Rate 75 01/11/2017 [facility] Temperature Oral (F) 99.3 F 01/11/2017 [facility] Systolic (mm Hg) 108 01/11/2017 [facility] Diastolic (mm Hg) 61 01/11/2017 [facility] Respitory Rate 18 01/11/2017 [facility] Heart Rate 62 01/11/2017 [facility] Respitory Rate 18 01/11/2017 [facility] Systolic (mm Hg) 98 01/11/2017 [facility] Diastolic (mm Hg) 60 01/11/2017 [facility] Temperature Oral (F) 98.6 F 01/11/2017 [facility] Height 149.86 cm 01/10/2017 [facility] BMI Calculated 31.98 01/10/2017 [facility] Weight 71.818 01/10/2017 [facility] Weight 72.727 01/02/2017 [facility] BMI Calculated 32.38 01/02/2017 [facility] Height 149.86 cm 01/02/2017 [facility] Height 150 cm 12/17/2016 [facility] BMI Calculated 31.76 12/17/2016 [facility] Weight 71.455 12/17/2016 [facility] Systolic (mm Hg) 137 12/17/2016 [facility] Diastolic (mm Hg) 82 12/17/2016 [facility] Temperature Oral (F) 97.8 F 12/17/2016 [facility] Respitory Rate 18 12/17/2016 [facility] Heart Rate 78 12/17/2016 [facility] Weight 71.136 12/07/2016 [facility] BMI Calculated 32.04 12/07/2016 [facility] Height 149 cm 12/07/2016 [facility] Respitory Rate 18 12/07/2016 [facility] Heart Rate 73 12/07/2016 [facility] Temperature Oral (F) 98.9 F 12/07/2016 [facility] Systolic (mm Hg) 121 12/07/2016 [facility] Diastolic (mm Hg) 73 12/07/2016 [facility] Encounters Location Location Details Encounter Type Encounter Number Reason For Visit Attending Provider ADM Date DC Date Status Source [facility] [id number] Jose Daniel Juárez 01/24/2016 [id number] Micheline Jacksongent 12/07/2016 01/06/2017 [facility] Outpatient [facility] [place] [facility] [id number] Micheline Kizzy 12/13/2016 12/14/2016 [facility] Bedded Outpatient [id number] Micheline Jacksongent 01/11/2017 01/12/2017 [facility] Oncology [facility] Recurring [id number] Micheline Durand 01/28/2017 02/27/2017 [facility] Radiation Therapy [facility] Recurring [id number] Jeff Simpson 03/25/2017 04/24/2017 [facility] Oncology [facility] Recurring [id number] Micheline Durand 05/27/2017 06/26/2017 [facility] [id number] Mary Bethapurva Snow 07/03/2017 07/04/2017 [facility] Radiation Therapy [facility] Recurring [id number] Jeff Simpson 07/11/2017 08/10/2017 [facility] Outpatient [facility] [id number] Jeff Ocamponco 07/22/2017 07/23/2017 [facility] Oncology [facility] Recurring [id number] Micheline Jacksongent 07/29/2017 08/28/2017 [facility] Inpatient [id number] Micheline Kizzy 08/15/2017 08/18/2017 [facility] Radiation Therapy [facility] Recurring [id number] Jeff Simpson 09/05/2017 10/05/2017 [facility] Oncology Re curring [id number] Micheline Jacksongent 09/23/2017 10/23/2017 [facility] HH Radiation Therapy (HHRT) Recurring [id number] Jeff Simpson 10/07/2017 11/06/2017 [facility] Oncology Re curring [id number] Michelinealayna Durand 11/11/2017 12/11/2017 [facility] Outpatient Imaging [facility] [place] [facility] [id number] 04 Rashmi Bueno 11/21/2017 11/22/2017 [facility] Radiation Therapy (HHRT) Recurring [id number] Jeff Simpson 11/26/2017 12/26/2017 [facility] Outpatient Imaging [facility] [id number] Rashmi Bueno 01/23/2018 01/24/2018 [facility] Radiation Therapy (HHRT) Recurring [id number] Jeff Simpson 01/28/2018 02/27/2018 [facility] Oncology Re curring [id number] Micheline Durand 02/17/2018 03/19/2018 [facility] Oncology Re curring [id number] Micheline Durand 05/19/2018 06/18/2018 [facility] Oncology Re curring [id number] Micheline Sheehant 09/15/2018 10/15/2018 [facility] Outpatient Imaging [facility] [place] [facility] [id number] 08 Micheline Jacksongent 10/14/2018 10/15/2018 [facility] OP Therapy Patients [id number] 09 Micheline Jacksongent 11/07/2018 12/07/2018 [facility] OP Therapy Patients [id number] Micheline Kizzy 12/10/2018 01/09/[address] [facility] Oncology Re curring [id number] Micheline Kizzy 12/15/2018 01/14/2019 [facility] OP Therapy Patients [id number] 08 Micheline Kizzy 01/09/2019 02/08/[address] [facility] Oncology Re curring [id number] Micheline Jacksongent 03/23/2019 04/22/2019 [facility] Outpatient Imaging - [place] [facility] [id number] 09 Micheline Durand 04/03/2019 04/04/2019 [facility] Oncology Re curring [id number] Micheline Sheehant 07/13/2019 08/12/2019 [facility] Procedures Procedure Code Date Perfomer Comments Source Cholecystectomy [id number] [facility], L[facility]NN Guzman, [facility] BSO - Bilateral salpingo-oophorectomy [id number] [facility], LYNN Guzman, [facility] Carrol,[facility] Hysterectomy [id number] [facility], LYNN Guzman, L[facility] Branham,[facility] Assessment and Plan Assessment and Plan Date Source Extracted from:Title: Program Schedule Clerk Onc Progress N ote Author: Isabelle Snyder MD Date: 08/18/17 Impression and Plan Mrs. Muñoz is a 72 yo F w/ H/o of 1B endometrioid adenocarcinoma of the uterus and VCBT found to have 2 PET positive nodes and is now s/p Ex Lap, Para-aortic Lymphadectomy and omental biopsy, POD#3 and doing well. 1. POD # 3- Post Op Course Uneventful Th us Far. Pt meeting appropriate milestones however still not ambulating well. AFVSS. Pathology pending. -Regarding ambulation, s/p PT +OT who be lieve pt needs assistance when DC home. Per pt, she reports will have help from sister and family. Has walker/rollater for assistance with walking -Regarding abd pain, givben PE and pt ex planbation, likely 2/2 gas pain. Encourage ambulation w/ assistance and will suppository at this time. Will f/u on PM rounds. 2. Heme: 14 > EBL 350cc > 10.1> 11.3 > 1 0 (stable) 3. Neuro: Pain: s/p TAPS block, managed on ERAS protocol 4. Resp: CTAB - spirometry at bedside 5. GI: Tolerating Regular Diet, (-) BM P assing flatus 6. : Voiding freely. Adequate Urine Ou tput. Cr 0.67 preop 7. Wound care: vertical Incision,C/D/I 8. DVT Prophylaxis: SCDs in place, on Lo venox Prophylaxis 9. Stage 1B Endometrioid endometrial sangeeta nocarcinoma - s/p RAVH/BSO/staging 12/2016 / vaginal cuff brachytherapy 03/2017 - s/p ex lap, para aortic lymphadenectom y, omentectomy on 08/15 - Path pending - For radiation outpatient 10. Code status: Full code. 11. Electrolytes: potassium 3.6 > 3.8 dispo: continue routine post-op care. For PM DC if abd pain improves Pt discussed and examined w/ Dr. Erik Snyder MD PGY-2 Extracted from:Title: APMS Consult Note Author: Rashmi Dhaliwal DO Date: 08/16/17 Patient: BEATRIZ MUÑOZ Age: 72 years Sex: Female : 1945 Associated Diagnoses: None Author: Rashmi Dhaliwal DO Basic Information Referral source Reason for consultation: Complex Acute Pain Chief Complaint Post operative pain History of Present Illness 72 yo F w/ H/o of endometrioid adenocarcinoma of the uterus who is now s/p Ex Lap, Para-aortic Lymphadectomy and omental biopsy on 08/15. She received b/l QL blocks preoperatively. She is doing well post op and says her pain is well controlled. Histories Past Medical History: Active Uterine cancer (0472102592) Osteoarthritis (0733942678) Obesity (1820780495) GERD (gastroesophageal reflux disease) (294939463) Resolved Depression (5712342110): Resolved. SOB (shortness of breath) on exertion (130611724): Resolved. Family History: Heart disease Mother Diabetes Brother Prostate cancer Father Procedure history: Cholecystectomy (34979525). Hysterectomy (921126611). BSO - Bilateral salpingo-oophorectomy (0986818224). Social History Social and Psychosocial Habits Alcohol 08/15/2017 Use: Never Tobacco 08/15/2017 Use: Never smoker Type: Cigarettes Previous treatment: None Exposure to Tobacco Smoke None Cigarette Smoking Last 365 Days No Reg Smoking Cessation Counseling No Comment: Pt has never smoked - 12/07/2016 13:07 - Rosa Wasserman . Health Status Allergies: Allergic Reactions (Selected) Severity Not Documented NKDA- No reactions were documented., Allergies (1) Active Reaction NKDA None Documented Current medications: (Selected) Inpatient Medications Ordered Reglan: 10 mg, 2 mL, IVP, Q6H, PRN: as needed for nausea/vomiting Senna Smooth: 30 mg, 17.05 mL, PO, BID Zofran: 4 mg, 1 tab, PO, Q8H acetaminophen: 1,000 mg, 2 tab, PO, Q6Hnow celecoxib: 200 mg, 1 cap, PO, [id number] gabapentin: 300 mg, 1 cap, PO, Q8Hnow magnesium oxide: 400 mg, 1 tab, PO, BID prochlorperazine: 5 mg, 1 mL, IVP, ONCE, PRN: as needed for nausea/vomiting remove patch: 1 patch, TOP, ONCALL simethicone: 80 mg, 1 tab, PO, Q6H, PRN: Gas tramadol: 100 mg, 2 tab, PO, Q6Hnow, PRN: Pain Score 7-10 tramadol: 50 mg, 1 tab, PO, Q6H, PRN: Pain Score 4-6 Documented Medications Documented meloxicam: PO, Daily, 0 Refill(s) pantoprazole: 40 mg, PO, Daily, for 30 day, 30 tab, 0 Refill(s), Medications (12) Active Scheduled: (7) acetaminophen 500 mg TAB 1,000 mg 2 tab, PO, Q6Hnow celecoxib 200 mg CAP 200 mg 1 cap, PO, [id number] gabapentin 300 mg CAP 300 mg 1 cap, PO, Q8Hnow magnesium oxide (242 mg elemental) tab 400 mg 1 tab, PO, BID ondansetron 4 mg TAB 4 mg 1 tab, PO, Q8H scopolamine patch removal 1 patch, TOP, ONCALL senna 8.8 mg/5 ml oral SOLN 30 mg 17.05 mL, PO, BID Continuous: (0) PRN: (5) metoclopramide 10 mg/2 ml VL 10 mg 2 mL, IVP, Q6H prochlorperazine 10 mg/2 ml VL INJ 5 mg 1 mL, IVP, ONCE simethicone 80 mg CHEW 80 mg 1 tab, PO, Q6H traMADol 50 mg TAB 50 mg 1 tab, PO, Q6H traMADol 50 mg TAB 100 mg 2 tab, PO, Q6Hnow Problem list: All Problems Arthritis / SNOMED CT 3931649 / Confirmed SOB (shortness of breath) / SNOMED CT 004023398 / Confirmed Pt states sometimes when she bends down to tie her shoes Fatigue / SNOMED CT 293565151 / Confirmed GERD (gastroesophageal reflux disease) / SNOMED CT 764873981 / Confirmed Headache / SNOMED CT 01987075 / Confirmed Pt states she has headaches sometimes Frequent urination / SNOMED CT 831812065 / Confirmed Uterine cancer / SNOMED CT 7714635768 / Confirmed Uterine cancer / SNOMED CT 3416311068 / Confirmed Nausea / SNOMED CT 0383425991 / Confirmed Obesity / SNOMED CT 2220087962 / Confirmed Osteoarthritis / SNOMED CT 8655624163 / Confirmed Leg pain, bilateral / SNOMED CT 412212638 / Confirmed Pt states her right leg hurts more than the left leg Pelvic pain / SNOMED CT 118340139 / Confirmed Vaginal itching / SNOMED CT 12611848 / Confirmed Vaginal bleeding / SNOMED CT 4374457912 / Confirmed Vaginal bleeding / SNOMED CT 0045850254 / Confirmed Vaginal pain / SNOMED CT 30136545 / Confirmed, Active Problems (17) Arthritis Fatigue Frequent urination GERD (gastroesophageal reflux disease) Headache Leg pain, bilateral Nausea Obesity Osteoarthritis Pelvic pain SOB (shortness of breath) Uterine cancer Uterine cancer Vaginal bleeding Vaginal bleeding Vaginal itching Vaginal pain Review of Systems Constitutional: No fever, No chills. Cardiovascular: Negative. Ear/Nose/Mouth/Throat: Negative. Respiratory: No shortness of breath, No cough. Gastrointestinal: No nausea, No vomiting. Genitourinary: No dysuria, No hematuria. Musculoskeletal: Negative. Neurologic: Alert and oriented X4. Psychiatric: No anxiety, No depression. Endocrine: Negative. Hematology/Lymphatics: Negative. Physical Examination VS/Measurements Measurements from flowsheet : Measurements 08/15/2017 09:38 Heparin Dosing Weight (kg) 55.01 08/15/2017 09:38 Height 149.86 cm Height Collection Method Stated Weight 72.727 kg Dosing Weight Difference Percent 0 % Dosing Weight Collection Method Estimated Body Mass Index 32.38 m2 , Vital Signs (last 24 hrs) Last Charted Temp Oral 98.5 DegF (AUG 16 03:45) Heart Rate Peripheral 72 bpm (AUG 16 05:) Resp Rate 18 BRMIN (AUG 16 05:00) SBP 98 mmHg (AUG 16 05:) DBP 64 mmHg (AUG 16 05:) SpO2 96 % (AUG 16:) Weight 72.727 kg (AUG 15) Height 149.86 cm (AUG 15) BMI 32.38 (AUG 15) General: Alert and oriented. Eye: Pupils are equal, round and reactive to light, Extraocular movements are intact. HENT: Normocephalic. Neck: Supple, Non-tender. Respiratory: Lungs are clear to auscultation. Cardiovascular: Normal rate, Regular rhythm. Gastrointestinal: Soft. Genitourinary: No costovertebral angle tenderness. Musculoskeletal Normal range of motion. Integumentary: Warm, Dry. Neurologic: Alert, Oriented. Review / Management Results review: Labs (Last four charted values) WBC 8.8 (AUG 16) 5.6 (AUG 05) Hgb L 11.3 (AUG 16) L 10.1 (AUG 15) 14.0 (AUG 05) Hct L 34.2 (AUG 16) L 31.3 (AUG 15) 41.8 (AUG 05) Plt 191 (AUG 16) 235 (AUG 05) Na 139 (AUG 16) 142 (AUG 05) K 4.4 (AUG 16) 4.3 (AUG 05) CO2 L 23 (AUG 16) 31 (AUG 05) Cl 106 (AUG 16) 106 (AUG 05) Cr 0.73 (AUG 16) 0.67 (AUG 05) BUN 10 (AUG 16) 9 (AUG 05) Glucose Random H 126 (AUG 16) 90 (AUG 05) Mg 2.0 (AUG 16) Phos 2.9 (AUG 16) Ca L 8.0 (AUG 16) 9.2 (AUG 05) PT 12.8 (AUG 05) INR 0.96 (AUG 05) PTT 32.7 (AUG 05) . Chest x-ray results ECG interpretation Impression and Plan Diagnosis Pain associated with surgical procedure ([id number] G89.18, Working, Medical). Course: Improving. Orders Diagnosis Pain associated with surgical procedure ([id number] G89.18, Working, Medical). Course: Improving. Education and Follow-up: Counseled: Regarding treatment, Regarding medications. 72 yo F w/ H/o of endometrioid adenocarcinoma of the uterus who is now s/p Ex Lap, Para-aortic Lymphadectomy and omental biopsy on 08/15. She received b/l QL blocks preoperatively. She is doing well post op and says her pain is well controlled. -Continue current regiemn -add robaxin 1g Q8 -APMS to sign off. Please call [phone] [facility] questions. Addendum by Christelle Schmitt MD on 08/16/2017 13:24 TEACHING ATTESTATION I saw and examined the patient and discussed with the resident. I agree with the resident's note, including assessment and plan of care. BERTHA Delgado MD Anesthesiology and Pain Medicine Extracted from:Title: Clinical Document Author: Micheline Durand MD Date: 08/14/17 Gynecology Oncology Pre-op H&P CC: here for surgery HPI: Pt is a 72 yo HF HF with stage IB Endometrioid Endmoetrial Adenocarcinoma s/p RAVH/BSO/staging on 01/10/2017. Interval HX: While she was being worked up for incontinence she underwnet TVUS and urodynamics and then devleoped PMB. 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 She underent labs and CT demonstrated disease which is confined to the uterus. She was then taken for RAVH/BSO staging on 01/10/2017. She completed vaginal cuff brachytherapy on 04/09/2017. PET CT dated 07/22/2017 demonstrated non specific findings in the left parotid, left hilar region and also the L4 spinous process. It does demonstrate interval development of hypermetabolic left paeriarotic and artocaval lymphadenopathy. Patient was counseled on option and opts for lymphadenectomy and radiation. 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 HEENT: Patient denies any visual changes, hearing loss, URI symptoms. CARDIOVASCULAR: Patient denies chest pain, palpitations, syncope, leg swelling. RESPIRATORY: Patient denies shortness of breath, wheezing, cough or hemoptysis. GASTROINTESTINAL: Denies abdominal pain, vomiting, nausea, constipation, diarrhea, blood stools. : Denies dysuria, hesitancy. +frequency,.-hematuria GLOBAL PRODUCT MANAGER: Patient +vaginal bleeding.- change in vaginal discharge, vaginal pain or masses. MUSCULOSKELETAL: Patient denies any arthralgias, myalgias, joint pain. No edema. INTEGUMENTARY: Patient denies dark thickened skin, acne, alopecia, breast pain, breast lump, rash or skin lesions. NEUROLOGICAL: Patient denies any convulsions, ringing in the ears, dizziness, tingling or weakness. PSYCHIATRIC: Patient denies any depression, change in personality, emotional problems, sleep disturbances, anxiety or suicidal ideation. ENDOCRINE: Patient denies deepening of the voice, appetite changes, hot flashes or sensitivities to temperature. HEMATOLOGY AND LYMPH NODES: Patient denies easy bleeding, bruising or swollen glands. PSocial HX: negative x3 PFamily Hx: Father with prostate cancer Physical Exam Vitals - see EMR for updated vitals General- NAD, A&Ox3 Pelvic: deferred until surgery Assessment/Plan: Pt is a 72 yo HF HF with stage IB Endometrioid Endmoetrial Adenocarcinoma s/p RAVH/BSO/staging on 01/10/2017 and s/p VCBT 03/2017 that presents for scheduled Lymphadenectomy. *Patient noted to have PET CT 07/2017 with hypermetabolic left paeriarotic and artocaval lymphadenopathy. -Scheduled for Lymphadectomy today. *No further updates to H&P Discussed with Dr. Durand, Attending Surgeon Kristin Ramírez MD PGY-3, OBGYN 08/18/2017 [facility] Extracted from:Title: Progress Note * Author: Saint Prateek Kang MD Date: 01/11/17 Patient: BEATRIZ MUÑOZ Age: 71 years Sex: Female : 1945 Associated Diagnoses: None Author: Saint Prateek Kang MD Basic Information CC: Abdominal Pain Requesting Physician: Micheline Sultana Subjective 71 yo HF now s/p RAVH, BSO, BERYL, cysto, PLND 2/2 serous carcinoma of the uterus on POD#. She endorses a mild 4/10 pain which is controlled with PO pain medication, denies any aggravating or temporal factors, as well as, denies n/v. She is able to tolerate PO intake and is doing well. Review of Systems Constitutional: Negative. Eye: Negative. Respiratory: Negative. Gastrointestinal: Abdominal pain: The pain is mild. Health Status Allergies: Allergic Reactions (All) Severity Not Documented NKDA- No reactions were documented. Problem list: All Problems Arthritis / SNOMED CT 6436728 / Confirmed SOB (shortness of breath) / SNOMED CT 403277695 / Confirmed Pt states sometimes when she bends down to tie her shoes Fatigue / SNOMED CT 088730520 / Confirmed GERD (gastroesophageal reflux disease) / SNOMED CT 508544258 / Confirmed Headache / SNOMED CT 96249868 / Confirmed Pt states she has headaches sometimes Frequent urination / SNOMED CT 754809456 / Confirmed Uterine cancer / SNOMED CT 7805679420 / Confirmed Uterine cancer / SNOMED CT 7340896373 / Confirmed Obesity / SNOMED CT 4665136994 / Confirmed Osteoarthritis / SNOMED CT 1788251121 / Confirmed Leg pain, bilateral / SNOMED CT 929333227 / Confirmed Pt states her right leg hurts more than the left leg Pelvic pain / SNOMED CT 902014550 / Confirmed Vaginal bleeding / SNOMED CT 5858039402 / Confirmed Objective Meds Scheduled Meds (6):acetaminophen, celecoxib (CeleBREX), enoxaparin (Lovenox), gabapentin (Neurontin), ondansetron (Zofran), senna Unscheduled Meds: None PRN Meds (5):metoclopramide (Reglan), promethazine (Phenergan), simethicone, tramadol, tramadol One Time Meds (9):(Completed) dexamethasone (dexamethasone (ANES)), (Completed) famotidine (famotidine (ANES)), (Completed) fentaNYL (fentaNYL (ANES)), (Completed) ketAMINE (ketAMINE (ANES)), (Completed) lidocaine (lidocaine (ANES)), (Completed) metoclopramide (metoclopramide (ANES)), (Completed) midazolam (midazolam (ANES)), (Completed) propofol (propofol (ANES)), (Completed) rocuronium (rocuronium (ANES)) Continuous Infusions (1):Dextrose 5% in Lactated Ringers IV 1,000 mL (D5LR 1,000 mL) I&O Input/Output Record In Out Bal 01/11 24hr Tot 360 0 360 01/10 24hr Tot 2800 1800 1000 VS/Measurements Measurements from flowsheet : Measurements 01/10/2017 08:38 Heparin Dosing Weight (kg) 54.65 01/10/2017 08:38 Height 149.86 cm Height Collection Method Estimated Weight 71.818 kg Dosing Weight Difference Percent -1.25 % Dosing Weight Collection Method Estimated Body Surface Area 1.7291 m2 Body Mass Index 31.98 m2 , Vital Signs (last 24 hrs) Last Charted Temp Oral H 99.3 DegF (JAN 11:38) Heart Rate Peripheral 75 bpm (JAN 11:) Resp Rate 18 BRMIN (JAN 11:) SBP 108 mmHg (JAN 11:) DBP 61 mmHg (JAN 11:) SpO2 97 % (JAN 11:) Labs Most Recent Results Previous Results Previous Results Previous Results WBC 10.4 (JAN 11) 5.6 (JAN 02) -- -- Hgb 12.1 (JAN 11) 14.4 (JAN 02) -- -- Hct L 35.9 (JAN 11) 44.0 (JAN 02) -- -- Plt 200 (JAN 11) 219 (JAN 02) -- -- Na 141 (JAN 11) 144 (JAN 02) -- -- K 4.3 (JAN 11) 4.9 (JAN 02) -- -- CO2 L 23 (JAN 11) 30 (JAN 02) -- -- Cl 108 (JAN 11) 106 (JAN 02) -- -- Cr 0.65 (JAN 11) 0.62 (JAN 02) -- -- BUN 8 (JAN 11) 11 (JAN 02) -- -- Glucose Random H 211 (JAN 11) 93 (JAN 02) -- -- Mg 2.2 (JAN 11) -- -- -- Phos 3.2 (JAN 11) -- -- -- Ca 8.7 (JAN 11) 9.1 (JAN 02) -- -- Impression and Plan 71 yo HF now s/p RAVH, BSO, BERYL, cysto, PLND 2/2 serous carcinoma of the uterus who is now POD#1. Patient is doing well and her pain is controlled. Recommend continuing po pain medication and APMS will sign off. Addendum by Abel Terry MD on 01/11/2017 14:55 TEACHING PHYSICIAN ADDENDUM: I saw and personally examined this patient and discussed the plan of care with this resident. I have reviewed the note below and agree with the history, examination findings and the plan of care. Extracted from:Title: Clinical Document Author: Micheline Durand MD Date: 01/09/17 Gynecology Oncology Pre-op H&P CC: here for surgery HPI: Pt is a 71 yo HF with hx of incontinence who developed postmenopausal bleeding during her incontinence workup and found to have serous carcinoma of the endometrium. While she was being worked up for incontinence she underwent TVUS and urodynamics and then developed PMB. She had a D and C performed which resulted as a serous carcinoma. She was then referred to gynecology oncology. She reports fatigue as her only sx of metastatic disease. She underwent labs and CT which demonstrate disease which is confined to the uterus. Patient desires to proceed with surgical management. PMH: GERD Arthritis PSH: CCK [employer] MANAGER History Menarche/Menopause: 14/45-51yo Hormonal exposure with OCPs:no Took HRT:no Last PAP 2017 WNL Last Mammogram 2017 OBSTETRIC History P:2001 Children healthy REVIEW OF SYSTEMS: CONSTITUTIONAL: Patient denies any fevers, chills. HEENT: Patient denies any visual changes, hearing loss, URI symptoms. CARDIOVASCULAR: Patient denies chest pain, palpitations, syncope, leg swelling. RESPIRATORY: Patient denies shortness of breath, wheezing, cough or hemoptysis. GASTROINTESTINAL: Denies abdominal pain, vomiting, nausea, constipation, diarrhea, blood stools. : Denies dysuria, hesitancy. +frequency,.-hematuria GLOBAL PRODUCT MANAGER: Patient +vaginal bleeding.- change in vaginal discharge, vaginal pain or masses. MUSCULOSKELETAL: Patient denies any arthralgias, myalgias, joint pain. No edema. INTEGUMENTARY: Patient denies dark thickened skin, acne, alopecia, breast pain, breast lump, rash or skin lesions. NEUROLOGICAL: Patient denies any convulsions, ringing in the ears, dizziness, tingling or weakness. PSYCHIATRIC: Patient denies any depression, change in personality, emotional problems, sleep disturbances, anxiety or suicidal ideation. ENDOCRINE: Patient denies deepening of the voice, appetite changes, hot flashes or sensitivities to temperature. HEMATOLOGY AND LYMPH NODES: Patient denies easy bleeding, bruising or swollen glands. PSocial HX: negative x3 PFamily Hx: Father with prostate cancer Physical Exam Vitals - see EMR for updated vitals General- NAD, A&Ox3 Pelvic: deferred until surgery Assessment/Plan: Pt is a 71 yo HF with serous carcinoma diagnosed after PMB was identified. 1) Serous carcinoma -CT CAP RENEA other than in uterus -Full labs obtained with CA125; WNL - RBA of surgery were discussed in clini c. - Proceed with RAVH/BSO/PPALND with omen dominik bx and pelvic washings, possible EL/DEMETRA if necessary to complete surgery. D/w Dr. Kizzy Davis MD, PGY-4 Oncology Staff Patient was seen and examined with the resident. I agree with the plan of care as outlined in the above note. Micheline Durand MD [phone] 01/12/2017 [facility] Plan of Care No Data Provided for This Section Social History Social History Date Source Social History TypeResponse Alcohol Never Smoking Status Never smoker; Type: Cigarettes; Previous treatment: None; Exposure to Tobacco Smoke None; Cigarette Smoking Last 365 Days No; Reg Smoking Cessation Counseling No1 entered on: 05/19/18 1Pt has never smoked 09/30/2017 L[facility] Guzman Social History TypeResponse Alcohol Never Smoking Status Never smoker; Type: Cigarettes; Previous treatment: None; Exposure to Tobacco Smoke None; Cigarette Smoking Last 365 Days No; Reg Smoking Cessation Counseling No1 entered on: 09/15/18 1Pt has never smoked 09/30/2017 LYNN [place] Social History TypeResponse Alcohol Never Smoking Status Never smoker; Type: Cigarettes; Previous treatment: None; Exposure to Tobacco Smoke None; Cigarette Smoking Last 365 Days No; Reg Smoking Cessation Counseling No1 entered on: 07/13/19 1Pt has never smoked 09/30/2017 [facility] Social History TypeResponse Alcohol Never Smoking Status Never smoker; Type: Cigarettes; Previous treatment: None; Exposure to Tobacco Smoke None; Cigarette Smoking Last 365 Days No; Reg Smoking Cessation Counseling No1 entered on: 12/15/18 1Pt has never smoked 09/30/[address] [facility] Social History TypeResponse Alcohol Never Smoking Status Never smoker; Type: Cigarettes; Previous treatment: None; Exposure to Tobacco Smoke None; Cigarette Smoking Last 365 Days No; Reg Smoking Cessation Counseling No1 entered on: 03/23/19 1Pt has never smoked 09/30/2017 [facility] [place] Family History No Data Provided for This Section Advance Directives No Data Provided for This Section Functional Status No Data Provided for This Section
[2019-10-06] MEDS ORDERED: MORPHINE SULFATE INJ 4 MG/ML INJ 1ML IV STA (22:32)
[2019-10-06 22:36] LABS: ALANINE AMINOTRANSFERASE 25 IU/L (0-55); ALBUMIN 4.5 g/dL (3.5-5.0); ALBUMIN/GLOBULIN RATIO 1.1 (0.8-2.0); ALKALINE PHOSPHATASE 86 IU/L (40-150); ANION GAP 19.2 mmol/L (8-16); BLOOD UREA NITROGEN 11 mg/dL (7-26); BUN/CREATININE RATIO 13 (6-25); CALCIUM 10.6 mg/dL (8.4-10.2); CARBON DIOXIDE 25 mmol/L (22-29); CHLORIDE 100 mmol/L (98-107); CREATINE KINASE 81 IU/L (29-168); CREATININE, SERUM 0.82 mg/dL (0.57-1.11); EST GLOMERULAR FILTRATION RATE > 60 ML/MIN (60-); GLUCOSE 141 mg/dL (74-118); POTASSIUM 4.2 mmol/L (3.5-5.1); SODIUM 140 mmol/L (136-145)
[2019-10-06] MEDS ORDERED: IOPAMIDOL 370 MG/ML 200 ML INFUS..BTL INJ ONE (23:34)
[2019-10-06] MEDS ORDERED: SODIUM CHLORIDE 0.9% 50ML 50 ML ONE (23:34)
--- NOTE | 2019-10-07 00:57 | Diagnostic Imaging Report ---
EXAM: CT Abdomen and Pelvis WITH contrast INDICATION: epigastric pain COMPARISON: None. TECHNIQUE: Abdomen and pelvis were scanned utilizing a multidetector helical scanner from the lung base to the pubic symphysis after administration of IV contrast. Coronal and sagittal reformations were obtained. Routine protocol was performed. Scan was performed when during portal venous phase. IV CONTRAST: 100 mL of Isovue 370 ORAL CONTRAST: None COMPLICATIONS: None RADIATION DOSE: Total DLP: 361.29 mGy*cm Estimated effective dose: (DLP x 0.015 x size factor) mSv CTDIvol has been reviewed. It is below the limits set by the Radiation Protocol Committee (RPC). Dose modulation, iterative reconstruction, and/or weight based adjustment of the mA/kV was utilized to reduce the radiation dose to as low as reasonably achievable. FINDINGS: LINES and TUBES: None. LOWER THORAX: Unremarkable HEPATOBILIARY: Simple hepatic cyst. Mild prominence of the extra and intrahepatic biliary ducts likely due to cholecystectomy GALLBLADDER: There are cholecystectomy clips. SPLEEN: No splenomegaly. PANCREAS: No focal masses or ductal dilatation. ADRENALS: No adrenal nodules KIDNEYS/URETERS: Kidneys enhance symmetrically. No hydronephrosis. 6.1 cm simple right renal cyst. Additional right renal hypodensity that is too small to characterize, likely cyst. GI TRACT: Mildly dilated loops of small bowel measuring up to 3.3 cm with suspected transition point in the left hemiabdomen anteriorly on series #2 image 52. Distal bowel is decompressed. Subtle suggestion of fecalization within the small bowel seen on image #62. Trace free fluid adjacent to the transition point. There are diverticula within the colon without evidence of diverticulitis. Appendix is normal. There are a few short segment of the obstructive portions of the small bowel that demonstrate focal narrowing and hyperenhancement, which could be peristalsis, but an underlying inflammatory process is not excluded including inflammatory bowel disease. For reference, series #2 image 58. However, the terminal ileum appears unremarkable. PELVIC ORGANS/BLADDER: Hysterectomy. No adnexal masses. Urinary bladder unremarkable. LYMPH NODES: No lymphadenopathy. VESSELS: Unremarkable. PERITONEUM / RETROPERITONEUM: No free air. BONES: Unremarkable. SOFT TISSUES: Unremarkable. IMPRESSION: 1. Findings likely represent an early high-grade small bowel obstruction with transition point in the left lower quadrant. Trace free fluid adjacent to the transition point. Otherwise, no CT evidence of ischemia. 2. Short segments of the dilated portions of the small bowel demonstrate focal narrowing and hyperenhancement of the bowel parnell. This could represent peristalsis, but inflammatory bowel disease is not excluded. Consider follow-up abdomen and pelvis CT with contrast in 3 months to reassess. 3. Colonic diverticulosis without evidence of acute diverticulitis. Signed by: Cruzito Aburto MD on 10/07/2019 12:54 AM
[2019-10-07] MEDS ORDERED: PIPER-TAZ 3.375 GM 50 ML IV STA (01:07)
[2019-10-07] MEDS ORDERED: ONDANSETRON HCL INJ 2MG/ML 2ML 2 MG/ML VIAL IV STA (02:25)
[2019-10-07] MEDS ORDERED: MORPHINE SULFATE INJ 4 MG/ML INJ 1ML IV STA (02:25)
[2019-10-07 02:40] VITALS: BP 111/63
== END 2019-10-07 03:10 | disposition other institution (70) ==
LOC: ER 21:43
DX: K56.609 Unspecified intestinal obstruction, unspecified as to partial versus complete obstruction (principal); N39.0 Urinary tract infection, site not specified; R10.13 Epigastric pain; Z85.42 Personal history of malignant neoplasm of other parts of uterus
CPT/HCPCS: 36415; 74177; 80053; 81001; 82550; 82553; 83690; 84484; 85025; 93005; 99284; J2270 ×2; J2405; J2543; J7030; Q9967